=== PATIENT | female | born 1950 | race Caucasian/White ===

== ENCOUNTER 2020-06-15 17:47 | Outpatient (REF) | payer MEDICARE, MEDICAID, SELFPAY | END 2020-06-15 17:48 | disposition home or self-care (01) | LOC: HO.LNP 17:47 | PROVIDERS: Visit Provider Surgery | DX: L72.0 Epidermal cyst (principal) | CPT/HCPCS: 11401; 88304 ==

== ENCOUNTER → 2020-06-25 11:23 | Outpatient (BNVA) | payer MEDICARE, MEDICAID, SELFPAY | PROVIDERS: PCP Internal Medicine Geriatric Medicine; Visit Provider Surgery | DX: Z09 Encounter for follow-up examination after completed treatment for conditions other than malignant neoplasm (principal); Z87.2 Personal history of diseases of the skin and subcutaneous tissue | CPT/HCPCS: 99212 ==

== ENCOUNTER 2020-08-19 12:58 | Inpatient (IN) | payer MEDICARE, MEDICAID, SELFPAY ==
[2020-08-19] VITALS (10 sets, daily range): BP systolic 101–156; BP diastolic 52–78; PULSE 101–133; RESP 17–24; TEMP 36.6–37.1; O2SAT 96–99; BMI 32.9
--- NOTE | 2020-08-19 13:20 | ECG_ITS ---
Test Reason : AFIB Blood Pressure : / mmHG Vent. Rate : 111 BPM Atrial Rate : 394 BPM P-R Int : 000 ms QRS Dur : 106 ms QT Int : 390 ms P-R-T Axes : 000 016 122 degrees QTc Int : 530 ms Atrial fibrillation with rapid ventricular response with premature ventricular or aberrantly conducted complexes Nonspecific ST and T wave abnormality Prolonged QT Abnormal ECG When compared with ECG of 15-NOV-2006 13:50, Atrial fibrillation has replaced Sinus rhythm Vent. rate has increased BY [address] now depressed in Anterolateral leads T wave inversion now evident in Lateral leads Referred By: Pardeep Francois Electronically Signed By:Vishnu Mtz
--- NOTE | 2020-08-19 13:25 | XR_ITS ---
EXAMINATION: XR CHEST CLINICAL INFORMATION: Chest pain COMPARISON: Previous chest x-ray most recent June [address] April 2020 TECHNIQUE: Frontal view of the chest was obtained. FINDINGS: The cardiac and mediastinal contours are normal. There is bilateral airspace disease suggestive of pneumonia. There is no pleural effusion or pneumothorax. There are degenerative changes of the spine. XR/XR chest 1V IMPRESSION: Bilateral airspace disease probably representing pneumonia.
[2020-08-19] MEDS: 0.9 % Sodium Chloride 1,000 ML 999 ML IV ×2 (13:47→14:54)
[2020-08-19] MEDS: Metoclopramide HCl 10 MG/2 ML VIAL IVPUSH (13:47)
[2020-08-19 13:55] LABS: Basophils Percent Auto 0.2 % (0-2); Eosinophils Absolute Auto 0.1 X10*3/uL (0.0-0.4); Eosinophils Percent Auto 1.4 % (0-4); Hematocrit 31.4 % (37-47); Hemoglobin 10.5 g/dl (12.0-16.0); Imm Gran Abs Auto 0.03 X10*3/uL (0.00-0.03); Imm Gran Pct Auto 0.3 % (0.0-0.4); Lymphocytes Absolute Auto 1.6 X10*3/uL (1.2-4.9); Lymphocytes Percent Auto 18.7 % (20-40); MANUAL DIFF FLAG NO; Mean Corpuscular HGB Conc 33.4 g/dl (31.0-35.0); Mean Corpuscular Hemoglobin 30.3 pg (27.0-33.0); Mean Corpuscular Volume 90.8 fL (80-98); Mean Platelet Volume 9.9 fL (9.4-12.3); Monocytes Absolute Auto 0.7 X10*3/uL (0.1-1.2); Monocytes Percent Auto 7.5 % (2-11); Neutrophils Absolute Auto 6.2 X10*3/uL (2.0-8.3); Neutrophils Percent Auto 71.9 % (45-73); Platelet Count 518 X10*3/uL (160-400); Red Blood Count 3.46 X10*6/uL (4.20-5.50); Red Cell Distribution Width 13.2 % (11.0-16.0); White Blood Count 8.7 X10*3/uL (4.8-10.8)
[2020-08-19 14:01] LABS: INTERNATIONAL NORM RATIO 1.4 (0.9-1.1); Prothrombin Time 16.6 SEC (10.8-13.0)
[2020-08-19 14:04] LABS: Partial Thromboplastin Time 27.4 SEC (24.1-38.0)
[2020-08-19 14:11] LABS: D Dimer 3792 NG/ML
--- NOTE | 2020-08-19 14:13 | ED.ABDPAIN ---
HPI - Abdominal Pain General Chief Complaint: Abdominal Pain Stated Complaint: afib Time Seen by Provider: 08/19/20 13:24 Source: EMS Mode of arrival: EMS Limitations: no limitations History of Present Illness HPI narrative: This is a 69-year-old female with limited history secondary to her being poor historian and not many visits here as she primarily goes to [facility] she has past medical history that is significant for hypertension, hyperlipidemia, breast CA status post left breast mastectomy and bilateral knee replacement who presents today via EMS from home with complaint of 1 week of ongoing abdominal pain with associated nausea mild vomiting and profuse diarrhea per patient. States she has been contact her primary care over the past week and has tried several remedies without improving including nausea medicine fluid hydration which she vomits almost every time she has intake and additionally she did take Imodium for her diarrhea which did not seem to help her at all. She denies any chest pain or shortness of breath or headache. Did feel overall weak gradually over the past several days due to decreased p.o. intake. She denies any URI symptoms no cough or runny nose or fever. The diarrhea is described as watery/brown with very foul smell. Related Data Home Medications Medication Instructions Recorded Confirmed amlodipine 10 mg tablet 10 mg PO BEDTIME 06/15/20 08/19/20 anastrozole 1 mg tablet 1 mg PO DAILY 06/15/20 08/19/20 atorvastatin 80 mg tablet 80 mg PO BEDTIME 06/15/20 08/19/20 chlorthalidone 50 mg tablet 50 mg PO DAILY 06/15/20 08/19/20 clonazepam 1 mg tablet 1 mg PO DAILY 06/15/20 08/19/20 clopidogrel 75 mg tablet 75 mg PO DAILY 06/15/20 08/19/20 hydralazine 50 mg tablet 50 mg PO BID 06/15/20 08/19/20 lisinopril 40 mg tablet 40 mg PO DAILY 06/15/20 08/19/20 loratadine 10 mg tablet 10 mg PO DAILY 06/15/20 08/19/20 metoprolol succinate 100 mg 100 mg PO DAILY 06/15/20 08/19/20 tablet,extended release 24 hr oxycodone-acetaminophen 5 mg-325 1 tab PO Q8H PRN 06/15/20 08/19/20 mg tablet pantoprazole 20 mg tablet,delayed 20 mg PO DAILY 06/15/20 08/19/20 release sertraline 50 mg tablet 50 mg PO DAILY 06/15/20 08/19/20 primidone 50 mg PO BID 08/19/20 08/19/20 Allergies Allergy/AdvReac Type Severity Reaction Status Date / Time aspirin [ASA] Allergy Severe DIFFICULTY Verified 08/19/20 19:23 BREATHING Review of Systems Review of Systems Constitutional: No Weight loss, No Fever, No Chills, No Night Sweats, No Fatigue, No Malaise ENT/Mouth: No Hearing loss, No Ear Pain, No Nasal Congestion, No Sinus Pain, No Hoarseness, No sore throat, No Rhinorrhea, No Swallowing Difficulty Eyes: No Eye Pain, No Swelling, No Redness, No Foreign Body, No Discharge, No Vision Changes Cardiovascular: No Chest Pain, No SOB, No Dyspnea on Exertion, No Orthopnea, No Edema, No Palpitations Respiratory: No Cough, No Sputum, No Wheezing, No Smoke Exposure, No Dyspnea Gastrointestinal: As noted in HPI, No Hematochezia, No Melena Genitourinary: no irregular bleeding, No Dysuria, No Urinary Frequency, No Hematuria, No Urinary Incontinence, No Urgency, No Flank Pain, No Urinary Flow Changes Musculoskeletal: No joint pain, No Myalgias, No Joint Swelling Skin: No Skin Lesions, No rash Neuro: No Weakness, No Numbness, No Paresthesias, No Loss of Consciousness, No Dizziness, No Headache Psych: No Social Issues Heme/Lymph: No Bruising, No Bleeding,No Lymphadenopathy Endocrine: No Polyuria, No Polydipsia, No Temperature Intolerance Yes all other systems are reviewed and are negative Physical Exam Vital Signs: Vital Signs: Last Vital Signs Temp 98.8 F 08/19/20 20:00 Pulse 106 H 08/19/20 20:00 Resp 20 08/19/20 20:00 BP 105/56 L 08/19/20 20:00 Pulse Ox 99 08/19/20 20:00 Body Mass Index 32.9 Reviewed Const: General: cooperative and tired appearing; No acute distress Orientation/consciousness: patient oriented x3 HENMT: Head: Yes normal to inspection Ears: hearing grossly normal bilaterally Eyes: General: appearance normal, both eyes and all related structures Visual Silva: normal visual silva by confrontation Neck: Neck: Yes normal visual inspection and No tender Thyroid: Thyroid normal Chest: Chest palpation & inspection: normal inspection of the chest Resp: Effort & Inspection: normal respiratory effort Cardio: Jugular venous distension: no JVD Rate: Other (Irregular/AFib 95-120) GI: Inspection: Yes normal to inspection Palpation (GI): Soft to palpation Percussion: Yes normal to percussion Auscultation: normal bowel sounds : General: Yes no CVA tenderness Back/Spine/Pelvis: Back: no CVA tenderness Skin: General skin exam: no rashes or lesions noted Neuro: General: patient oriented x3 Extrem: General: Yes normal to inspection Course Course Course Narrative: In review 69-year-old female with history of hypertension, hyperlipidemia, CKD, breast CA status post mastectomy who presents with GI symptoms for the past 1 week upon arrival seems to be in AFib with RVR with no documented history. Will need labs, EKG and treat with gradual fluids. Clinically appears to be very dry. Previous labs reviewed has history of CKD with GFR in the 30s would prefer abdominal CT with IV contrast given the new onset AFib make sure there is no ischemic cause of the belly pain. Reevaluation(s) Reevaluation #1: 1413 Chest x-ray at this time shows ?bilateral airspace disease probably represent pneumonia? Lactic acid/blood cultures ordered Ceftriaxone ordered for presumed Hcap, suspicion for COVID-19 given her exposure to her daughter Labs show no leukocytosis, afebrile heart rate ranging from 110 to 115 AFib on bedside monitor CHADS2 Score for Atrial Fibrillation Stroke Risk: 1 I did speak to her daughter who also has the same name phone number [phone] She tells me that her mom has not been feeling well for past 1 week she herself has not been able to check on her as she had COVID-19 and quarantine for 14 days she was trying to reach her by phone was unable to and was finally will check on her over the past several days and appearing weak/dehydrated to her and not taking her medications as prescribed. No recent hospitalization or antibiotics. Reevaluation #2: COVID positive, D-dimer elevated though clinically does not appear to have pulmonary embolism as her pulse ox is 98-99% on room air. Given poor renal function in the setting of CKD V/Q scan was done showing low probability. CT of the abdomen also done dry did not show any acute findings. Abdominal exam has been benign. Stool specks ordered however has not had any bowel movement here in the ED. bedside occult negative. Initially she was in rapid AFib with RVR in the low 100s to 110's which somewhat progressed to 130s requiring Cardizem drip. BP maintained. Renal function significantly elevated from the previous after 2 L of fluid renal function improved though metabolic acidosis, hypokalemia which was repleted case discussed with nephrology Dr. Medrano covering for Dr. Clark who is familiar with the patient recommends LR at 75 cc an hour x1 L and repeat labs in the morning no need for bicarb drip at this time. Will follow in the morning. Additional Reevaluation(s): I spoke to the daughter as well as the son several times on the phone to give up days periodically about mother's care with her consent. Consultations Consultation #1: Nephrology Dr. Medrano Consultation #2: Hospitalist MDM - Abdominal Pain Lab Data Result diagrams: 08/19/20 19:45 08/19/20 17:01 Labs: Lab Results 08/19/20 08/19/20 08/19/20 Range/Units 13:39 13:39 13:39 WBC 8.7 (4.8-10.8) X10*3/uL RBC 3.46 L (4.20-5.50) X10*6/uL Hgb 10.5 L (12.0-16.0) g/dl Hct 31.4 L (37-47) % MCV 90.8 (80-98) fL MCH 30.3 (27.0-33.0) pg MCHC 33.4 (31.0-35.0) g/dl RDW 13.2 (11.0-16.0) % Plt Count 518 H (160-400) X10*3/uL MPV 9.9 (9.4-12.3) fL Immature Gran % (Auto) 0.3 (0.0-0.4) % Neut % (Auto) 71.9 (45-73) % Lymph % (Auto) 18.7 L (20-40) % [place] % (Auto) 7.5 (2-11) % Eos % (Auto) 1.4 (0-4) % Baso % (Auto) 0.2 (0-2) % Lymph # (Auto) 1.6 (1.2-4.9) X10*3/uL [place] # (Auto) 0.7 (0.1-1.2) X10*3/uL Eos # (Auto) 0.1 (0.0-0.4) X10*3/uL Baso # (Auto) 0.0 (0.0-0.2) X10*3/uL Abs Immat Gran (auto) 0.03 (0.00-0.03) X10*3/uL Absolute Neuts (auto) 6.2 (2.0-8.3) X10*3/uL Absolute Nucleated RBC 0.000 (0.0-0.012) X10*3/uL Nucleated RBC % (auto) 0.0 (0.0-0.2) /100WBC PT (10.8-13.0) SEC INR (0.9-1.1) APTT (24.1-38.0) SEC PTT (Heparin Protocol) (53-77.9) SEC D-Dimer NG/ML Sodium 139 (135-145) mmol/L Potassium 3.8 (3.3-5.1) mmol/l Chloride 104 (96-108) mmol/L Carbon Dioxide 17 L (22-29) mmol/L Anion Gap 22 H (12-20) BUN 170 H* (9-16) mg/dL Creatinine 3.83 H (0.5-1.4) mg/dL Estim Creat Clear Calc 13.5 Estimated GFR 12 Random Glucose 124 H (60-115) mg/dL Lactic Acid (0.5-2.0) mmol/L Calcium 8.8 (8.4-10.2) mg/dL Magnesium (1.6-2.6) mg/dL Ferritin 850 H (10-250) ng/mL Total Bilirubin 0.5 (0.0-1.0) mg/dL AST 40 H (5-31) U/L ALT 75 H (0-31) U/L Alkaline Phosphatase 104 (39-117) U/L Lactate Dehydrogenase 247 H (122-220) U/L Troponin I High Sens 24.2 H (<3.5-17.0) ng/L C-Reactive Protein 5.10 H (< or = 0.50) mg/dL Total Protein 7.8 (6.5-8.0) g/dL Albumin 4.2 (3.5-5.0) g/dL Procalcitonin ng/mL TSH 1.06 (0.32-4.0) uIU/mL Urine Color Urine Appearance Urine pH (5.0-8.0) Ur Specific [place] (1.005-1.025) Urine Protein (NEG-TRACE) MG/DL Urine Glucose (UA) (NEG) MG/DL Urine Ketones (NEG) MG/DL Urine Blood (NEG) Urine Nitrite (NEG) Ur Leukocyte Esterase (NEG) Urine RBC (0) /HPF Urine WBC (0-4) /HPF Ur Squamous Epith Cells /LPF Amorphous Sediment /LPF Urine Bacteria /LPF Stool Occult Blood (NEG) C. difficile Toxin A&B (Negative) C. difficile Antigen (Negative) C. difficile Interpret Coronavirus (PCR) (Negative) Influenza Type A (PCR) (Negative) Influenza Type B (PCR) (Negative) RSV RNA Qual (PCR) (Negative) 08/19/20 08/19/20 08/19/20 Range/Units 13:39 13:39 13:39 WBC (4.8-10.8) X10*3/uL RBC (4.20-5.50) X10*6/uL Hgb (12.0-16.0) g/dl Hct (37-47) % MCV (80-98) fL MCH (27.0-33.0) pg MCHC (31.0-35.0) g/dl RDW (11.0-16.0) % Plt Count (160-400) X10*3/uL MPV (9.4-12.3) fL Immature Gran % (Auto) (0.0-0.4) % Neut % (Auto) (45-73) % Lymph % (Auto) (20-40) % [place] % (Auto) (2-11) % Eos % (Auto) (0-4) % Baso % (Auto) (0-2) % Lymph # (Auto) (1.2-4.9) X10*3/uL [place] # (Auto) (0.1-1.2) X10*3/uL Eos # (Auto) (0.0-0.4) X10*3/uL Baso # (Auto) (0.0-0.2) X10*3/uL Abs Immat Gran (auto) (0.00-0.03) X10*3/uL Absolute Neuts (auto) (2.0-8.3) X10*3/uL Absolute Nucleated RBC (0.0-0.012) X10*3/uL Nucleated RBC % (auto) (0.0-0.2) /100WBC PT 16.6 H (10.8-13.0) SEC INR 1.4 H (0.9-1.1) APTT 27.4 (24.1-38.0) SEC PTT (Heparin Protocol) (53-77.9) SEC D-Dimer 3792 NG/ML Sodium (135-145) mmol/L Potassium (3.3-5.1) mmol/l Chloride (96-108) mmol/L Carbon Dioxide (22-29) mmol/L Anion Gap (12-20) BUN (9-16) mg/dL Creatinine (0.5-1.4) mg/dL Estim Creat Clear Calc Estimated GFR Random Glucose (60-115) mg/dL Lactic Acid (0.5-2.0) mmol/L Calcium (8.4-10.2) mg/dL Magnesium 3.1 H (1.6-2.6) mg/dL Ferritin (10-250) ng/mL Total Bilirubin (0.0-1.0) mg/dL AST (5-31) U/L ALT (0-31) U/L Alkaline Phosphatase (39-117) U/L Lactate Dehydrogenase (122-220) U/L Troponin I High Sens (<3.5-17.0) ng/L C-Reactive Protein (< or = 0.50) mg/dL Total Protein (6.5-8.0) g/dL Albumin (3.5-5.0) g/dL Procalcitonin 0.28 ng/mL TSH (0.32-4.0) uIU/mL Urine Color Urine Appearance Urine pH (5.0-8.0) Ur Specific [place] (1.005-1.025) Urine Protein (NEG-TRACE) MG/DL Urine Glucose (UA) (NEG) MG/DL Urine Ketones (NEG) MG/DL Urine Blood (NEG) Urine Nitrite (NEG) Ur Leukocyte Esterase (NEG) Urine RBC (0) /HPF Urine WBC (0-4) /HPF Ur Squamous Epith Cells /LPF Amorphous Sediment /LPF Urine Bacteria /LPF Stool Occult Blood (NEG) C. difficile Toxin A&B (Negative) C. difficile Antigen (Negative) C. difficile Interpret Coronavirus (PCR) (Negative) Influenza Type A (PCR) (Negative) Influenza Type B (PCR) (Negative) RSV RNA Qual (PCR) (Negative) 08/19/20 08/19/20 08/19/20 Range/Units 15:10 15:29 16:07 WBC (4.8-10.8) X10*3/uL RBC (4.20-5.50) X10*6/uL Hgb (12.0-16.0) g/dl Hct (37-47) % MCV (80-98) fL MCH (27.0-33.0) pg MCHC (31.0-35.0) g/dl RDW (11.0-16.0) % Plt Count (160-400) X10*3/uL MPV (9.4-12.3) fL Immature Gran % (Auto) (0.0-0.4) % Neut % (Auto) (45-73) % Lymph % (Auto) (20-40) % [place] % (Auto) (2-11) % Eos % (Auto) (0-4) % Baso % (Auto) (0-2) % Lymph # (Auto) (1.2-4.9) X10*3/uL [place] # (Auto) (0.1-1.2) X10*3/uL Eos # (Auto) (0.0-0.4) X10*3/uL Baso # (Auto) (0.0-0.2) X10*3/uL Abs Immat Gran (auto) (0.00-0.03) X10*3/uL Absolute Neuts (auto) (2.0-8.3) X10*3/uL Absolute Nucleated RBC (0.0-0.012) X10*3/uL Nucleated RBC % (auto) (0.0-0.2) /100WBC PT (10.8-13.0) SEC INR (0.9-1.1) APTT (24.1-38.0) SEC PTT (Heparin Protocol) (53-77.9) SEC D-Dimer NG/ML Sodium (135-145) mmol/L Potassium (3.3-5.1) mmol/l Chloride (96-108) mmol/L Carbon Dioxide (22-29) mmol/L Anion Gap (12-20) BUN (9-16) mg/dL Creatinine (0.5-1.4) mg/dL Estim Creat Clear Calc Estimated GFR Random Glucose (60-115) mg/dL Lactic Acid 1.1 (0.5-2.0) mmol/L Calcium (8.4-10.2) mg/dL Magnesium (1.6-2.6) mg/dL Ferritin (10-250) ng/mL Total Bilirubin (0.0-1.0) mg/dL AST (5-31) U/L ALT (0-31) U/L Alkaline Phosphatase (39-117) U/L Lactate Dehydrogenase (122-220) U/L Troponin I High Sens (<3.5-17.0) ng/L C-Reactive Protein (< or = 0.50) mg/dL Total Protein (6.5-8.0) g/dL Albumin (3.5-5.0) g/dL Procalcitonin ng/mL TSH (0.32-4.0) uIU/mL Urine Color YELLOW Urine Appearance CLEAR Urine pH 5.0 (5.0-8.0) Ur Specific [place] 1.015 (1.005-1.025) Urine Protein NEG (NEG-TRACE) MG/DL Urine Glucose (UA) NEG (NEG) MG/DL Urine Ketones NEG (NEG) MG/DL Urine Blood NEG (NEG) Urine Nitrite NEG (NEG) Ur Leukocyte Esterase NEG (NEG) Urine RBC 0-2 (0) /HPF Urine WBC 0 (0-4) /HPF Ur Squamous Epith Cells TRACE /LPF Amorphous Sediment 1+ /LPF Urine Bacteria NONE /LPF Stool Occult Blood (NEG) C. difficile Toxin A&B (Negative) C. difficile Antigen (Negative) C. difficile Interpret Coronavirus (PCR) POSITIVE A (Negative) Influenza Type A (PCR) NEGATIVE (Negative) Influenza Type B (PCR) NEGATIVE (Negative) RSV RNA Qual (PCR) NEGATIVE (Negative) 08/19/20 08/19/20 08/19/20 Range/Units 17:01 17:01 19:41 WBC (4.8-10.8) X10*3/uL RBC (4.20-5.50) X10*6/uL Hgb (12.0-16.0) g/dl Hct (37-47) % MCV (80-98) fL MCH (27.0-33.0) pg MCHC (31.0-35.0) g/dl RDW (11.0-16.0) % Plt Count (160-400) X10*3/uL MPV (9.4-12.3) fL Immature Gran % (Auto) (0.0-0.4) % Neut % (Auto) (45-73) % Lymph % (Auto) (20-40) % [place] % (Auto) (2-11) % Eos % (Auto) (0-4) % Baso % (Auto) (0-2) % Lymph # (Auto) (1.2-4.9) X10*3/uL [place] # (Auto) (0.1-1.2) X10*3/uL Eos # (Auto) (0.0-0.4) X10*3/uL Baso # (Auto) (0.0-0.2) X10*3/uL Abs Immat Gran (auto) (0.00-0.03) X10*3/uL Absolute Neuts (auto) (2.0-8.3) X10*3/uL Absolute Nucleated RBC (0.0-0.012) X10*3/uL Nucleated RBC % (auto) (0.0-0.2) /100WBC PT (10.8-13.0) SEC INR (0.9-1.1) APTT (24.1-38.0) SEC PTT (Heparin Protocol) (53-77.9) SEC D-Dimer NG/ML Sodium 142 (135-145) mmol/L Potassium 2.9 L D (3.3-5.1) mmol/l Chloride 117 H (96-108) mmol/L Carbon Dioxide 12 L (22-29) mmol/L Anion Gap 16 (12-20) BUN 126 H* D (9-16) mg/dL Creatinine 2.50 H (0.5-1.4) mg/dL Estim Creat Clear Calc 20.7 Estimated GFR 19 Random Glucose 95 (60-115) mg/dL Lactic Acid (0.5-2.0) mmol/L Calcium 6.3 L D (8.4-10.2) mg/dL Magnesium (1.6-2.6) mg/dL Ferritin (10-250) ng/mL Total Bilirubin (0.0-1.0) mg/dL AST (5-31) U/L ALT (0-31) U/L Alkaline Phosphatase (39-117) U/L Lactate Dehydrogenase (122-220) U/L Troponin I High Sens 25.0 H (<3.5-17.0) ng/L C-Reactive Protein (< or = 0.50) mg/dL Total Protein (6.5-8.0) g/dL Albumin (3.5-5.0) g/dL Procalcitonin ng/mL TSH (0.32-4.0) uIU/mL Urine Color Urine Appearance Urine pH (5.0-8.0) Ur Specific [place] (1.005-1.025) Urine Protein (NEG-TRACE) MG/DL Urine Glucose (UA) (NEG) MG/DL Urine Ketones (NEG) MG/DL Urine Blood (NEG) Urine Nitrite (NEG) Ur Leukocyte Esterase (NEG) Urine RBC (0) /HPF Urine WBC (0-4) /HPF Ur Squamous Epith Cells /LPF Amorphous Sediment /LPF Urine Bacteria /LPF Stool Occult Blood NEG (NEG) C. difficile Toxin A&B (Negative) C. difficile Antigen (Negative) C. difficile Interpret Coronavirus (PCR) (Negative) Influenza Type A (PCR) (Negative) Influenza Type B (PCR) (Negative) RSV RNA Qual (PCR) (Negative) 08/19/20 08/19/20 08/19/20 Range/Units 19:41 19:45 19:45 WBC 8.4 (4.8-10.8) X10*3/uL RBC 3.19 L (4.20-5.50) X10*6/uL Hgb 9.6 L (12.0-16.0) g/dl Hct 29.2 L (37-47) % MCV 91.5 (80-98) fL MCH 30.1 (27.0-33.0) pg MCHC 32.9 (31.0-35.0) g/dl RDW 13.1 (11.0-16.0) % Plt Count 526 H (160-400) X10*3/uL MPV 9.7 (9.4-12.3) fL Immature Gran % (Auto) (0.0-0.4) % Neut % (Auto) (45-73) % Lymph % (Auto) (20-40) % [place] % (Auto) (2-11) % Eos % (Auto) (0-4) % Baso % (Auto) (0-2) % Lymph # (Auto) (1.2-4.9) X10*3/uL [place] # (Auto) (0.1-1.2) X10*3/uL Eos # (Auto) (0.0-0.4) X10*3/uL Baso # (Auto) (0.0-0.2) X10*3/uL Abs Immat Gran (auto) (0.00-0.03) X10*3/uL Absolute Neuts (auto) (2.0-8.3) X10*3/uL Absolute Nucleated RBC 0.000 (0.0-0.012) X10*3/uL Nucleated RBC % (auto) 0.0 (0.0-0.2) /100WBC PT 18.5 H (10.8-13.0) SEC INR 1.6 H (0.9-1.1) APTT (24.1-38.0) SEC PTT (Heparin Protocol) 74.2 (53-77.9) SEC D-Dimer NG/ML Sodium (135-145) mmol/L Potassium (3.3-5.1) mmol/l Chloride (96-108) mmol/L Carbon Dioxide (22-29) mmol/L Anion Gap (12-20) BUN (9-16) mg/dL Creatinine (0.5-1.4) mg/dL Estim Creat Clear Calc Estimated GFR Random Glucose (60-115) mg/dL Lactic Acid (0.5-2.0) mmol/L Calcium (8.4-10.2) mg/dL Magnesium (1.6-2.6) mg/dL Ferritin (10-250) ng/mL Total Bilirubin (0.0-1.0) mg/dL AST (5-31) U/L ALT (0-31) U/L Alkaline Phosphatase (39-117) U/L Lactate Dehydrogenase (122-220) U/L Troponin I High Sens (<3.5-17.0) ng/L C-Reactive Protein (< or = 0.50) mg/dL Total Protein (6.5-8.0) g/dL Albumin (3.5-5.0) g/dL Procalcitonin ng/mL TSH (0.32-4.0) uIU/mL Urine Color Urine Appearance Urine pH (5.0-8.0) Ur Specific [place] (1.005-1.025) Urine Protein (NEG-TRACE) MG/DL Urine Glucose (UA) (NEG) MG/DL Urine Ketones (NEG) MG/DL Urine Blood (NEG) Urine Nitrite (NEG) Ur Leukocyte Esterase (NEG) Urine RBC (0) /HPF Urine WBC (0-4) /HPF Ur Squamous Epith Cells /LPF Amorphous Sediment /LPF Urine Bacteria /LPF Stool Occult Blood (NEG) C. difficile Toxin A&B Negative (Negative) C. difficile Antigen Negative (Negative) C. difficile Interpret SEE NOTE Coronavirus (PCR) (Negative) Influenza Type A (PCR) (Negative) Influenza Type B (PCR) (Negative) RSV RNA Qual (PCR) (Negative) Imaging Data CT scan - abdomen: Radiologist's impression: [place] [id number] CT Scan Report Signed Patient: Soren Caicedo#: [id number] : 1950Acct:[id number] Age/Sex: 69 / FADM Date: 08/19/20 Loc: HO.ED Attending Dr: Ordering Physician: Pardeep Francois [employer] DEL[employer]HICLE TEAM TECHNICIAN Date of Service: 08/19/20 Procedure(s): CT abdomen pelvis wo con Accession Number(s): [id number] cc: Pardeep Francois [employer] DELIV[employer]HICLE TEAM TECHNICIAN~ EXAMINATION: CT ABDOMEN AND PELVIS WITHOUT CONTRAST CLINICAL INFORMATION: Abdominal pain. COMPARISON: Chest CT 04/18/2020. Chest radiograph earlier today. TECHNIQUE: Multidetector volumetric imaging was performed from the superior aspect of the liver through the pubic symphysis. Sagittal and coronal reformatted images were obtained on the technologist's workstation. This CT examination was performed using dose optimization techniques as appropriate, variously including the following: *Automated exposure control *Adjustment of mA and/or kV according to patient size (this includes techniques or standardized protocols for targeted exams where dose is matched to indication/reason for exam; i.e. extremities or head) *Use of iterative reconstruction technique DLP: 597 mGy-cm FINDINGS: LUNG BASES: Scattered ground-glass infiltrates are present suggestive of COVID pneumonia. Inferior aspect of a right breast prosthesis is present. A small hiatal hernia is present. LIVER, GALLBLADDER, AND BILIARY TREE: The liver is normal in size, shape, and attenuation. A tiny punctate granuloma is noted near the risa hepatis. No focal hepatic lesion or biliary ductal dilatation is present. The gallbladder contains layering small gallstones but is otherwise unremarkable with no evidence of wall thickening, or obvious pericholecystic inflammatory changes. PANCREAS: Unremarkable. SPLEEN: Unremarkable. ADRENAL GLANDS: Unremarkable. KIDNEYS AND URETERS: The kidneys are normal in size, shape, and attenuation. No hydronephrosis, hydroureter, or calculi seen. No perinephric stranding. BLADDER: Unremarkable. GASTROINTESTINAL TRACT: The small and large bowel are unremarkable. The appendix is not seen. ABDOMINAL WALL: No significant hernia is appreciated. LYMPH NODES: No retroperitoneal lymphadenopathy is present. VASCULAR: Calcific atherosclerotic change is present in the aorta without aneurysm. PELVIC VISCERA: An anteverted uterus is present. An abnormal adnexal mass or free intraperitoneal fluid is not seen. OSSEOUS STRUCTURES: Degenerative change is present in the spine with pedicular screws and fixation at L4-L5. No bony destructive lesions seen. CT/CT abdomen pelvis wo con IMPRESSION: Findings the lung bases suggestive of COVID pneumonia. Cholelithiasis without cholecystitis. Tiny hepatic granuloma. Degenerative and postoperative changes in the spine. Dictated By:BRITTANY MCKEON MD Signed By:<Electronically signed by BRITTANY MCKEON MD in [facility]>08/19/20 1712 DD/ 1441 TD/TT: Rock Crushing Machine Operator: JOSEFINA Pulmonary perfusion imaging: Radiologist's impression: [place] [id number] [place] [address] Nuclear Medicine Report Signed Patient: Soren Caicedo#: [id number] : 1950Acct:[id number] Age/Sex: 69 / FADM Date: 08/19/20 Loc: HO.ED Attending Dr: Ordering Physician: Pardeep Francois NP Date of Service: 08/19/20 Procedure(s): NM pul perfusion Accession Number(s): [id number] cc: Pardeep Francois [employer] DELIV[employer]HICLE TEAM TECHNICIAN~ EXAMINATION: PULMONARY PERFUSION STUDY CLINICAL INFORMATION: Elevated d-dimer. COMPARISON: Chest x-ray earlier 08/19/2020. TECHNIQUE: The patient received 3.5 mCi Tc-99m MAA intravenously and an 8 view perfusion study was performed. FINDINGS: No segmental perfusion defects are present. There is homogeneous distribution of activity bilaterally. There are no focal anatomic appearing perfusion defects present. NM/NM pul perfusion IMPRESSION: 1. Very low probability radionuclide lung perfusion scan. 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 Multiple consultations with Nephrology, hospitalist. Discharge Plan Discharge Clinical Impression: Acute kidney injury superimposed on CKD, Pneumonia due to COVID-19 virus, Atrial fibrillation with RVR, Hypokalemia, Metabolic acidosis, Diarrhea Patient Disposition: Admitted As Inpatient [facility] Past Medical History Medical History (Updated 08/19/20 @ 20:54 by Pardeep Francois NP) Anemia Breast cancer CKD (chronic kidney disease) Hyperlipidemia Hypertension Stroke Tremor Surgical History History of appendectomy History of right mastectomy (~2015) History of spinal fusion Family History Family History Mother History of pancreatic cancer Brother History of pancreatic cancer Social History Social History Alcohol intake: never Smoking Status: Never smoker Use of substances other than those prescribed or required for medical reasons: No Advance Directives: No Advance Directives Information Provided: Yes
[2020-08-19 14:32] LABS: Magnesium 3.1 mg/dL (1.6-2.6)
[2020-08-19 14:39] LABS: Alanine Aminotransferase 75 U/L (0-31); Albumin Level 4.2 g/dL (3.5-5.0); Alkaline Phosphatase 104 U/L (39-117); Anion Gap 22 (12-20); Aspartate Amino Transferase 40 U/L (5-31); Bilirubin Total 0.5 mg/dL (0.0-1.0); Calcium 8.8 mg/dL (8.4-10.2); Carbon Dioxide 17 mmol/L (22-29); Chloride 104 mmol/L (96-108); Creatinine Clr Calc Pharmacy 13.5; Estimated Glomerular Filt Rate 12; Glucose Random 124 mg/dL (60-115); Potassium 3.8 mmol/l (3.3-5.1); Sodium 139 mmol/L (135-145); Total Protein 7.8 g/dL (6.5-8.0)
--- NOTE | 2020-08-19 14:41 | CT_ITS ---
EXAMINATION: CT ABDOMEN AND PELVIS WITHOUT CONTRAST CLINICAL INFORMATION: Abdominal pain. COMPARISON: Chest CT 04/18/2020. Chest radiograph earlier today. TECHNIQUE: Multidetector volumetric imaging was performed from the superior aspect of the liver through the pubic symphysis. Sagittal and coronal reformatted images were obtained on the technologist's workstation. This CT examination was performed using dose optimization techniques as appropriate, variously including the following: *Automated exposure control *Adjustment of mA and/or kV according to patient size (this includes techniques or standardized protocols for targeted exams where dose is matched to indication/reason for exam; i.e. extremities or head) *Use of iterative reconstruction technique DLP: 597 mGy-cm FINDINGS: LUNG BASES: Scattered ground-glass infiltrates are present suggestive of COVID pneumonia. Inferior aspect of a right breast prosthesis is present. A small hiatal hernia is present. LIVER, GALLBLADDER, AND BILIARY TREE: The liver is normal in size, shape, and attenuation. A tiny punctate granuloma is noted near the risa hepatis. No focal hepatic lesion or biliary ductal dilatation is present. The gallbladder contains layering small gallstones but is otherwise unremarkable with no evidence of wall thickening, or obvious pericholecystic inflammatory changes. PANCREAS: Unremarkable. SPLEEN: Unremarkable. ADRENAL GLANDS: Unremarkable. KIDNEYS AND URETERS: The kidneys are normal in size, shape, and attenuation. No hydronephrosis, hydroureter, or calculi seen. No perinephric stranding. BLADDER: Unremarkable. GASTROINTESTINAL TRACT: The small and large bowel are unremarkable. The appendix is not seen. ABDOMINAL WALL: No significant hernia is appreciated. LYMPH NODES: No retroperitoneal lymphadenopathy is present. VASCULAR: Calcific atherosclerotic change is present in the aorta without aneurysm. PELVIC VISCERA: An anteverted uterus is present. An abnormal adnexal mass or free intraperitoneal fluid is not seen. OSSEOUS STRUCTURES: Degenerative change is present in the spine with pedicular screws and fixation at L4-L5. No bony destructive lesions seen. CT/CT abdomen pelvis wo con IMPRESSION: Findings the lung bases suggestive of COVID pneumonia. Cholelithiasis without cholecystitis. Tiny hepatic granuloma. Degenerative and postoperative changes in the spine.
--- NOTE | 2020-08-19 14:41 | NM_ITS ---
EXAMINATION: PULMONARY PERFUSION STUDY CLINICAL INFORMATION: Elevated d-dimer. COMPARISON: Chest x-ray earlier 08/19/2020. TECHNIQUE: The patient received 3.5 mCi Tc-99m MAA intravenously and an 8 view perfusion study was performed. FINDINGS: No segmental perfusion defects are present. There is homogeneous distribution of activity bilaterally. There are no focal anatomic appearing perfusion defects present. NM/NM pul perfusion IMPRESSION: 1. Very low probability radionuclide lung perfusion scan.
[2020-08-19 14:52] LABS: Blood Urea Nitrogen 170 mg/dL (9-16)
[2020-08-19 14:53] LABS: Thyroid Stimulating Hormone 1.06 uIU/mL (0.32-4.0)
[2020-08-19 14:54] LABS: Troponin-I High Sensitivity 24.2 ng/L (<3.5-17.0)
[2020-08-19] MEDS: cefTRIAXone sodium 1 GM in 0.9 % Sodium Chloride 50 ML IV (15:30)
[2020-08-19] MEDS: dilTIAZem HCL 50 MG/10 ML VIAL 10 MG IVPUSH (15:41)
[2020-08-19 15:59] LABS: Lactic Acid 1.1 mmol/L (0.5-2.0)
[2020-08-19 16:17] LABS: Influenza A PCR NEGATIVE (Negative); Influenza B PCR NEGATIVE (Negative); Resp Syncy Virus RNA Qual PCR NEGATIVE (Negative); SARS COV2 PCR INHOUSE POSITIVE (Negative)
[2020-08-19 16:51] LABS: Glucose Urine UA NEG (NEG); Leukocyte Esterase Urine NEG (NEG); Nitrite Urine NEG (NEG); Specific Gravity - Urine 1.015 (1.005-1.025); Urine Blood NEG (NEG); Urine Ketones NEG (NEG); Urine Protein NEG (NEG-TRACE)
[2020-08-19 16:54] LABS: Appearance Urine CLEAR; Color Urine YELLOW
[2020-08-19 17:07] LABS: Amorphous Sediment Urine 1+ /LPF; RBC Urine 0-2 /HPF (0); Squamous Epithelial Cell Urine TRACE /LPF; WBC Urine 0 /HPF (0-4)
[2020-08-19] MEDS: dilTIAZem HCL 125 MG in 0.9 % Sodium Chloride 100 ML 10 MG IVCONT (17:07)
[2020-08-19 17:33] LABS: Glucose Random 95 mg/dL (60-115)
--- NOTE | 2020-08-19 17:35 | PC.NURSE ---
pt returned from nuc med scan, placed in iso d/t +covid. pt appears comfortable, no questions or concerns at this time. pt understanding of this rn speaking in latvian, pt educated if she needs interpretter to ask. medicated per emar. vss. awaiting lab results and add on lab work results.
[2020-08-19 17:42] LABS: Anion Gap 16 (12-20); Blood Urea Nitrogen 126 mg/dL (9-16); Calcium 6.3 mg/dL (8.4-10.2); Carbon Dioxide 12 mmol/L (22-29); Chloride 117 mmol/L (96-108); Creatinine Clr Calc Pharmacy 20.7; Estimated Glomerular Filt Rate 19; Potassium 2.9 mmol/l (3.3-5.1); Sodium 142 mmol/L (135-145)
[2020-08-19 17:47] LABS: Lactate Dehydrogenase 247 U/L (122-220)
[2020-08-19 18:09] LABS: Ferritin 850 ng/mL (10-250)
[2020-08-19 18:14] LABS: Procalcitonin 0.28 ng/mL
[2020-08-19] MEDS: Heparin Sodium,Porcine 5,000 UNIT/ML VIAL 5000 UNIT IVPUSH (18:21)
--- NOTE | 2020-08-19 18:26 | PC.NURSE ---
THIS RN IN TO MEDICATE PT, PT ASKING TO LEAVE AMA. PROVIDER AND INTERPRETTER AT BEDSIDE. PT IS ASKING TO BE DISCHARGED HOME BUT WHEN PRESSED WHY SHE NO LONGER WANTS TO STAY, PT DOES NOT GIVE REASON OTHER THAN I HAVE RESPONSIBILITIES AND I DONT WANT TO BE HOSPITALS RESPONSIBILIY . PROVIDER AND PT CONVERSING W FAMILY VIA TELEPHONE REGARDING PT STATUS AND CONSEQUENCES OF LEAVING AMA. WCTM.
[2020-08-19] MEDS: LORazepam 2 MG/ML VIAL 1 MG IVPUSH (18:42)
[2020-08-19 19:52] LABS: Hematocrit 29.2 % (37-47); Hemoglobin 9.6 g/dl (12.0-16.0); Mean Corpuscular HGB Conc 32.9 g/dl (31.0-35.0); Mean Corpuscular Hemoglobin 30.1 pg (27.0-33.0); Mean Corpuscular Volume 91.5 fL (80-98); Mean Platelet Volume 9.7 fL (9.4-12.3); Platelet Count 526 X10*3/uL (160-400); Red Blood Count 3.19 X10*6/uL (4.20-5.50); Red Cell Distribution Width 13.1 % (11.0-16.0); White Blood Count 8.4 X10*3/uL (4.8-10.8)
--- NOTE | 2020-08-19 19:54 | P.HPHOSP_ITS ---
History of Present Illness Date of Service: 08/19/20 <WANDA Ramos Last Filed: 08/19/20 20:09> Chief Complaint: Abdominal pain, nausea, vomiting, diarrhea <WANDA Ramos Last Filed: 08/19/20 20:09> This is a 69-year-old female who originally presented to the emergency department with abdominal complaints. She reported abdominal pain as well as the vomiting and diarrhea. She underwent a CT scan of her abdomen which showed no abdominal pathology. It did however show findings in the lung bases suggestive of COVID pneumonia. She did in fact test positive for coronavirus. Her inflammatory markers including CRP, LDH and ferritin were elevated. However she was not noted to be hypoxic. She denies any shortness of breath or cough. She denies any significant fever. She was noted to be in new onset atrial fibrillation with rapid ventricular response and was started on Cardizem drip as well as heparin for anticoagulation given a chads Vasc score of 3. Lab work was significant for acute on chronic kidney injury and she was treated with normal saline. Repeat chemistry showed no improvement in her renal function however her bicarb dropped to 12 and potassium dropped to 2.9. Nephrology was consulted and recommended giving 75 cc of LR x1 L and repeating chemistries. Did not feel that bicarb was warranted at this time. Her D-dimer was elevated however V/Q scan showed low probability of PE. <WANDA Ramos - Last Filed: 08/19/20 20:09> Review of Systems Review of Systems: Yes all other systems are reviewed and are negative <WANDA Ramos Last Filed: 08/19/20 20:09> Constitutional: Constitutional: Denies chills and Denies fever(s) <WANDA Ramos Last Filed: 08/19/20 20:09> Cardiovascular: Cardiovascular: Denies chest pain <WANDA Ramos Last Filed: 08/19/20 20:09> Respiratory: Respiratory: Denies cough <WANDA Ramos Last Filed: 08/19/20 20:09> Neurologic: Reports confusion <WANDA Ramos Last Filed: 08/19/20 20:09> Psychiatric: Psychiatric: Reports confusion <WANDA Ramos - Last Filed: 08/19/20 20:09> [facility], [facility] Medical History: Medical History Anemia Breast cancer CKD (chronic kidney disease) Hyperlipidemia Hypertension Stroke Tremor <WANDA Ramos - Last Filed: 08/19/20 20:09> Functional capacity: independent ambulation <WANDA Ramos - Last Filed: 08/19/20 20:09> Family History: Family History Mother History of pancreatic cancer Brother History of pancreatic cancer <WANDA Ramos - Last Filed: 08/19/20 20:09> Family history: reviewed and not pertinent <WANDA Ramos - Last Filed: 08/19/20 20:09> Surgical History: Surgical History History of appendectomy History of right mastectomy (~2015) History of spinal fusion <WANDA Ramos - Last Filed: 08/19/20 20:09> Social History: Social History Alcohol intake: never Smoking Status: Never smoker Use of substances other than those prescribed or required for medical reasons: No Advance Directives: No Advance Directives Information Provided: Yes <WANDA Ramos - Last Filed: 08/19/20 20:09> Meds Allergies/Adverse reactions: Allergies Allergy/AdvReac Type Severity Reaction Status Date / Time aspirin [ASA] Allergy Severe DIFFICULTY Verified 08/19/20 19:23 BREATHING <WANDA Ramos - Last Filed: 08/19/20 20:09> Home medications: Home Medications Medication Instructions Recorded Confirmed Type amlodipine 10 mg tablet 10 mg PO BEDTIME 06/15/20 08/19/20 History anastrozole 1 mg tablet 1 mg PO DAILY 06/15/20 08/19/20 History atorvastatin 80 mg tablet 80 mg PO BEDTIME 06/15/20 08/19/20 History chlorthalidone 50 mg tablet 50 mg PO DAILY 06/15/20 08/19/20 History clonazepam 1 mg tablet 1 mg PO DAILY 06/15/20 08/19/20 History clopidogrel 75 mg tablet 75 mg PO DAILY 06/15/20 08/19/20 History hydralazine 50 mg tablet 50 mg PO BID 06/15/20 08/19/20 History lisinopril 40 mg tablet 40 mg PO DAILY 06/15/20 08/19/20 History loratadine 10 mg tablet 10 mg PO DAILY 06/15/20 08/19/20 History metoprolol succinate 100 mg 100 mg PO DAILY 06/15/20 08/19/20 History tablet,extended release 24 hr oxycodone-acetaminophen 5 mg-325 1 tab PO Q8H PRN 06/15/20 08/19/20 History mg tablet pantoprazole 20 mg tablet,delayed 20 mg PO DAILY 06/15/20 08/19/20 History release sertraline 50 mg tablet 50 mg PO DAILY 06/15/20 08/19/20 History primidone 50 mg PO BID 08/19/20 08/19/20 History <WANDA Ramos - Last Filed: 08/19/20 20:09> Physical Exam Vital Signs and Narrative: Vital Signs: Last Vital Signs Temp 98.6 F 08/19/20 18:00 Pulse 102 H 08/19/20 18:00 Resp 17 08/19/20 18:00 BP 127/52 L 08/19/20 18:00 Pulse Ox 98 08/19/20 18:00 Body Mass Index 32.9 <WANDA Ramos Last Filed: 08/19/20 20:09> Const: Other: This is a 69-year-old female appears in no acute distress. She is well developed and well nourished. She is alert and oriented to person place and time however does seem somewhat confused <WANDA Ramos Last Filed: 08/19/20 20:09> General: alert, awake and confusion <WANDA Ramos Last Filed: 08/19/20 20:09> Nutritional Appearance: well nourished <WANDA Ramos Last Filed: 08/19/20 20:09> Orientation/consciousness: patient oriented x3 and confusion <WANDA Ramos Last Filed: 08/19/20 20:09> HENMT: Head: Yes normocephalic and Yes atraumatic <WANDA Ramos - Last Filed: 08/19/20 20:09> Eyes: Sclerae: sclerae normal <WANDA Ramos - Last Filed: 08/19/20 20:09> Chest: Chest palpation & inspection: normal inspection of the chest <WANDA Ramos - Last Filed: 08/19/20 20:09> Resp: Effort & Inspection: normal respiratory effort and no respiratory distress <WANDA Ramos - Last Filed: 08/19/20 20:09> Auscultation: clear to auscultation bilaterally <WANDA Ramos - Last Filed: 08/19/20 20:09> Cardio: Rate: tachycardic <WANDA Ramos - Last Filed: 08/19/20 20:09> Rhythm: abnormal rhythm irregularly irregular <WANDA Ramos - Last Filed: 08/19/20 20:09> GI: Palpation (GI): Soft to palpation and nontender <WANDA Ramos - Last Filed: 08/19/20 20:09> Skin: General skin exam: no rashes or lesions noted <WANDA Ramos - Last Filed: 08/19/20 20:09> Neuro: General: patient oriented x3 and confusion <WANDA Ramos - Last Filed: 08/19/20 20:09> Cranial nerves: Yes CN's II-XII intact bilaterally and Yes Bilaterally intact EOM present <WANDA Ramos - Last Filed: 08/19/20 20:09> Extrem: General: Yes normal to inspection <WANDA Ramos - Last Filed: 08/19/20 20:09> Results Labs CBC and Chem 7: : 08/19/20 19:45 08/19/20 23:30 <WANDA Ramos - Last Filed: 08/19/20 20:09> Labs: Laboratory Results - last 24 hr 08/19/20 08/19/20 08/19/20 13:39 13:39 13:39 MCV 90.8 MCH 30.3 MCHC 33.4 RDW 13.2 Plt Count 518 H MPV 9.9 Immature Gran % (Auto) 0.3 Neut % (Auto) 71.9 Lymph % (Auto) 18.7 L [place] % (Auto) 7.5 Eos % (Auto) 1.4 Baso % (Auto) 0.2 Lymph # (Auto) 1.6 [place] # (Auto) 0.7 Eos # (Auto) 0.1 Baso # (Auto) 0.0 Abs Immat Gran (auto) 0.03 Absolute Neuts (auto) 6.2 Absolute Nucleated RBC 0.000 Nucleated RBC % (auto) 0.0 PT INR APTT D-Dimer Anion Gap 22 H Estim Creat Clear Calc 13.5 Estimated GFR 12 Random Glucose 124 H Lactic Acid Calcium 8.8 Magnesium Ferritin 850 H Total Bilirubin 0.5 AST 40 H ALT 75 H Alkaline Phosphatase 104 Lactate Dehydrogenase 247 H Troponin I High Sens 24.2 H C-Reactive Protein 5.10 H Total Protein 7.8 Albumin 4.2 Procalcitonin TSH 1.06 Urine Color Urine Appearance Urine pH Ur Specific Lewis Urine Protein Urine Glucose (UA) Urine Ketones Urine Blood Urine Nitrite Ur Leukocyte Esterase Urine RBC Urine WBC Ur Squamous Epith Cells Amorphous Sediment Urine Bacteria Coronavirus (PCR) Influenza Type A (PCR) Influenza Type B (PCR) RSV RNA Qual (PCR) 08/19/20 08/19/20 08/19/20 13:39 13:39 13:39 MCV MCH MCHC RDW Plt Count MPV Immature Gran % (Auto) Neut % (Auto) Lymph % (Auto) [place] % (Auto) Eos % (Auto) Baso % (Auto) Lymph # (Auto) [place] # (Auto) Eos # (Auto) Baso # (Auto) Abs Immat Gran (auto) Absolute Neuts (auto) Absolute Nucleated RBC Nucleated RBC % (auto) PT 16.6 H INR 1.4 H APTT 27.4 D-Dimer 3792 Anion Gap Estim Creat Clear Calc Estimated GFR Random Glucose Lactic Acid Calcium Magnesium 3.1 H Ferritin Total Bilirubin AST ALT Alkaline Phosphatase Lactate Dehydrogenase Troponin I High Sens C-Reactive Protein Total Protein Albumin Procalcitonin 0.28 TSH Urine Color Urine Appearance Urine pH Ur Specific Lewis Urine Protein Urine Glucose (UA) Urine Ketones Urine Blood Urine Nitrite Ur Leukocyte Esterase Urine RBC Urine WBC Ur Squamous Epith Cells Amorphous Sediment Urine Bacteria Coronavirus (PCR) Influenza Type A (PCR) Influenza Type B (PCR) RSV RNA Qual (PCR) 08/19/20 08/19/20 08/19/20 15:10 15:29 16:07 MCV MCH MCHC RDW Plt Count MPV Immature Gran % (Auto) Neut % (Auto) Lymph % (Auto) [place] % (Auto) Eos % (Auto) Baso % (Auto) Lymph # (Auto) [place] # (Auto) Eos # (Auto) Baso # (Auto) Abs Immat Gran (auto) Absolute Neuts (auto) Absolute Nucleated RBC Nucleated RBC % (auto) PT INR APTT D-Dimer Anion Gap Estim Creat Clear Calc Estimated GFR Random Glucose Lactic Acid 1.1 Calcium Magnesium Ferritin Total Bilirubin AST ALT Alkaline Phosphatase Lactate Dehydrogenase Troponin I High Sens C-Reactive Protein Total Protein Albumin Procalcitonin TSH Urine Color YELLOW Urine Appearance CLEAR Urine pH 5.0 Ur Specific Lewis 1.015 Urine Protein NEG Urine Glucose (UA) NEG Urine Ketones NEG Urine Blood NEG Urine Nitrite NEG Ur Leukocyte Esterase NEG Urine RBC 0-2 Urine WBC 0 Ur Squamous Epith Cells TRACE Amorphous Sediment 1+ Urine Bacteria NONE Coronavirus (PCR) POSITIVE A Influenza Type A (PCR) NEGATIVE Influenza Type B (PCR) NEGATIVE RSV RNA Qual (PCR) NEGATIVE 08/19/20 08/19/20 17:01 17:01 MCV MCH MCHC RDW Plt Count MPV Immature Gran % (Auto) Neut % (Auto) Lymph % (Auto) [place] % (Auto) Eos % (Auto) Baso % (Auto) Lymph # (Auto) [place] # (Auto) Eos # (Auto) Baso # (Auto) Abs Immat Gran (auto) Absolute Neuts (auto) Absolute Nucleated RBC Nucleated RBC % (auto) PT INR APTT D-Dimer Anion Gap 16 Estim Creat Clear Calc 20.7 Estimated GFR 19 Random Glucose 95 Lactic Acid Calcium 6.3 L D Magnesium Ferritin Total Bilirubin AST ALT Alkaline Phosphatase Lactate Dehydrogenase Troponin I High Sens 25.0 H C-Reactive Protein Total Protein Albumin Procalcitonin TSH Urine Color Urine Appearance Urine pH Ur Specific Lewis Urine Protein Urine Glucose (UA) Urine Ketones Urine Blood Urine Nitrite Ur Leukocyte Esterase Urine RBC Urine WBC Ur Squamous Epith Cells Amorphous Sediment Urine Bacteria Coronavirus (PCR) Influenza Type A (PCR) Influenza Type B (PCR) RSV RNA Qual (PCR) <WANDA Ramos - Last Filed: 08/19/20 20:09> Imaging Radiologist's Impressions: Impressions Chest X-Ray 08/19/20 13:25 IMPRESSION: Bilateral airspace disease probably representing pneumonia. Abdomen/Pelvis CT 08/19/20 14:41 IMPRESSION: Findings the lung bases suggestive of COVID pneumonia. Cholelithiasis without cholecystitis. Tiny hepatic granuloma. Degenerative and postoperative changes in the spine. Pulmonary Perfusion Imaging 08/19/20 14:41 IMPRESSION: 1. Very low probability radionuclide lung perfusion scan. <WANDA Ramos - Last Filed: 08/19/20 20:09> Assessment and Plan (1) Acute kidney injury superimposed on CKD: Status: Acute <WANDA Ramos - Last Filed: 08/19/20 20:09> (2) Pneumonia due to COVID-19 virus: Status: Acute <WANDA Ramos - Last Filed: 08/19/20 20:09> (3) Atrial fibrillation with RVR: Status: Acute <WANDA Ramos - Last Filed: 08/19/20 20:09> (4) Hypokalemia: Status: Acute <WANDA Ramos - Last Filed: 08/19/20 20:09> (5) Metabolic acidosis: Status: Acute <WANDA Ramos - Last Filed: 08/19/20 20:09> (6) Prolonged QT interval: Status: Acute <WANDA Ramos - Last Filed: 08/19/20 20:09> This is a 69-year-old female with a history of CKD, hypertension, dyslipidemia, stroke, trauma, breast cancer who presents to the emergency department with GI symptoms found to have multiple abnormalities including CHEO, COVID pneumonia, atrial fibrillation with rapid ventricular response COVID-19 pneumonia CRP, LDH, ferritin elevated Chest x-ray with bilateral airspace disease Not currently requiring supplemental oxygen CHEO and CKD 3.83, improved to 2.5 after IV fluid. Baseline 1.5-1.8 -IV fluid -avoid nephrotoxic medication (chlorthalidone, lisinopril on hold) -nephrology consult Metabolic acidosis Received normal saline in the ED. Bicarb dropped from 17 to 12 Nephrology has recommended 75 cc of LR x1 L -nephrology consult -follow bmp Atrial fibrillation with rapid ventricular response TSH within normal limits. Chads Vasc score 3 trops flat - likely r/t demand -continue Cardizem drip -continue heparin drip for anticoagulation -echocardiogram -cardiology consult -continue home metoprolol Hypokalemia -replace and follow repeat BMP overnight Prolonged QT -hold SSRI Replace potassium Magnesium within normal limits Repeat EKG in a.m. Cardiology consult Hypertension Blood pressure controlled Continue hydralazine metoprolol -hold Norvasc while on Cardizem drip -hold chlorthalidone, lisinopril in setting of CHEO Diarrhea Stool studies ordered No pathology on abdominal CT Mood Hold sertraline for prolonged QT Continue Ativan Breast cancer Continue anastrozole Tremor Continue primidone DVT prophylaxis-heparin This case was discussed with Dr. Lantigua <WANDA Ramos - Last Filed: 08/19/20 20:09>
[2020-08-19 20:00] LABS: OBS Int Ctl Valid YES; OBS1 NEG (NEG)
[2020-08-19 20:00] LABS: INTERNATIONAL NORM RATIO 1.6 (0.9-1.1); Prothrombin Time 18.5 SEC (10.8-13.0)
[2020-08-19 20:02] LABS: PTT Heparin Drip 74.2 SEC (53-77.9)
[2020-08-19] MEDS: Lactated Ringers 1,000 ML 75 ML IVCONT (20:09)
[2020-08-19] MEDS: Potassium Chloride/H20 10 MEQ/100 ML PIGGYBACK 100 MEQ IV ×2 (20:09→21:36)
[2020-08-19 20:29] LABS: CDIFF Ag Negative (Negative); CDIFF Internal ctrl Dots and bkg OK (V); CDiff Toxin Negative (Negative)
[2020-08-19 20:36] LABS: Leukocytes Stool Qualitative NEGATIVE (NEGATIVE)
[2020-08-19] MEDS: Heparin Sodium,Porcine/1/2NS 25,000 UNIT/250 ML IV.SOLN 9.8 UNIT IVCONT (21:33)
[2020-08-19] MEDS: hydrALAZINE HCl 50 MG TABLET PO (22:53)
[2020-08-19] MEDS: Atorvastatin Calcium 80 MG TABLET PO (22:53)
[2020-08-19] MEDS: Potassium Chloride ER 20 MEQ TAB.ER.PRT PO (22:53)
[2020-08-19] MEDS: Primidone 50 MG TABLET PO (22:53)
--- NOTE | 2020-08-19 23:43 | PM.EVENT ---
Event Note Date of Service: 08/20/20 Event Note: Admission note: 69 y/o female with an extended PMHx who presented from home due to abdominal pain associated with nausea, vomiting and diarrhea. To be admitted due to New onset afib with rvr requiring IV cardizem drip and full dose Anticoagulation, Covid 19+, CHEO and electrolyte abnormalities. ROS and PE as H and P otherwise unremarkable. PMHX: Anemia Breast cancer CKD (chronic kidney disease) Hyperlipidemia Hypertension Stroke Tremor underlying psychiatric disorder PSx: History of appendectomy History of right mastectomy (~2015) History of spinal fusion Toxic habits: unknown Assessment/Plan: 1- New onset afib Tele monitor Cardizem drip Continue with full dose anticoagulation follow up 2D echo in the am Cardiology consult in the am 2- Prolonged QT likely due to electrolyte abnormalities Hypokalemia corrected. Mag WNL. Calcium levels corrected Repeat EKG in the am 3- CHEO likely secondary to dehydration Monitor renal function closely Per nephrology patient is to be on LR at a low rate Follow up BMP in the am and monitor renal function closely Nephrology consult in the am Rest of the assessment and Plan as discussed with WANDA Lawrence per H and P
[2020-08-20] VITALS (7 sets, daily range): BP systolic 121–167; BP diastolic 74–91; PULSE 79–122; RESP 18–20; TEMP 36.2–37; O2SAT 98–100; BMI 32.9
[2020-08-20] MEDS: Potassium Chloride/H20 10 MEQ/100 ML PIGGYBACK 100 MEQ IV (00:14)
[2020-08-20 00:15] LABS: Anion Gap 18 (12-20); Calcium 8.6 mg/dL (8.4-10.2); Carbon Dioxide 17 mmol/L (22-29); Chloride 112 mmol/L (96-108); Creatinine Clr Calc Pharmacy 18.6; Estimated Glomerular Filt Rate 17; Glucose Random 128 mg/dL (60-115); Potassium 4.4 mmol/l (3.3-5.1); Sodium 143 mmol/L (135-145)
[2020-08-20 00:29] LABS: Blood Urea Nitrogen 139 mg/dL (9-16)
[2020-08-20] MEDS: dilTIAZem HCL 125 MG in 0.9 % Sodium Chloride 100 ML IVCONT (02:31)
[2020-08-20 03:55] LABS: PTT Heparin Drip 64.3 SEC (53-77.9)
--- NOTE | 2020-08-20 05:00 | ECG_ITS ---
Test Reason : prolonged qt Blood Pressure : / mmHG Vent. Rate : 109 BPM Atrial Rate : 357 BPM P-R Int : 000 ms QRS Dur : 082 ms QT Int : 352 ms P-R-T Axes : 000 021 125 degrees QTc Int : 474 ms Atrial fibrillation with RVR Nonspecific ST and T wave abnormality Abnormal ECG When compared with ECG of 19-AUG-2020 13:29, No significant changes seen Referred By: Iwona Boswell Electronically Signed By:Vishnu Mtz
[2020-08-20 06:55] LABS: MANUAL DIFF FLAG NO
[2020-08-20 06:59] LABS: Basophils Percent Auto 0.4 % (0-2); Eosinophils Absolute Auto 0.1 X10*3/uL (0.0-0.4); Eosinophils Percent Auto 1.3 % (0-4); Hematocrit 27.8 % (37-47); Hemoglobin 9.2 g/dl (12.0-16.0); Imm Gran Abs Auto 0.04 X10*3/uL (0.00-0.03); Imm Gran Pct Auto 0.5 % (0.0-0.4); Lymphocytes Absolute Auto 1.5 X10*3/uL (1.2-4.9); Lymphocytes Percent Auto 17.3 % (20-40); Mean Corpuscular HGB Conc 33.1 g/dl (31.0-35.0); Mean Corpuscular Hemoglobin 30.2 pg (27.0-33.0); Mean Corpuscular Volume 91.1 fL (80-98); Mean Platelet Volume 9.7 fL (9.4-12.3); Monocytes Absolute Auto 0.7 X10*3/uL (0.1-1.2); Monocytes Percent Auto 8.3 % (2-11); Neutrophils Absolute Auto 6.2 X10*3/uL (2.0-8.3); Neutrophils Percent Auto 72.2 % (45-73); Platelet Count 514 X10*3/uL (160-400); Red Blood Count 3.05 X10*6/uL (4.20-5.50); Red Cell Distribution Width 13.2 % (11.0-16.0); White Blood Count 8.6 X10*3/uL (4.8-10.8)
[2020-08-20 07:05] LABS: INTERNATIONAL NORM RATIO 1.5 (0.9-1.1); Prothrombin Time 17.6 SEC (10.8-13.0)
--- NOTE | 2020-08-20 07:35 | PC.NURSE ---
Patient had two, 3 beats of vtach. Pt assessed, asymptomatic. Dr Grzegorz Mac notified via [employer]. No new orders at this time. Will continue to monitor.
[2020-08-20 07:37] LABS: Anion Gap 21 (12-20); Calcium 8.7 mg/dL (8.4-10.2); Carbon Dioxide 14 mmol/L (22-29); Chloride 114 mmol/L (96-108); Creatinine Clr Calc Pharmacy 22.5; Estimated Glomerular Filt Rate 21; Glucose Random 109 mg/dL (60-115); Potassium 4.3 mmol/l (3.3-5.1); Sodium 145 mmol/L (135-145)
[2020-08-20 07:48] LABS: Blood Urea Nitrogen 125 mg/dL (9-16)
--- NOTE | 2020-08-20 09:18 | MHC.CM.PN ---
IMM 08/20/2020 FEMALE 69 LIVES ALONE. A new HCP document created, and placed on chart.She has a [employer]ACH[employer] TENDER thru [facility]. [facility] is in place. A referral was sent requesting services resume at [place]. DP is to resume existing services [facility] and [facility]. Family will provide transportation.
[2020-08-20] MEDS: clonazePAM 1 MG TABLET PO (09:46)
[2020-08-20] MEDS: Metoprolol Succinate ER 100 MG TAB.ER.24H PO (09:47)
[2020-08-20] MEDS: Primidone 50 MG TABLET PO ×2 (09:48→21:35)
[2020-08-20] MEDS: hydrALAZINE HCl 50 MG TABLET PO ×2 (09:48→21:27)
[2020-08-20] MEDS: Clopidogrel Bisulfate 75 MG TABLET PO (09:48)
[2020-08-20] MEDS: Omeprazole 20 MG CAPSULE.DR PO (09:48)
[2020-08-20] MEDS: Anastrozole 1 MG TABLET PO (09:48)
[2020-08-20] MEDS: 0.9 % Sodium Chloride Flush 3 ML SYRINGE IVFLUSH ×2 (09:49→18:06)
--- NOTE | 2020-08-20 10:00 | CA_ITS ---
Transthoracic Echocardiogram Patient (Last, First, Middle): Debora Caicedo, Gender: Female Date of : 1950 Age: 69 Procedure Date: 08/20/2020 Procedure Type: Transthoracic Echocardiogram [place] [facility] [place]: 157.48 cm Weight: 81.65 kg BSA: 1.83 m2 Heart Rate: bpm BP: 121 / 77 mmHg Paint Tinter: Referring MD: Iwona MUÑOZ Symptoms: new afib Study Quality: Fair ECG Rhythm: Atrial Fibrillation Conclusions: - Normal left ventricular size and systolic function. - Diastolic function is indeterminate on the basis of available data. - Normal right ventricular cavity size and systolic function. - The left atrium is severely dilated. - There is mild aortic valve stenosis. - There is no evidence of pulmonary hypertension. - The inferior vena cava is normal in size and collapses greater than 50% with inspiration. Findings Left Ventricle Normal left ventricular size and systolic function. There is mildly increased left ventricular wall thickness. The visually estimated ejection fraction is between 55-60%. There is no evidence of regional wall motion abnormalities. Diastolic function is indeterminate on the basis of available data. Right Ventricle Normal right ventricular cavity size and systolic function. Atria The left atrium is severely dilated. Interatrial shunt cannot be excluded by color Doppler. Aortic Valve There is a normal trileaflet aortic valve. There is mild calcification of the aortic valve. There is mild aortic valve stenosis. There is no aortic valve regurgitation. Mitral Valve The mitral valve appears normal. There is trace mitral valve regurgitation. There is no mitral valve stenosis. Pulmonic Valve The pulmonic valve is likely normal. Tricuspid Valve Normal tricuspid valve structure. There is trace tricuspid valve regurgitation. Normal right atrial pressure. There is no evidence of pulmonary hypertension. Great Vessels The pulmonary artery was not well visualized. Venous The inferior vena cava is normal in size and collapses greater than 50% with inspiration. Pericardium/Pleural There is no evidence of pericardial effusion. Prior Study Comparison No significant change compared to prior study dated: 08/07/2001. Measurements 2D Linear Measurements IVSd: 1.11 0.6-0.9/0.6-1.0 cm LVIDd: 3.74 3.9-5.3/4.2-5.9 cm LVIDd Index: 2.04 2.4-3.2/2.2-3.1 cm/m2 LVIDs: 2.43 2.0-3.6 cm LVPWd: 0.97 0.7-1.1 cm LA Diam: 3.80 2.7-3.8/3.0-4.0 cm LAIDs Index: 2.08 1.5-2.3 cm/m2 LV Mass: 150.93 67-162/88-224 g LV Mass Index: 82.48 43-95/49-115 g/m2 LVOT Diam: 2.00 3.0+(-)1.3 cm Mitral Valve MV Pk E: 0.97 MV Decel Time: 190.00 E'Lateral: 15.80 E'Medial: 11.90 E/E' Med: 8.10 E/E' Lat: 6.10 PHT: 56.00 MVA PHT: 3.93 Decel [place]: 5.08 Aortic Valve AoV Pk Damian: 2.38 AoV Mn Damian: 1.51 AoV VTI: 0.41 AoV Pk Grad: 23.00 Aov Mn Grad: 11.00 PETROS Cont.VTI: 1.66 LVOT LVOT Pk Damian: 1.12 LVOT Mn Damian: 0.70 LVOT VTI: 0.22 LVOT Pk Grad: 5.00 LVOT Mn Grad: 2.00 LVOT Diam: 2.00 LVOT Area: 3.14 Diastolic Function MV Pk E: 0.97 E'Medial: 11.90 E/E' Med: 8.10 E' Laterial: 15.80 E/E' Lat: 6.10 Tricuspid Valve TR Pk Damian: 2.36 TR Pk Grad: 22.00 RA Press: 3.00 RVSP: 25.00 Pulmonary Valve PV Pk Damian: 1.22 Peak PV Grad: 6.00 Updated in Other Vendor System with Status of Final Vishnu Mtz MD electronically signed on 08/20/2020 12:07:45 PM with status of Final
[2020-08-20 10:11] LABS: PTT Heparin Drip 74.9 SEC (53-77.9)
--- NOTE | 2020-08-20 10:30 | PM.PNNEP ---
Subjective Subjective Date of Service: 09/03/20 Physical Exam Vital Signs: Vital Signs: Last Vital Signs Temp 98.3 F 08/20/20 02:50 Pulse 122 H 08/20/20 09:47 Resp 18 08/20/20 02:50 BP 121/77 08/20/20 09:48 Pulse Ox 99 08/20/20 02:50 Body Mass Index 32.9 Objective Data Labs CBC & Chem 7: 08/23/20 12:20 08/23/20 05:11 Labs: Laboratory Results - last 24 hr 08/19/20 08/19/20 08/19/20 13:39 13:39 13:39 WBC 8.7 RBC 3.46 L Hgb 10.5 L Hct 31.4 L MCV 90.8 MCH 30.3 MCHC 33.4 RDW 13.2 Plt Count 518 H MPV 9.9 Immature Gran % (Auto) 0.3 Neut % (Auto) 71.9 Lymph % (Auto) 18.7 L [place] % (Auto) 7.5 Eos % (Auto) 1.4 Baso % (Auto) 0.2 Lymph # (Auto) 1.6 [place] # (Auto) 0.7 Eos # (Auto) 0.1 Baso # (Auto) 0.0 Abs Immat Gran (auto) 0.03 Absolute Neuts (auto) 6.2 Absolute Nucleated RBC 0.000 Nucleated RBC % (auto) 0.0 PT INR APTT PTT (Heparin Protocol) D-Dimer Sodium 139 Potassium 3.8 Chloride 104 Carbon Dioxide 17 L Anion Gap 22 H BUN 170 H* Creatinine 3.83 H Estim Creat Clear Calc 13.5 Estimated GFR 12 Random Glucose 124 H Lactic Acid Calcium 8.8 Magnesium Ferritin 850 H Total Bilirubin 0.5 AST 40 H ALT 75 H Alkaline Phosphatase 104 Lactate Dehydrogenase 247 H Troponin I High Sens 24.2 H C-Reactive Protein 5.10 H Total Protein 7.8 Albumin 4.2 Procalcitonin TSH 1.06 Urine Color Urine Appearance Urine pH Ur Specific [place] Urine Protein Urine Glucose (UA) Urine Ketones Urine Blood Urine Nitrite Ur Leukocyte Esterase Urine RBC Urine WBC Ur Squamous Epith Cells Amorphous Sediment Urine Bacteria Stool Occult Blood Stool Leukocytes, Qual C. difficile Toxin A&B C. difficile Antigen C. difficile Interpret Coronavirus (PCR) Influenza Type A (PCR) Influenza Type B (PCR) RSV RNA Qual (PCR) 08/19/20 08/19/20 08/19/20 13:39 13:39 13:39 WBC RBC Hgb Hct MCV MCH MCHC RDW Plt Count MPV Immature Gran % (Auto) Neut % (Auto) Lymph % (Auto) [place] % (Auto) Eos % (Auto) Baso % (Auto) Lymph # (Auto) [place] # (Auto) Eos # (Auto) Baso # (Auto) Abs Immat Gran (auto) Absolute Neuts (auto) Absolute Nucleated RBC Nucleated RBC % (auto) PT 16.6 H INR 1.4 H APTT 27.4 PTT (Heparin Protocol) D-Dimer 3792 Sodium Potassium Chloride Carbon Dioxide Anion Gap BUN Creatinine Estim Creat Clear Calc Estimated GFR Random Glucose Lactic Acid Calcium Magnesium 3.1 H Ferritin Total Bilirubin AST ALT Alkaline Phosphatase Lactate Dehydrogenase Troponin I High Sens C-Reactive Protein Total Protein Albumin Procalcitonin 0.28 TSH Urine Color Urine Appearance Urine pH Ur Specific [place] Urine Protein Urine Glucose (UA) Urine Ketones Urine Blood Urine Nitrite Ur Leukocyte Esterase Urine RBC Urine WBC Ur Squamous Epith Cells Amorphous Sediment Urine Bacteria Stool Occult Blood Stool Leukocytes, Qual C. difficile Toxin A&B C. difficile Antigen C. difficile Interpret Coronavirus (PCR) Influenza Type A (PCR) Influenza Type B (PCR) RSV RNA Qual (PCR) 08/19/20 08/19/20 08/19/20 15:10 15:29 16:07 WBC RBC Hgb Hct MCV MCH MCHC RDW Plt Count MPV Immature Gran % (Auto) Neut % (Auto) Lymph % (Auto) [place] % (Auto) Eos % (Auto) Baso % (Auto) Lymph # (Auto) [place] # (Auto) Eos # (Auto) Baso # (Auto) Abs Immat Gran (auto) Absolute Neuts (auto) Absolute Nucleated RBC Nucleated RBC % (auto) PT INR APTT PTT (Heparin Protocol) D-Dimer Sodium Potassium Chloride Carbon Dioxide Anion Gap BUN Creatinine Estim Creat Clear Calc Estimated GFR Random Glucose Lactic Acid 1.1 Calcium Magnesium Ferritin Total Bilirubin AST ALT Alkaline Phosphatase Lactate Dehydrogenase Troponin I High Sens C-Reactive Protein Total Protein Albumin Procalcitonin TSH Urine Color YELLOW Urine Appearance CLEAR Urine pH 5.0 Ur Specific [place] 1.015 Urine Protein NEG Urine Glucose (UA) NEG Urine Ketones NEG Urine Blood NEG Urine Nitrite NEG Ur Leukocyte Esterase NEG Urine RBC 0-2 Urine WBC 0 Ur Squamous Epith Cells TRACE Amorphous Sediment 1+ Urine Bacteria NONE Stool Occult Blood Stool Leukocytes, Qual C. difficile Toxin A&B C. difficile Antigen C. difficile Interpret Coronavirus (PCR) POSITIVE A Influenza Type A (PCR) NEGATIVE Influenza Type B (PCR) NEGATIVE RSV RNA Qual (PCR) NEGATIVE 08/19/20 08/19/20 08/19/20 17:01 17:01 19:41 WBC RBC Hgb Hct MCV MCH MCHC RDW Plt Count MPV Immature Gran % (Auto) Neut % (Auto) Lymph % (Auto) [place] % (Auto) Eos % (Auto) Baso % (Auto) Lymph # (Auto) [place] # (Auto) Eos # (Auto) Baso # (Auto) Abs Immat Gran (auto) Absolute Neuts (auto) Absolute Nucleated RBC Nucleated RBC % (auto) PT INR APTT PTT (Heparin Protocol) D-Dimer Sodium 142 Potassium 2.9 L D Chloride 117 H Carbon Dioxide 12 L Anion Gap 16 BUN 126 H* D Creatinine 2.50 H Estim Creat Clear Calc 20.7 Estimated GFR 19 Random Glucose 95 Lactic Acid Calcium 6.3 L D Magnesium Ferritin Total Bilirubin AST ALT Alkaline Phosphatase Lactate Dehydrogenase Troponin I High Sens 25.0 H C-Reactive Protein Total Protein Albumin Procalcitonin TSH Urine Color Urine Appearance Urine pH Ur Specific [place] Urine Protein Urine Glucose (UA) Urine Ketones Urine Blood Urine Nitrite Ur Leukocyte Esterase Urine RBC Urine WBC Ur Squamous Epith Cells Amorphous Sediment Urine Bacteria Stool Occult Blood NEG Stool Leukocytes, Qual C. difficile Toxin A&B C. difficile Antigen C. difficile Interpret Coronavirus (PCR) Influenza Type A (PCR) Influenza Type B (PCR) RSV RNA Qual (PCR) 08/19/20 08/19/20 08/19/20 19:41 19:41 19:45 WBC 8.4 RBC 3.19 L Hgb 9.6 L Hct 29.2 L MCV 91.5 MCH 30.1 MCHC 32.9 RDW 13.1 Plt Count 526 H MPV 9.7 Immature Gran % (Auto) Neut % (Auto) Lymph % (Auto) [place] % (Auto) Eos % (Auto) Baso % (Auto) Lymph # (Auto) [place] # (Auto) Eos # (Auto) Baso # (Auto) Abs Immat Gran (auto) Absolute Neuts (auto) Absolute Nucleated RBC 0.000 Nucleated RBC % (auto) 0.0 PT INR APTT PTT (Heparin Protocol) D-Dimer Sodium Potassium Chloride Carbon Dioxide Anion Gap BUN Creatinine Estim Creat Clear Calc Estimated GFR Random Glucose Lactic Acid Calcium Magnesium Ferritin Total Bilirubin AST ALT Alkaline Phosphatase Lactate Dehydrogenase Troponin I High Sens C-Reactive Protein Total Protein Albumin Procalcitonin TSH Urine Color Urine Appearance Urine pH Ur Specific [place] Urine Protein Urine Glucose (UA) Urine Ketones Urine Blood Urine Nitrite Ur Leukocyte Esterase Urine RBC Urine WBC Ur Squamous Epith Cells Amorphous Sediment Urine Bacteria Stool Occult Blood Stool Leukocytes, Qual NEGATIVE C. difficile Toxin A&B Negative C. difficile Antigen Negative C. difficile Interpret SEE NOTE Coronavirus (PCR) Influenza Type A (PCR) Influenza Type B (PCR) RSV RNA Qual (PCR) 08/19/20 08/19/20 08/20/20 19:45 23:30 03:29 WBC RBC Hgb Hct MCV MCH MCHC RDW Plt Count MPV Immature Gran % (Auto) Neut % (Auto) Lymph % (Auto) [place] % (Auto) Eos % (Auto) Baso % (Auto) Lymph # (Auto) [place] # (Auto) Eos # (Auto) Baso # (Auto) Abs Immat Gran (auto) Absolute Neuts (auto) Absolute Nucleated RBC Nucleated RBC % (auto) PT 18.5 H INR 1.6 H APTT PTT (Heparin Protocol) 74.2 64.3 D-Dimer Sodium 143 Potassium 4.4 D Chloride 112 H Carbon Dioxide 17 L Anion Gap 18 BUN 139 H* Creatinine 2.78 H Estim Creat Clear Calc 18.6 Estimated GFR 17 Random Glucose 128 H Lactic Acid Calcium 8.6 D Magnesium Ferritin Total Bilirubin AST ALT Alkaline Phosphatase Lactate Dehydrogenase Troponin I High Sens C-Reactive Protein Total Protein Albumin Procalcitonin TSH Urine Color Urine Appearance Urine pH Ur Specific [place] Urine Protein Urine Glucose (UA) Urine Ketones Urine Blood Urine Nitrite Ur Leukocyte Esterase Urine RBC Urine WBC Ur Squamous Epith Cells Amorphous Sediment Urine Bacteria Stool Occult Blood Stool Leukocytes, Qual C. difficile Toxin A&B C. difficile Antigen C. difficile Interpret Coronavirus (PCR) Influenza Type A (PCR) Influenza Type B (PCR) RSV RNA Qual (PCR) 08/20/20 08/20/20 08/20/20 06:34 06:34 06:34 WBC 8.6 RBC 3.05 L Hgb 9.2 L Hct 27.8 L MCV 91.1 MCH 30.2 MCHC 33.1 RDW 13.2 Plt Count 514 H MPV 9.7 Immature Gran % (Auto) 0.5 H Neut % (Auto) 72.2 Lymph % (Auto) 17.3 L [place] % (Auto) 8.3 Eos % (Auto) 1.3 Baso % (Auto) 0.4 Lymph # (Auto) 1.5 [place] # (Auto) 0.7 Eos # (Auto) 0.1 Baso # (Auto) 0.0 Abs Immat Gran (auto) 0.04 H Absolute Neuts (auto) 6.2 Absolute Nucleated RBC 0.000 Nucleated RBC % (auto) 0.0 PT 17.6 H INR 1.5 H APTT PTT (Heparin Protocol) D-Dimer Sodium 145 Potassium 4.3 Chloride 114 H Carbon Dioxide 14 L Anion Gap 21 H BUN 125 H* Creatinine 2.30 H Estim Creat Clear Calc 22.5 Estimated GFR 21 Random Glucose 109 Lactic Acid Calcium 8.7 Magnesium Ferritin Total Bilirubin AST ALT Alkaline Phosphatase Lactate Dehydrogenase Troponin I High Sens C-Reactive Protein Total Protein Albumin Procalcitonin TSH Urine Color Urine Appearance Urine pH Ur Specific [place] Urine Protein Urine Glucose (UA) Urine Ketones Urine Blood Urine Nitrite Ur Leukocyte Esterase Urine RBC Urine WBC Ur Squamous Epith Cells Amorphous Sediment Urine Bacteria Stool Occult Blood Stool Leukocytes, Qual C. difficile Toxin A&B C. difficile Antigen C. difficile Interpret Coronavirus (PCR) Influenza Type A (PCR) Influenza Type B (PCR) RSV RNA Qual (PCR) 08/20/20 09:41 WBC RBC Hgb Hct MCV MCH MCHC RDW Plt Count MPV Immature Gran % (Auto) Neut % (Auto) Lymph % (Auto) [place] % (Auto) Eos % (Auto) Baso % (Auto) Lymph # (Auto) [place] # (Auto) Eos # (Auto) Baso # (Auto) Abs Immat Gran (auto) Absolute Neuts (auto) Absolute Nucleated RBC Nucleated RBC % (auto) PT INR APTT PTT (Heparin Protocol) 74.9 D-Dimer Sodium Potassium Chloride Carbon Dioxide Anion Gap BUN Creatinine Estim Creat Clear Calc Estimated GFR Random Glucose Lactic Acid Calcium Magnesium Ferritin Total Bilirubin AST ALT Alkaline Phosphatase Lactate Dehydrogenase Troponin I High Sens C-Reactive Protein Total Protein Albumin Procalcitonin TSH Urine Color Urine Appearance Urine pH Ur Specific [place] Urine Protein Urine Glucose (UA) Urine Ketones Urine Blood Urine Nitrite Ur Leukocyte Esterase Urine RBC Urine WBC Ur Squamous Epith Cells Amorphous Sediment Urine Bacteria Stool Occult Blood Stool Leukocytes, Qual C. difficile Toxin A&B C. difficile Antigen C. difficile Interpret Coronavirus (PCR) Influenza Type A (PCR) Influenza Type B (PCR) RSV RNA Qual (PCR) Microbiology Microbiology Results: Microbiology 08/19/20 19:41 Stool Stool Culture - Preliminary Culture in progress. Assessment & Plan Assessment and plan (1) Acute kidney injury superimposed on CKD: Status: Acute (2) CKD (chronic kidney disease) stage 3, GFR 30-59 ml/min: Status: Acute Time Spent With Patient Time: Total time spent is greater than 50% in coordination of care (as documented) at patient's floor/unit and/or counseling patient:
--- NOTE | 2020-08-20 13:52 | CONS_ITS ---
DATE OF SERVICE: 08/20/2020 REASON FOR CONSULTATION: I was called to see this patient to assist in the management of acute kidney injury. HISTORY OF PRESENT ILLNESS: To summarize, Debora is known to us. She sees my associate, Dr. Clark in the outpatient setting. She has longstanding hypertension and NSAID use with chronic kidney disease and baseline creatinine around 1.8 mg/dL. She was admitted to [facility] on the with abdominal pain, nausea, vomiting, and diarrhea. She ruled in for COVID-19 infection. She has superimposed acute kidney injury with a BUN and creatinine of 170 and 3.83 on admission. With hydration, the BUN is trending down to 125 and the creatinine has dropped down to 2.3. She continues to have hyperchloremic metabolic acidosis, hence this consultation. PAST MEDICAL HISTORY: Ongoing medical problems include history of stage 3 chronic kidney disease, anemia, hypertension, history of breast cancer, stroke and tremor. FAMILY HISTORY: Mother had pancreatic cancer. PAST SURGICAL HISTORY: Includes appendicectomy, right mastectomy, and spinal fusion. SOCIAL HISTORY: No history of smoking, alcohol abuse, or any drug abuse. ALLERGIES: SHE IS ALLERGIC TO ASPIRIN. MEDICATIONS: At the time of admission included amlodipine 10 mg, anastrozole, atorvastatin, chlorthalidone 50 mg, clonazepam, Plavix, hydralazine, lisinopril 40 mg, loratadine, pantoprazole, sertraline, primidone. REVIEW OF SYSTEMS: Positive for shortness of breath. She had nausea, vomiting, and diarrhea with abdominal pain. She did have some fever. All other systems were reviewed as per history and physical. PHYSICAL EXAMINATION: GENERAL: Debora is an elderly woman. She appears ill, not in any distress. NECK: Supple. No JVD. EXTREMITIES: With trace edema. LUNGS: Bilateral scattered rhonchi. HEART: S1, S2 heard without gallop. VITAL SIGNS: Blood pressure was 121/77. LABORATORY DATA: Sodium 142, potassium 4.3, BUN 125, creatinine 2.3. Serum potassium was 2.9 yesterday. IMPRESSION: A 69-year-old woman with acute kidney injury, superimposed on chronic kidney disease. Acute kidney injury is most likely due to hypoperfusion from the combination of volume depletion due to the use of chlorthalidone and she also has severe hypokalemia due to potassium losses due to chlorthalidone. RECOMMENDATIONS: My recommendation will be to hold the diuretics, hold JOHN inhibitor. I agree with cautious hydration. Keep intake more than the output and avoid hypotension. She has mild acidosis. We will add oral sodium bicarbonate. There is no obstructive indication for dialysis at this time. We will follow her closely with the team. Kash Boggs MD BPA/MODL / [id number]
--- NOTE | 2020-08-20 17:10 | HO.PM.IMPN ---
Subjective Subjective Date of Service: 08/20/20 Interval History: seen and examined no complaints want to go home reportedly having hallucinations ROS unreliable Physical Exam Vital Signs: Vital Signs: Last Vital Signs Temp 97.3 F 08/20/20 12:00 Pulse 79 08/20/20 12:00 Resp 18 08/20/20 12:00 BP 167/77 H 08/20/20 12:00 Pulse Ox 99 08/20/20 12:00 Body Mass Index 32.9 General - no acute distress, appears comfortable Cardiovascular - IRR Lungs - normal respiratory effort, clear to auscultation bilaterally, no wheezingdim Abd - soft, nontender, no rebound or guarding Extremities - no edema bilaterally Neuro - awake and alert, no focal deficits Objective Data Current Medications Generic Name Dose Route Start Last Admin Trade Name Freq PRN Reason Stop Dose Admin Acetaminophen 650 mg 08/19/20 21:40 Acetaminophen 325 Mg Tablet PO Q6H PRN Pain, Mild (Pain Scale 1-3) Anastrozole 1 mg 08/20/20 09:00 08/20/20 09:48 Anastrozole 1 Mg Tablet PO 1 mg DAILY [place] Administration Atorvastatin Calcium 80 mg 08/19/20 21:40 08/19/20 22:53 Atorvastatin Calcium 80 Mg Tablet PO 80 mg BEDTIME [place] Administration Clonazepam 1 mg 08/20/20 09:00 08/20/20 09:46 Clonazepam 1 Mg Tablet PO 1 mg DAILY [place] Administration Clopidogrel Bisulfate 75 mg 08/20/20 09:00 08/20/20 09:48 Clopidogrel Bisulfate 75 Mg Tablet PO 75 mg DAILY [place] Administration Docusate Sodium 100 mg 08/19/20 21:40 Docusate Sodium 100 Mg Capsule PO DAILY PRN Constipation Heparin Sodium (Porcine) 5,000 unit 08/19/20 17:37 Heparin Sodium,Porcine 5,000 Unit/Ml Vial IVPUSH BOLUS PRN 80 unit/kg - Heparin Protocol Heparin Sodium (Porcine) 3,265.88 unit 08/19/20 17:54 Heparin Sodium,Porcine 5,000 Unit/Ml Vial 40 unit/kg (3265.88 unit) IVPUSH BOLUS PRN 40 unit/kg - Heparin Protocol Hydralazine HCl 50 mg 08/19/20 21:40 08/20/20 09:48 Hydralazine Hcl 50 Mg Tablet PO 50 mg BID [place] Administration Protocol Heparin Sodium/Sodium Chloride 25,000 unit in 250 mls @ 0 mls/hr 08/19/20 17:45 08/20/20 04:09 IVCONT 12 units/kg/hr .Q0M [place] 9.8 mls/hr Titration Protocol Per Protocol Diltiazem HCl 125 mg/ Sodium 125 mls @ 0 mls/hr 08/20/20 02:15 08/20/20 02:31 Chloride IVCONT 5 mg/hr .Q0M [place] 5 mls/hr Administration Protocol Per Protocol Metoprolol Succinate 100 mg 08/20/20 09:00 08/20/20 09:47 Metoprolol Succinate Er 100 Mg Tab.Er.24h PO 100 mg DAILY [place] Administration Protocol Omeprazole 20 mg 08/20/20 09:00 08/20/20 09:48 Omeprazole 20 Mg Capsule.Dr PO 20 mg DAILY [facility] Administration Pharmacy Consult 1 each 08/19/20 14:42 Consult Rx Perform Med Rec MISCELLANE ONCE PRN Consult order Primidone 50 mg 08/19/20 21:40 08/20/20 09:48 Primidone 50 Mg Tablet PO 50 mg BID [place] Administration Sodium Chloride 3 ml 08/20/20 00:00 08/20/20 09:49 0.9 % Sodium Chloride Flush 3 Ml Syringe IVFLUSH 3 ml QSHIFT [place] Administration Labs CBC & Chem 7: 08/20/20 06:34 08/20/20 06:34 Microbiology Microbiology Results: Microbiology 08/19/20 19:41 Stool Stool Culture - Preliminary Culture in progress. Assessment and Plan (1) Acute kidney injury superimposed on CKD: Status: Acute (2) Pneumonia due to COVID-19 virus: Status: Acute (3) Atrial fibrillation with RVR: Status: Acute (4) Hypokalemia: Status: Acute (5) Metabolic acidosis: Status: Acute (6) Prolonged QT interval: Status: Acute Assessment and Plan: This is a 69-year-old female with a history of CKD, hypertension, dyslipidemia, stroke, trauma, breast cancer who presents to the emergency department with GI symptoms found to have multiple abnormalities including CHEO, COVID pneumonia, atrial fibrillation with rapid ventricular response 1. COVID-19 pneumonia no hypoxia monitor 2. CHEO and CKD, metabolic acidosis improving start po bicarb 3. Atrial fibrillation with rapid ventricular response cardizem gtt, try to transition to PO once HR controlled Metoprolol heparin gtt 4. Hypokalemia improved 5. Prolonged QT due to lytes, improved 6. Hypertension metoprolol, hydralazine 7. Diarrhea Stool studies ordered No pathology on abdominal CT 8. Mood restart sertraline Continue Ativan 9. Breast cancer Continue anastrozole 10. Tremor Continue primidone DVT prophylaxis-heparin
[2020-08-20] MEDS: Heparin Sodium,Porcine/1/2NS 25,000 UNIT/250 ML IV.SOLN 9.8 UNIT IVCONT (21:24)
[2020-08-20] MEDS: Atorvastatin Calcium 80 MG TABLET PO (21:27)
[2020-08-20] MEDS: Sodium Bicarbonate 650 MG TABLET PO (21:35)
[2020-08-21] VITALS (9 sets, daily range): BP systolic 118–158; BP diastolic 54–96; PULSE 73–113; RESP 16–20; TEMP 36–37.1; O2SAT 97–100
--- NOTE | 2020-08-21 | ECG_ITS ---
Test Reason : converted to sinus Blood Pressure : / mmHG Vent. Rate : 066 BPM Atrial Rate : 066 BPM P-R Int : 144 ms QRS Dur : 078 ms QT Int : 468 ms P-R-T Axes : 045 012 064 degrees QTc Int : 490 ms Normal sinus rhythm Nonspecific T wave abnormality Prolonged QT Abnormal ECG When compared with ECG of 20-AUG-2020 09:15, Afib not present anymore Referred By: Chintan Stiles Electronically Signed By:Vishnu Mtz
[2020-08-21] MEDS: 0.9 % Sodium Chloride Flush 3 ML SYRINGE IVFLUSH ×2 (00:13→08:12)
[2020-08-21] MEDS: dilTIAZem HCL 125 MG in 0.9 % Sodium Chloride 100 ML IVCONT (03:45)
[2020-08-21 07:14] LABS: Hematocrit 33.6 % (37-47); Hemoglobin 10.7 g/dl (12.0-16.0); Mean Corpuscular HGB Conc 31.8 g/dl (31.0-35.0); Mean Corpuscular Volume 94.1 fL (80-98); Mean Platelet Volume 9.8 fL (9.4-12.3); Platelet Count 537 X10*3/uL (160-400); Red Blood Count 3.57 X10*6/uL (4.20-5.50); Red Cell Distribution Width 13.3 % (11.0-16.0); White Blood Count 8.1 X10*3/uL (4.8-10.8)
[2020-08-21 07:32] LABS: PTT Heparin Drip 46.9 SEC (53-77.9)
[2020-08-21 07:49] LABS: Anion Gap 19 (12-20); Blood Urea Nitrogen 89 mg/dL (9-16); Calcium 9.7 mg/dL (8.4-10.2); Carbon Dioxide 16 mmol/L (22-29); Chloride 117 mmol/L (96-108); Creatinine Clr Calc Pharmacy 29.8; Estimated Glomerular Filt Rate 29; Glucose Random 94 mg/dL (60-115); Potassium 5.4 mmol/l (3.3-5.1); Sodium 147 mmol/L (135-145)
[2020-08-21] MEDS: Heparin Sodium,Porcine 5,000 UNIT/ML VIAL 5000 UNIT IVPUSH (08:10)
[2020-08-21] MEDS: Omeprazole 20 MG CAPSULE.DR PO (08:12)
[2020-08-21] MEDS: Sodium Bicarbonate 650 MG TABLET PO ×2 (08:12→20:23)
[2020-08-21] MEDS: Clopidogrel Bisulfate 75 MG TABLET PO (08:12)
[2020-08-21] MEDS: clonazePAM 1 MG TABLET PO (08:12)
[2020-08-21] MEDS: Primidone 50 MG TABLET PO ×2 (08:12→20:23)
[2020-08-21] MEDS: Anastrozole 1 MG TABLET PO (08:13)
[2020-08-21] MEDS: hydrALAZINE HCl 50 MG TABLET PO (08:14)
[2020-08-21] MEDS: Metoprolol Succinate ER 100 MG TAB.ER.24H PO (08:17)
[2020-08-21] MEDS: Dextrose 5 % 1,000 ML 42 ML IVCONT (10:56)
--- NOTE | 2020-08-21 14:36 | P.PNIM_ITS ---
Subjective Subjective Date of Service: 08/21/20 Interval History: seen and examined no complaints converted to NSR ROS unreliable Physical Exam Vital Signs: Vital Signs: Last Vital Signs Temp 97.7 F 08/21/20 11:23 Pulse 74 08/21/20 11:23 Resp 18 08/21/20 11:23 BP 121/66 08/21/20 11:23 Pulse Ox 99 08/21/20 11:23 Body Mass Index 32.9 Const: Other: General - no acute distress, appears comfortable Cardiovascular - IRR Lungs - normal respiratory effort, clear to auscultation bilaterally, no wheezingdim Abd - soft, nontender, no rebound or guarding Extremities - no edema bilaterally Neuro - awake and alert, no focal deficits Objective Data Current Medications Generic Name Dose Route Start Last Admin Trade Name Freq PRN Reason Stop Dose Admin Acetaminophen 650 mg 08/19/20 21:40 Acetaminophen 325 Mg Tablet PO Q6H PRN Pain, Mild (Pain Scale 1-3) Anastrozole 1 mg 08/20/20 09:00 08/21/20 08:13 Anastrozole 1 Mg Tablet PO 1 mg DAILY [place] Administration Atorvastatin Calcium 80 mg 08/19/20 21:40 08/20/20 21:27 Atorvastatin Calcium 80 Mg Tablet PO 80 mg BEDTIME [place] Administration Clonazepam 1 mg 08/20/20 09:00 08/21/20 08:12 Clonazepam 1 Mg Tablet PO 1 mg DAILY [place] Administration Clopidogrel Bisulfate 75 mg 08/20/20 09:00 08/21/20 08:12 Clopidogrel Bisulfate 75 Mg Tablet PO 75 mg DAILY [place] Administration Docusate Sodium 100 mg 08/19/20 21:40 Docusate Sodium 100 Mg Capsule PO DAILY PRN Constipation Heparin Sodium (Porcine) 5,000 unit 08/19/20 17:37 08/21/20 08:10 Heparin Sodium,Porcine 5,000 Unit/Ml Vial IVPUSH 3,266 unit BOLUS PRN Administration 80 unit/kg - Heparin Protocol Heparin Sodium (Porcine) 3,265.88 unit 08/19/20 17:54 Heparin Sodium,Porcine 5,000 Unit/Ml Vial 40 unit/kg (3265.88 unit) IVPUSH BOLUS PRN 40 unit/kg - Heparin Protocol Heparin Sodium/Sodium Chloride 25,000 unit in 250 mls @ 0 mls/hr 08/19/20 17: 45 08/21/20 08:18 IVCONT 14 units/kg/hr .Q0M [place] 11.43 mls/hr Titration Protocol Per Protocol Diltiazem HCl 125 mg/ Sodium 125 mls @ 0 mls/hr 08/20/20 02:15 08/21/20 09:26 Chloride IVCONT 5 mg/hr .Q0M [place] 5 mls/hr Titration Protocol Per Protocol Dextrose 1,000 mls @ 42 mls/hr 08/21/20 08:45 08/21/20 10:56 D5w IVCONT 08/22/20 08:33 42 mls/hr .[id number] [place] Administration Metoprolol Succinate 100 mg 08/20/20 09:00 08/21/20 08:17 Metoprolol Succinate Er 100 Mg Tab.Er.24h PO 100 mg DAILY [place] Administration Protocol Omeprazole 20 mg 08/20/20 09:00 08/21/20 08:12 Omeprazole 20 Mg Capsule.Dr PO 20 mg DAILY [facility] Administration Pharmacy Consult 1 each 08/19/20 14:42 Consult Rx Perform Med Rec MISCELLANE ONCE PRN Consult order Primidone 50 mg 08/19/20 21:40 08/21/20 08:12 Primidone 50 Mg Tablet PO 50 mg BID [place] Administration Sodium Bicarbonate 650 mg 08/20/20 21:00 08/21/20 08:12 Sodium Bicarbonate 650 Mg Tablet PO 650 mg BID [place] Administration Sodium Chloride 3 ml 08/20/20 00:00 08/21/20 08:12 0.9 % Sodium Chloride Flush 3 Ml Syringe IVFLUSH 3 ml QSHIFT [place] Administration Labs CBC & Chem 7: 08/21/20 06:40 08/21/20 06:40 Microbiology Microbiology Results: Microbiology 08/19/20 19:41 Stool Stool Culture - Preliminary Culture in progress. 08/19/20 15:29 Blood - Venous Blood Culture - Preliminary No growth after 24 hours. 08/19/20 15:29 Blood - Venous Blood Culture - Preliminary No growth after 24 hours. Assessment and Plan (1) Acute kidney injury superimposed on CKD: Status: Acute (2) Pneumonia due to COVID-19 virus: Status: Acute (3) Atrial fibrillation with RVR: Status: Acute (4) Hypokalemia: Status: Acute (5) Metabolic acidosis: Status: Acute (6) Prolonged QT interval: Status: Acute Assessment and Plan: This is a 69-year-old female with a history of CKD, hypertension, dyslipidemia, stroke, trauma, breast cancer who presents to the emergency department with GI symptoms found to have multiple abnormalities including CHEO, COVID pneumonia, atrial fibrillation with rapid ventricular response 1. COVID-19 pneumonia no hypoxia monitor 2. CHEO and CKD, metabolic acidosis improving po bicarb 3. Atrial fibrillation with rapid ventricular response converted to NSR stop caridzem gtt heparin today, if renal function continues to improve -- change to eliquis tomorrow 4. Hypokalemia now elevated repeat now 5. Prolonged QT due to lytes, improved 6. Hypertension metoprolol, hydralazine 7. Diarrhea Stool studies ordered No pathology on abdominal CT 8. Mood restart sertraline Continue Ativan 9. Breast cancer Continue anastrozole 10. Tremor Continue primidone DVT prophylaxis-heparin
[2020-08-21 14:55] LABS: PTT Heparin Drip 164.3 SEC (53-77.9)
[2020-08-21 15:49] LABS: Anion Gap 16 (12-20); Blood Urea Nitrogen 87 mg/dL (9-16); Calcium 9.3 mg/dL (8.4-10.2); Carbon Dioxide 20 mmol/L (22-29); Chloride 115 mmol/L (96-108); Creatinine Clr Calc Pharmacy 28.1; Estimated Glomerular Filt Rate 27; Glucose Random 101 mg/dL (60-115); Potassium 4.8 mmol/l (3.3-5.1); Sodium 146 mmol/L (135-145)
[2020-08-21 16:32] LABS: PTT Heparin Drip 94.5 SEC (53-77.9)
[2020-08-21 18:26] LABS: PTT Heparin Drip 60.2 SEC (53-77.9)
[2020-08-21] MEDS: Atorvastatin Calcium 80 MG TABLET PO (20:23)
[2020-08-21] MEDS: ondansetron HCL 4 MG/2 ML VIAL IVPUSH (21:13)
--- NOTE | 2020-08-21 22:14 | PM.PNNEP ---
Subjective Subjective Date of Service: 08/21/20 Interval history: seen and examined no complaints converted to NSR ROS unreliable Physical Exam Vital Signs: Vital Signs: Last Vital Signs Temp 97.3 F 08/21/20 20:00 Pulse 73 08/21/20 20:00 Resp 16 08/21/20 20:00 BP 150/74 H 08/21/20 20:00 Pulse Ox 97 08/21/20 20:00 Body Mass Index 32.9 Const: Other: General - no acute distress, appears comfortable Cardiovascular - IRR Lungs - normal respiratory effort, clear to auscultation bilaterally, no wheezingdim Abd - soft, nontender, no rebound or guarding Extremities - no edema bilaterally Neuro - awake and alert, no focal deficits General: cooperative, alert, awake, confusion and tired appearing; No acute distress Nutritional Appearance: well nourished Orientation/consciousness: patient oriented x3 and confusion HENMT: Head: Yes normal to inspection, Yes normocephalic and Yes atraumatic Ears: hearing grossly normal bilaterally Eyes: General: appearance normal, both eyes and all related structures Visual White: normal visual white by confrontation Sclerae: sclerae normal Neck: Neck: Yes normal visual inspection and No tender Thyroid: Thyroid normal Chest: Chest palpation & inspection: normal inspection of the chest Resp: Effort & Inspection: normal respiratory effort and no respiratory distress Auscultation: clear to auscultation bilaterally Cardio: Other: General - no acute distress, appears comfortable Cardiovascular - IRR Lungs - normal respiratory effort, clear to auscultation bilaterally, no wheezingdim Abd - soft, nontender, no rebound or guarding Extremities - no edema bilaterally Neuro - awake and alert, no focal deficits Jugular venous distension: no JVD Rate: tachycardic and Other (Irregular/AFib 95-120) Rhythm: abnormal rhythm irregularly irregular GI: Inspection: Yes normal to inspection Palpation (GI): Soft to palpation and nontender Percussion: Yes normal to percussion Auscultation: normal bowel sounds : General: Yes no CVA tenderness Back/Spine/Pelvis: Back: no CVA tenderness Skin: General skin exam: no rashes or lesions noted Neuro: General: patient oriented x3 and confusion Cranial nerves: Yes CN's II-XII intact bilaterally and Yes Bilaterally intact EOM present Extrem: General: Yes normal to inspection Objective Data Labs CBC & Chem 7: 08/21/20 06:40 08/21/20 15:06 Labs: Laboratory Results - last 24 hr 08/21/20 08/21/20 08/21/20 06:40 06:40 06:40 WBC 8.1 RBC 3.57 L Hgb 10.7 L Hct 33.6 L D MCV 94.1 MCH 30.0 MCHC 31.8 RDW 13.3 Plt Count 537 H MPV 9.8 Absolute Nucleated RBC 0.000 Nucleated RBC % (auto) 0.0 PTT (Heparin Protocol) 46.9 L D Sodium 147 H Potassium 5.4 H D Chloride 117 H Carbon Dioxide 16 L Anion Gap 19 BUN 89 H* D Creatinine 1.74 H Estim Creat Clear Calc 29.8 Estimated GFR 29 Random Glucose 94 Calcium 9.7 D 08/21/20 08/21/20 08/21/20 14:12 15:06 16:07 WBC RBC Hgb Hct MCV MCH MCHC RDW Plt Count MPV Absolute Nucleated RBC Nucleated RBC % (auto) PTT (Heparin Protocol) 164.3 H* D 94.5 H D Sodium 146 H Potassium 4.8 Chloride 115 H Carbon Dioxide 20 L Anion Gap 16 BUN 87 H* Creatinine 1.84 H Estim Creat Clear Calc 28.1 Estimated GFR 27 Random Glucose 101 Calcium 9.3 08/21/20 17:38 WBC RBC Hgb Hct MCV MCH MCHC RDW Plt Count MPV Absolute Nucleated RBC Nucleated RBC % (auto) PTT (Heparin Protocol) 60.2 D Sodium Potassium Chloride Carbon Dioxide Anion Gap BUN Creatinine Estim Creat Clear Calc Estimated GFR Random Glucose Calcium Microbiology Microbiology Results: Microbiology 08/19/20 15:29 Blood - Venous Blood Culture - Preliminary No growth after 48 hours. 08/19/20 15:29 Blood - Venous Blood Culture - Preliminary No growth after 48 hours. 08/19/20 19:41 Stool Stool Culture - Preliminary Culture in progress. Assessment & Plan Assessment and plan (1) Acute kidney injury superimposed on CKD: Status: Acute (2) Pneumonia due to COVID-19 virus: Status: Acute (3) Atrial fibrillation with RVR: Status: Acute (4) Hypokalemia: Status: Acute (5) Metabolic acidosis: Status: Acute (6) Prolonged QT interval: Status: Acute Assessment and Plan: This is a 69-year-old female with a history of CKD, hypertension, dyslipidemia, stroke, trauma, breast cancer who presents to the emergency department with GI symptoms found to have multiple abnormalities including CHEO, COVID pneumonia, atrial fibrillation with rapid ventricular response 1. COVID-19 pneumonia no hypoxia monitor 2. CHEO and CKD, metabolic acidosis improving po bicarb 3. Atrial fibrillation with rapid ventricular response converted to NSR stop caridzem gtt heparin today, if renal function continues to improve -- change to eliquis tomorrow 4. Hyperkalemia treat with kayexalate 15 G daily 5. Prolonged QT due to lytes, improved 6. Hypertension metoprolol, hydralazine 7.hypernatremia if can not take adequate free h2O should replace with d5w with 30 meq hco3 DVT prophylaxis-heparin Time Spent With Patient Time: Total time spent is greater than 50% in coordination of care (as documented) at patient's floor/unit and/or counseling patient:
[2020-08-22] VITALS (8 sets, daily range): BP systolic 120–160; BP diastolic 59–77; PULSE 57–83; RESP 18–20; TEMP 35.9–37.7; O2SAT 96–99; BMI 32.5
[2020-08-22 01:58] LABS: PTT Heparin Drip 67.2 SEC (53-77.9)
[2020-08-22] MEDS: Heparin Sodium,Porcine/1/2NS 25,000 UNIT/250 ML IV.SOLN 8.17 UNIT IVCONT (03:16)
[2020-08-22 07:07] LABS: PTT Heparin Drip 58.1 SEC (53-77.9)
[2020-08-22] MEDS: 0.9 % Sodium Chloride Flush 3 ML SYRINGE IVFLUSH ×2 (08:25→16:26)
[2020-08-22] MEDS: Clopidogrel Bisulfate 75 MG TABLET PO (08:25)
[2020-08-22] MEDS: Omeprazole 20 MG CAPSULE.DR PO (08:25)
[2020-08-22] MEDS: Primidone 50 MG TABLET PO ×2 (08:25→23:06)
[2020-08-22] MEDS: Anastrozole 1 MG TABLET PO (08:25)
[2020-08-22] MEDS: clonazePAM 1 MG TABLET PO (08:25)
[2020-08-22] MEDS: Metoprolol Succinate ER 100 MG TAB.ER.24H PO (08:26)
--- NOTE | 2020-08-22 08:38 | PC.NURSE ---
PT VOMITTED UP WATER IMMEDIATELY AFTER SWALLOWING SODIUM BICARB 650 MG TAB. ONLY PILL NOTED. AM DOSE NOT RECEIVED.
[2020-08-22 08:41] LABS: Hematocrit 29.8 % (37-47); Hemoglobin 9.2 g/dl (12.0-16.0); Mean Corpuscular HGB Conc 30.9 g/dl (31.0-35.0); Mean Corpuscular Hemoglobin 29.7 pg (27.0-33.0); Mean Corpuscular Volume 96.1 fL (80-98); Mean Platelet Volume 9.6 fL (9.4-12.3); Platelet Count 480 X10*3/uL (160-400); Red Cell Distribution Width 13.6 % (11.0-16.0); White Blood Count 9.4 X10*3/uL (4.8-10.8)
[2020-08-22 09:19] LABS: Anion Gap 17 (12-20); Blood Urea Nitrogen 78 mg/dL (9-16); Calcium 9.5 mg/dL (8.4-10.2); Carbon Dioxide 23 mmol/L (22-29); Chloride 113 mmol/L (96-108); Creatinine Clr Calc Pharmacy 26.8; Estimated Glomerular Filt Rate 26; Glucose Random 110 mg/dL (60-115); Potassium 4.8 mmol/l (3.3-5.1); Sodium 148 mmol/L (135-145)
--- NOTE | 2020-08-22 09:38 | P.PNIM_ITS ---
Subjective Subjective Date of Service: 08/22/20 Interval History: seen and examined denies hallucinations wants to go home ROS General - no fevers or chills Cardiovascular - no chest pain Respiratory - no shortness of breath or cough Abdominal- no abdominal pain, nausea, vomiting, diarrhea Physical Exam Vital Signs: Vital Signs: Last Vital Signs Temp 97.5 F 08/22/20 07:47 Pulse 75 08/22/20 08:26 Resp 18 08/22/20 07:47 BP 129/59 L 08/22/20 08:26 Pulse Ox 97 08/22/20 07:47 Body Mass Index 32.9 Const: Other: General - no acute distress, appears comfortable Cardiovascular - RRR Lungs - normal respiratory effort, clear to auscultation bilaterally, no wheezin g dim sounds Abd - soft, nontender, no rebound or guarding Extremities - no edema bilaterally Neuro - awake and alert, no focal deficits; oriented to place, time, situation Objective Data Current Medications Generic Name Dose Route Start Last Admin Trade Name Freq PRN Reason Stop Dose Admin Acetaminophen 650 mg 08/19/20 21:40 Acetaminophen 325 Mg Tablet PO Q6H PRN Pain, Mild (Pain Scale 1-3) Anastrozole 1 mg 08/20/20 09:00 08/22/20 08:25 Anastrozole 1 Mg Tablet PO 1 mg DAILY DENTON Administration Apixaban 2.5 mg 08/22/20 11:00 Apixaban 2.5 Mg Tablet PO BID DENTON Atorvastatin Calcium 80 mg 08/19/20 21:40 08/21/20 20:23 Atorvastatin Calcium 80 Mg Tablet PO 80 mg BEDTIME DENTON Administration Clonazepam 1 mg 08/20/20 09:00 08/22/20 08:25 Clonazepam 1 Mg Tablet PO 1 mg DAILY DENTON Administration Clopidogrel Bisulfate 75 mg 08/20/20 09:00 08/22/20 08:25 Clopidogrel Bisulfate 75 Mg Tablet PO 75 mg DAILY DENTON Administration Docusate Sodium 100 mg 08/19/20 21:40 Docusate Sodium 100 Mg Capsule PO DAILY PRN Constipation Metoprolol Succinate 100 mg 08/20/20 09:00 08/22/20 08:26 Metoprolol Succinate Er 100 Mg Tab.Er.24h PO 100 mg DAILY DENTON Administration Protocol Omeprazole 20 mg 08/20/20 09:00 08/22/20 08:25 Omeprazole 20 Mg Capsule.Dr PO 20 mg DAILY DENTON Administration Ondansetron HCl 4 mg 08/21/20 20:58 08/21/20 21:13 Ondansetron Hcl 4 Mg/2 Ml Vial IVPUSH 4 mg Q8H PRN Administration Nausea and Vomiting Pharmacy Consult 1 each 08/19/20 14:42 Consult Rx Perform Med Rec MISCELLANE ONCE PRN Consult order Primidone 50 mg 08/19/20 21:40 08/22/20 08:25 Primidone 50 Mg Tablet PO 50 mg BID DENTON Administration Sodium Bicarbonate 650 mg 08/20/20 21:00 08/22/20 08:36 Sodium Bicarbonate 650 Mg Tablet PO Not Given BID DENTON Sodium Chloride 3 ml 08/20/20 00:00 08/22/20 08:25 0.9 % Sodium Chloride Flush 3 Ml Syringe IVFLUSH 3 ml QSHIFT DENTON Administration Labs CBC & Chem 7: 08/22/20 08:18 08/22/20 08:18 Microbiology Microbiology Results: Microbiology 08/19/20 15:29 Blood - Venous Blood Culture - Preliminary No growth after 48 hours. 08/19/20 15:29 Blood - Venous Blood Culture - Preliminary No growth after 48 hours. 08/19/20 19:41 Stool Stool Culture - Preliminary Culture in progress. Assessment and Plan (1) Acute kidney injury superimposed on CKD: Status: Acute (2) Pneumonia due to COVID-19 virus: Status: Acute (3) Atrial fibrillation with RVR: Status: Acute (4) Hypokalemia: Status: Acute (5) Metabolic acidosis: Status: Acute (6) Prolonged QT interval: Status: Acute Assessment and Plan: This is a 69-year-old female with a history of CKD, hypertension, dyslipidemia, stroke, trauma, breast cancer who presents to the emergency department with GI symptoms found to have multiple abnormalities including CHEO, COVID pneumonia, atrial fibrillation with rapid ventricular response 1. COVID-19 pneumonia no hypoxia monitor 2. CHEO and CKD stage 3, metabolic acidosis, hyperNa, hypoK SCr at about baseline continue d5w an additional 24 hours K normalized now 3. A Fib with RVR converted to sinus continue to toprol change heparin gtt to eliquis 2.5mg bid 4. Prolonged QT due to lytes, improved 5. Hypertension metoprolol hold hydralazine 6. Diarrhea resolved c. diff neg 7. Mood Ativan sertraline on hold due to qt 8. Breast cancer Continue anastrozole 9. Tremor Continue primidone DVT prophylaxis-heparin
--- NOTE | 2020-08-22 09:55 | PC.NURSE ---
HEPARIN GTT TURNED OFF AT 0953 PER MD. CHANGED TO PO ELIQUIS 2.5 MG TO BE GIVEN AT 1100 PER MD ORDER.
[2020-08-22] MEDS: Apixaban 2.5 MG TABLET PO ×2 (11:19→23:06)
[2020-08-22] MEDS: Dextrose 5 % 1,000 ML 50 ML IVCONT (11:19)
--- NOTE | 2020-08-22 18:53 | PC.NURSE ---
pt out of bed with 1 assist, pt tolerated 25% of her dinner ,no n/v/d. Crowe cath removed at 18:00 ,due to void at 00:00.
[2020-08-22] MEDS: Sodium Bicarbonate 650 MG TABLET PO (23:06)
--- NOTE | 2020-08-23 | ECG_ITS ---
Test Reason : CP Blood Pressure : / mmHG Vent. Rate : 064 BPM Atrial Rate : 064 BPM P-R Int : 150 ms QRS Dur : 084 ms QT Int : 460 ms P-R-T Axes : 061 021 046 degrees QTc Int : 474 ms Normal sinus rhythm with sinus arrhythmia Nonspecific T wave abnormality Prolonged QT Abnormal ECG When compared with ECG of 21-AUG-2020 09:38, No significant change was found Referred By: Chintan Stiles Electronically Signed By:GEOFF LEOS MD
[2020-08-23] MEDS: 0.9 % Sodium Chloride Flush 3 ML SYRINGE IVFLUSH (00:20)
[2020-08-23] MEDS: Acetaminophen 325 MG TABLET 650 MG PO (01:09)
[2020-08-23 03:00] VITALS: TEMP 36.8
[2020-08-23 04:00] VITALS: BP 138/85; PULSE 91; RESP 18; TEMP 36.8; O2SAT 98
[2020-08-23 05:44] LABS: Hematocrit 27.3 % (37-47); Hemoglobin 8.5 g/dl (12.0-16.0); Mean Corpuscular HGB Conc 31.1 g/dl (31.0-35.0); Mean Corpuscular Hemoglobin 29.6 pg (27.0-33.0); Mean Corpuscular Volume 95.1 fL (80-98); Mean Platelet Volume 9.5 fL (9.4-12.3); Platelet Count 400 X10*3/uL (160-400); Red Blood Count 2.87 X10*6/uL (4.20-5.50); Red Cell Distribution Width 13.2 % (11.0-16.0); White Blood Count 8.1 X10*3/uL (4.8-10.8)
[2020-08-23 06:06] LABS: Anion Gap 14 (12-20); Blood Urea Nitrogen 67 mg/dL (9-16); Calcium 9.2 mg/dL (8.4-10.2); Carbon Dioxide 22 mmol/L (22-29); Chloride 110 mmol/L (96-108); Creatinine Clr Calc Pharmacy 29.8; Estimated Glomerular Filt Rate 29; Glucose Random 115 mg/dL (60-115); Potassium 4.4 mmol/l (3.3-5.1); Sodium 142 mmol/L (135-145)
[2020-08-23 08:00] VITALS: BP 137/78; PULSE 68; RESP 18; TEMP 36.8; O2SAT 98
[2020-08-23] MEDS: clonazePAM 1 MG TABLET PO (09:43)
[2020-08-23] MEDS: Sodium Bicarbonate 650 MG TABLET PO (09:43)
[2020-08-23] MEDS: Clopidogrel Bisulfate 75 MG TABLET PO (09:43)
[2020-08-23] MEDS: Primidone 50 MG TABLET PO (09:43)
[2020-08-23] MEDS: Apixaban 2.5 MG TABLET PO (09:43)
[2020-08-23] MEDS: Omeprazole 20 MG CAPSULE.DR PO (09:43)
[2020-08-23 09:44] VITALS: BP 137/78; PULSE 68
[2020-08-23] MEDS: Metoprolol Succinate ER 100 MG TAB.ER.24H PO (09:44)
[2020-08-23] MEDS: Dextrose 5 % 1,000 ML 50 ML IVCONT (09:45)
[2020-08-23] MEDS: Anastrozole 1 MG TABLET PO (09:47)
[2020-08-23 12:00] VITALS: BP 136/68; PULSE 84; RESP 18; TEMP 36.3; O2SAT 97
--- NOTE | 2020-08-23 12:06 | P.PNNP_ITS ---
Subjective Subjective Date of Service: 08/23/20 Interval history: seen and examined no complaints Physical Exam Vital Signs: Vital Signs: Last Vital Signs Temp 98.3 F 08/23/20 08:00 Pulse 68 08/23/20 09:44 Resp 18 08/23/20 08:00 BP 137/78 08/23/20 09:44 Pulse Ox 98 08/23/20 08:00 Body Mass Index 32.5 Const: General: comfortable Orientation/consciousness: patient oriented x3 HENMT: Head: Yes normocephalic and Yes atraumatic Neck: Neck: Yes supple Resp: Auscultation: diminished lung sounds Cardio: Heart sounds: S1 normal heart sound present and S2 normal heart sound present GI: Palpation (GI): Soft to palpation and nontender Neuro: General: patient oriented x3 Extrem: General: No pedal edema Objective Data Labs CBC & Chem 7: 08/23/20 05:11 08/23/20 05:11 Labs: Laboratory Results - last 24 hr 08/23/20 08/23/20 05:11 05:11 WBC 8.1 RBC 2.87 L Hgb 8.5 L Hct 27.3 L MCV 95.1 MCH 29.6 MCHC 31.1 RDW 13.2 Plt Count 400 MPV 9.5 Absolute Nucleated RBC 0.000 Nucleated RBC % (auto) 0.0 Sodium 142 Potassium 4.4 Chloride 110 H Carbon Dioxide 22 Anion Gap 14 BUN 67 H Creatinine 1.73 H Estim Creat Clear Calc 29.8 Estimated GFR 29 Random Glucose 115 Calcium 9.2 Microbiology Microbiology Results: Microbiology 08/19/20 19:41 Stool Stool Culture - Final No growth after 3 days. 08/19/20 15:29 Blood - Venous Blood Culture - Preliminary No growth after 48 hours. 08/19/20 15:29 Blood - Venous Blood Culture - Preliminary No growth after 48 hours. 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
[2020-08-23 12:30] LABS: Hematocrit 31.1 % (37-47); Hemoglobin 9.7 g/dl (12.0-16.0)
--- NOTE | 2020-08-23 12:56 | PM.DS ---
DS: Providers Provider Date of admission: 08/19/20 19:47 Primary care physician: Unknown Physician Consults: 08/19/20 19:47 Consult to Nephrology Routine Consulting Provider: Tom Garcia Reason for consultation: cheo on ckd, metabolic acidosis Has provider been notified: No DS: Diagnosis Discharge Diagnosis (1) CHEO (acute kidney injury): Status: Acute (2) Atrial fibrillation with RVR: Status: Acute (3) COVID-19: Status: Acute (4) Anemia: Status: Acute (5) CKD (chronic kidney disease) stage 3, GFR 30-59 ml/min: Status: Acute (6) Hypokalemia: Status: Acute (7) Metabolic acidosis: Status: Acute (8) Prolonged QT interval: Status: Acute DS: Medications Discharge Medications Home Medications: Home Medications Medication Instructions Recorded Confirmed amlodipine 10 mg tablet 10 mg PO BEDTIME 06/15/20 08/19/20 anastrozole 1 mg tablet 1 mg PO DAILY 06/15/20 08/19/20 atorvastatin 80 mg tablet 80 mg PO BEDTIME 06/15/20 08/19/20 chlorthalidone 50 mg tablet 50 mg PO DAILY 06/15/20 08/19/20 clonazepam 1 mg tablet 1 mg PO DAILY 06/15/20 08/19/20 clopidogrel 75 mg tablet 75 mg PO DAILY 06/15/20 08/19/20 hydralazine 50 mg tablet 50 mg PO BID 06/15/20 08/19/20 lisinopril 40 mg tablet 40 mg PO DAILY 06/15/20 08/19/20 loratadine 10 mg tablet 10 mg PO DAILY 06/15/20 08/19/20 metoprolol succinate 100 mg 100 mg PO DAILY 06/15/20 08/19/20 tablet,extended release 24 hr oxycodone-acetaminophen 5 mg-325 1 tab PO Q8H PRN 06/15/20 08/19/20 mg tablet pantoprazole 20 mg tablet,delayed 20 mg PO DAILY 06/15/20 08/19/20 release sertraline 50 mg tablet 50 mg PO DAILY 06/15/20 08/19/20 primidone 50 mg PO BID 08/19/20 08/19/20 Previous Rx's Medication Instructions Recorded apixaban [Eliquis] 2.5 mg PO BID #60 tab 08/23/20 DS: Summary Hospital Course Hospital Course: From the admission H&P: This is a 69-year-old female who originally presented to the emergency department with abdominal complaints. She reported abdominal pain as well as the vomiting and diarrhea. She underwent a CT scan of her abdomen which showed no abdominal pathology. It did however show findings in the lung bases suggestive of COVID pneumonia. She did in fact test positive for coronavirus. Her inflammatory markers including CRP, LDH and ferritin were elevated. However she was not noted to be hypoxic. She denies any shortness of breath or cough. She denies any significant fever. She was noted to be in new onset atrial fibrillation with rapid ventricular response and was started on Cardizem drip as well as heparin for anticoagulation given a chads Vasc score of 3. Lab work was significant for acute on chronic kidney injury and she was treated with normal saline. Repeat chemistry showed no improvement in her renal function however her bicarb dropped to 12 and potassium dropped to 2.9. Nephrology was consulted and recommended giving 75 cc of LR x1 L and repeating chemistries. Did not feel that bicarb was warranted at this time. Her D-dimer was elevated however V/Q scan showed low probability of PE. Hospital Course: Patient was started on IV Cardizem drip and IV heparin for her atrial fibrillation with rapid ventricular. Fortunately with IV Cardizem drip she was able to convert into normal sinus rhythm. She was transitioned to her oral metoprolol 100 mg daily. Likely cause of her AFib with RVR was deemed secondary to her COVID as well as acute kidney injury. She will be transitioned from IV heparin to oral Eliquis 2.5 mg (renal dosing) twice daily as her Vel Vasc score is greater than 4. She will be referred to Cardiology (Dr. Mtz) and is to completed 2D echo as an outpatient. In regards to her acute kidney injury she was treated with IV hydration with improvement in her kidney function to her baseline. Lastly, in regards to the patient's antihypertensives, she was treated only with IV Cardizem drip and subsequently with metoprolol with normotensive readings. She will be discharged home with hydralazine, chlorthalidone, lisinopril on hold for at least 1 week with close follow-up with PCP and/or Nephrology for resumption. Patients sertraline was held due to prolonged qt but will be restarted upon d/c has qt has improved. Patients daughter was informed of the above and in agreement with d/c plan. She will have repeat BMP ordered for 1 week and send to pcp + Dr. Clark from nephrology. Time Spent with Patient Time attestation: Total time spent providing and/or coordinating discharge services: Physical Exam Vital Signs: Vital Signs: Last Vital Signs Temp 97.3 F 08/23/20 12:00 Pulse 84 08/23/20 12:00 Resp 18 08/23/20 12:00 BP 136/68 08/23/20 12:00 Pulse Ox 97 08/23/20 12:00 Body Mass Index 32.5 Const: Other: General - no acute distress, appears comfortable Cardiovascular - regular rate and rhythm, S1-S2 Lungs - normal respiratory effort, clear to auscultation bilaterally, no wheezing Abdomen - soft, nontender, no rebound or guarding Extremities - no edema bilaterally Neuro - awake and alert, no focal deficits DS: Data Data Completed and Pending Labs on day of discharge: Laboratory Last Values WBC 8.1 X10*3/uL (4.8-10.8) 08/23/20 05:11 RBC 2.87 X10*6/uL (4.20-5.50) L 08/23/20 05:11 Hgb 9.7 g/dl (12.0-16.0) L 08/23/20 12:20 Hct 31.1 % (37-47) L 08/23/20 12:20 MCV 95.1 fL (80-98) 08/23/20 05:11 MCH 29.6 pg (27.0-33.0) 08/23/20 05:11 MCHC 31.1 g/dl (31.0-35.0) 08/23/20 05:11 RDW 13.2 % (11.0-16.0) 08/23/20 05:11 Plt Count 400 X10*3/uL (160-400) 08/23/20 05:11 MPV 9.5 fL (9.4-12.3) 08/23/20 05:11 Immature Gran % (Auto) 0.5 % (0.0-0.4) H 08/20/20 06:34 Neut % (Auto) 72.2 % (45-73) 08/20/20 06:34 Lymph % (Auto) 17.3 % (20-40) L 08/20/20 06:34 [place] % (Auto) 8.3 % (2-11) 08/20/20 06:34 Eos % (Auto) 1.3 % (0-4) 08/20/20 06:34 Baso % (Auto) 0.4 % (0-2) 08/20/20 06:34 Lymph # (Auto) 1.5 X10*3/uL (1.2-4.9) 08/20/20 06:34 [place] # (Auto) 0.7 X10*3/uL (0.1-1.2) 08/20/20 06:34 Eos # (Auto) 0.1 X10*3/uL (0.0-0.4) 08/20/20 06:34 Baso # (Auto) 0.0 X10*3/uL (0.0-0.2) 08/20/20 06:34 Abs Immat Gran (auto) 0.04 X10*3/uL (0.00-0.03) H 08/20/20 06:34 Absolute Neuts (auto) 6.2 X10*3/uL (2.0-8.3) 08/20/20 06:34 Absolute Nucleated RBC 0.000 X10*3/uL (0.0-0.012) 08/23/20 05:11 Nucleated RBC % (auto) 0.0 /100WBC (0.0-0.2) 08/23/20 05:11 PT 17.6 SEC (10.8-13.0) H 08/20/20 06:34 INR 1.5 (0.9-1.1) H 08/20/20 06:34 APTT 27.4 SEC (24.1-38.0) 08/19/20 13:39 PTT (Heparin Protocol) 58.1 SEC (53-77.9) 08/22/20 06:02 D-Dimer 3792 NG/ML 08/19/20 13:39 Sodium 142 mmol/L (135-145) 08/23/20 05:11 Potassium 4.4 mmol/l (3.3-5.1) 08/23/20 05:11 Chloride 110 mmol/L (96-108) H 08/23/20 05:11 Carbon Dioxide 22 mmol/L (22-29) 08/23/20 05:11 Anion Gap 14 (12-20) 08/23/20 05:11 BUN 67 mg/dL (9-16) H 08/23/20 05:11 Creatinine 1.73 mg/dL (0.5-1.4) H 08/23/20 05:11 Estim Creat Clear Calc 29.8 08/23/20 05:11 Estimated GFR 29 08/23/20 05:11 Random Glucose 115 mg/dL (60-115) 08/23/20 05:11 Lactic Acid 1.1 mmol/L (0.5-2.0) 08/19/20 15:29 Calcium 9.2 mg/dL (8.4-10.2) 08/23/20 05:11 Magnesium 3.1 mg/dL (1.6-2.6) H 08/19/20 13:39 Ferritin 850 ng/mL (10-250) H 08/19/20 13:39 Total Bilirubin 0.5 mg/dL (0.0-1.0) 08/19/20 13:39 AST 40 U/L (5-31) H 08/19/20 13:39 ALT 75 U/L (0-31) H 08/19/20 13:39 Alkaline Phosphatase 104 U/L (39-117) 08/19/20 13:39 Lactate Dehydrogenase 247 U/L (122-220) H 08/19/20 13:39 Troponin I High Sens 25.0 ng/L (<3.5-17.0) H 08/19/20 17:01 C-Reactive Protein 5.10 mg/dL (< or = 0.50) H 08/19/20 13:39 Total Protein 7.8 g/dL (6.5-8.0) 08/19/20 13:39 Albumin 4.2 g/dL (3.5-5.0) 08/19/20 13:39 Procalcitonin 0.28 ng/mL 08/19/20 13:39 TSH 1.06 uIU/mL (0.32-4.0) 08/19/20 13:39 Urine Color YELLOW 08/19/20 16:07 Urine Appearance CLEAR 08/19/20 16:07 Urine pH 5.0 (5.0-8.0) 08/19/20 16:07 Ur Specific [place] 1.015 (1.005-1.025) 08/19/20 16:07 Urine Protein NEG MG/DL (NEG-TRACE) 08/19/20 16:07 Urine Glucose (UA) NEG MG/DL (NEG) 08/19/20 16:07 Urine Ketones NEG MG/DL (NEG) 08/19/20 16:07 Urine Blood NEG (NEG) 08/19/20 16:07 Urine Nitrite NEG (NEG) 08/19/20 16:07 Ur Leukocyte Esterase NEG (NEG) 08/19/20 16:07 Urine RBC 0-2 /HPF (0) 08/19/20 16:07 Urine WBC 0 /HPF (0-4) 08/19/20 16:07 Ur Squamous Epith Cells TRACE /LPF 08/19/20 16:07 Amorphous Sediment 1+ /LPF 08/19/20 16:07 Urine Bacteria NONE /LPF 08/19/20 16:07 Stool Occult Blood NEG (NEG) 08/19/20 19:41 Stool Leukocytes, Qual NEGATIVE (NEGATIVE) 08/19/20 19:41 C. difficile Toxin A&B Negative (Negative) 08/19/20 19:41 C. difficile Antigen Negative (Negative) 08/19/20 19:41 C. difficile Interpret SEE NOTE 08/19/20 19:41 Coronavirus (PCR) POSITIVE (Negative) A 08/19/20 15:10 Influenza Type A (PCR) NEGATIVE (Negative) 08/19/20 15:10 Influenza Type B (PCR) NEGATIVE (Negative) 08/19/20 15:10 RSV RNA Qual (PCR) NEGATIVE (Negative) 08/19/20 15:10 Preliminary micro results at discharge 08/19/20 15:29 Blood Culture - Preliminary Blood - Venous No growth after 48 hours. 08/19/20 15:29 Blood Culture - Preliminary Blood - Venous No growth after 48 hours. Discharge Plan Discharge Patient Disposition: Home Health Service Referrals: Vishnu Mtz MD [Physician] - Physician,Unknown [Primary Care Provider] - Discharge Medications: New Eliquis 2.5 mg Tablet 2.5 mg PO BID Qty: 60 RF: 0 Continued primidone 50 mg tablet 50 mg PO BID RF: 0 oxycodone-acetaminophen 5-325 mg tablet 1 tab PO Q8H PRN (Reason: Pain) RF: 0 sertraline 50 mg tablet 50 mg PO DAILY RF: 0 clonazepam 1 mg tablet 1 mg PO DAILY RF: 0 loratadine 10 mg tablet 10 mg PO DAILY RF: 0 pantoprazole 20 mg tablet,delayed release (DR/EC) 20 mg PO DAILY RF: 0 amlodipine 10 mg tablet 10 mg PO BEDTIME RF: 0 metoprolol succinate 100 mg tablet extended release 24 hr 100 mg PO DAILY RF: 0 atorvastatin 80 mg tablet 80 mg PO BEDTIME RF: 0 clopidogrel 75 mg tablet 75 mg PO DAILY RF: 0 anastrozole 1 mg tablet 1 mg PO DAILY RF: 0 Held hydralazine 50 mg tablet 50 mg PO BID RF: 0 Hold Instructions: Resume on 08/30/20. hold for 1 week or longer, do not start until told by your primary doctor chlorthalidone 50 mg tablet 50 mg PO DAILY RF: 0 Hold Instructions: Resume on 08/30/20. for at least 1 week or until told to do so by your doctors lisinopril 40 mg tablet 40 mg PO DAILY RF: 0 Hold Instructions: Resume on 08/30/20. hold until told to do so by your primary doctor Discharge Orders: Discharge Order (Routine); Ordered 08/23/20 Ordered By: Chintan Stiles Diet: advance to usual diet Activity on Discharge: As tolerated Other Ambulatory Orders: Basic Metabolic Panel (Routine) Timeframe: 1 Week Facility: [facility] - Location: Laboratory Ordered By: Chintan Stiles Visit Report Forms: Patient Portal Discharge page Care Plan Goals: To stay healthy and out of the hospital. Health Concerns: CHEO on CKD COVID 19 A. Fib Plan of Treatment: CHEO on CKD - your kidneys have improved, f/u with your kidney doctors COVID 19 - you did not require treatment for his A. Fib - You have now in a regular rhythm. continue your metoprolol. take eliquis 2.5mg twice daily. f/u with cardiology. Blood Pressure -- Do not take Chlorthalidone, hdyralazine and Lisinopril. Take metoprolol. F/u with kidney doctors in 1 weeek.
--- NOTE | 2020-08-23 13:07 | MHC.CM.PN ---
Patient is being discharged home today with resumption of services from [facility]. Family will provide transport.
== END 2020-08-23 14:20 | disposition home health service (06) | DRG 177 ==
LOC: HO.ED 18:53 → HO.IMC 20:28
PROVIDERS: Internal Medicine; Nurse Practitioner Primary Care; Physician Assistant Medical; Admitting Provider Internal Medicine; Emergency Provider Emergency Medicine; Visit Provider Family Medicine
DX: U07.1 COVID-19 (principal); J12.89 Other viral pneumonia; N17.9 Acute kidney failure, unspecified; E87.0 Hyperosmolality and hypernatremia; E87.2 Acidosis; I48.91 Unspecified atrial fibrillation; E87.6 Hypokalemia; R94.31 Abnormal electrocardiogram [ECG] [EKG]; E78.5 Hyperlipidemia, unspecified; I12.9 Hypertensive chronic kidney disease with stage 1 through stage 4 chronic kidney disease, or unspecified chronic kidney disease; C50.919 Malignant neoplasm of unspecified site of unspecified female breast; R19.7 Diarrhea, unspecified; N18.30 Chronic kidney disease, stage 3 unspecified; D63.1 Anemia in chronic kidney disease; E86.0 Dehydration; Z98.1 Arthrodesis status; Z88.6 Allergy status to analgesic agent; Z79.01 Long term (current) use of anticoagulants; Z79.811 Long term (current) use of aromatase inhibitors; Z79.02 Long term (current) use of antithrombotics/antiplatelets; Z79.891 Long term (current) use of opiate analgesic; Z79.899 Other long term (current) drug therapy
CPT/HCPCS: 0241U; 36415; 71045; 74176; 78580; 80048; 80053; 81001; 82272; 82728; 83605; 83615; 83735; 84145; 84443; 84484; 85014; 85018; 85025; 85027; 85379; 85610; 85730; 86140; 87040; 87045; 87046; 87324; 87449; 89055; 93005; 93306; 96361; 96365; 96366; 96375; 99225; 99232; 99285; 99291; A9540; J0696; J2060; J2405; J2765

== ENCOUNTER 2020-09-03 14:31 | Outpatient (REF) | payer MEDICARE, MEDICAID, SELFPAY ==
[2020-09-03 14:47] LABS: Anion Gap 12 (12-20); Blood Urea Nitrogen 11 mg/dL (9-16); Calcium 8.4 mg/dL (8.4-10.2); Carbon Dioxide 29 mmol/L (22-29); Chloride 105 mmol/L (96-108); Estimated Glomerular Filt Rate 48; Glucose Random 89 mg/dL (60-115); Potassium 4.4 mmol/l (3.3-5.1); Sodium 142 mmol/L (135-145)
== END 2020-09-03 14:32 | disposition home or self-care (01) ==
LOC: HO.LNP 14:31
PROVIDERS: PCP Internal Medicine Geriatric Medicine; Visit Provider Internal Medicine Nephrology
DX: U07.1 COVID-19 (principal)
CPT/HCPCS: 80048

== ENCOUNTER 2021-02-23 13:40 | Outpatient (REF) | payer MEDICARE, MEDICAID, SELFPAY ==
--- NOTE | ~2021-02-23 | MM_ITS ---
EXAMINATION: BONE DENSITOMETRY CLINICAL INDICATION: Long-term use of aromatase inhibitor. Prior fusion L4-L5 COMPARISON: Previous BD dated 06/10/2019 and baseline BD dated 06/07/2017. CT abdomen and pelvis 08/19/2020. TECHNIQUE: Using a [employer] DXA System (software version: 13.1) manufactured by [employer], dual-energy x-ray absorptiometry was performed of the lumbar spine and left hip. The images are of good technical quality. Summary results are attached. FINDINGS: AP SPINE L1-L3 (excluding L4): The data of L1-L4 has been changed to exclude the L4 vertebral body, because fusion hardware at this level may cause overestimation of lumbar spine density. Current: BMD 1.265 g/cm2, Z-score 2.0, T-score 0.8, normal, 2.8% decrease from previous, 2.2% increase from baseline (<5% change is not significant). Prior: BMD 1.301 g/cm2. Baseline: BMD 1.238 g/cm2. LEFT FEMUR, NECK: Current: BMD 0.725 g/cm2, Z-score -0.8, T-score -2.2, osteopenia. Prior: BMD 0.720 g/cm2. Baseline: BMD 0.834 g/cm2. LEFT FEMUR, TOTAL: Current: BMD 0.905 g/cm2, Z-score 0.4, T-score -0.8, normal, 1.0% increase from previous, 5.3% decrease from baseline (<5% change is not significant). Prior: BMD 0.896 g/cm2. Baseline: BMD 0.956 g/cm2. IDENTIFIED RISK FACTORS: Menopause, low calcium intake, history of fracture (adult). HISTORY OF FRACTURE: Spine. MEDICATIONS: Calcium, vitamin D. MM/XR DEXA axial skeleton IMPRESSION: 1. DIAGNOSIS: Osteopenia based on the lowest T-score value of -2.2 in the femoral neck applying World Health Organization criteria. 2. 10-YEAR FRACTURE RISK PREDICTION, FRAX: Major osteoporotic fracture (clinical spine, forearm, hip or shoulder) 11.7%. Hip fracture 2.5%. 3. Treatment Recommendations: NOF guidelines recommend consideration for treatment in postmenopausal women and men age 50 and older presenting with the following: -A hip or vertebral (clinical or morphometric) fracture. -T-score less than or equal to -2.5 at the femoral neck or spine after appropriate evaluation to exclude secondary causes. -Low bone mass at the hip or spine and a 10-year fracture probability by FRAX of greater than or equal to 3% for hip fracture or greater than or equal to 20% for major osteoporotic fracture based on the [place] adapted WHO algorithm. 4. Other Recommendations: All treatment decisions require clinical judgment and consideration of individual patient factors, including patient preferences, comorbidities, previous drug use, risk factors not captured in the FRAX model (e.g. frailty, falls, vitamin D deficiency, increased bone turnover, interval significant decline in bone density) and possible under or overestimation of fracture risk by FRAX. Additional medical evaluation for secondary cause of low bone mineral density may be appropriate. FUTURE SCAN RECOMMENDATION: People with diagnosed cases of osteoporosis or at high risk for fracture should have regular bone mineral density tests. For patients eligible for Medicare, routine testing is allowed once every 2 years. The testing frequency can be increased to one year for patients who have rapidly progressing disease, those who are receiving or discontinuing medical therapy to restore bone mass, or have additional risk factors.
--- NOTE | ~2021-02-23 | MM_ITS ---
EXAMINATION: MM SCREENING DIGITAL BREAST TOMOSYNTHESIS, BILATERAL CLINICAL INFORMATION: Due for yearly. Prior right mastectomy 2014 for breast cancer and left breast reduction mammoplasty 2014. Prior benign left breast biopsy 02/01/2017 (fibrosis, scar, organizing fat necrosis, foreign body type reaction). COMPARISON: Mammography: 06/16/2019, 06/12/2018, 12/06/2017, 11/06/2017, 02/01/2017, 11/13/2016 TECHNIQUE: Digital breast tomosynthesis is performed in both the craniocaudal and mediolateral oblique views along with computer-aided detection (CAD). Synthesized 2D images are generated from the tomosynthesis. FINDINGS: There are scattered areas of fibroglandular density (ACR BI-RADS breast composition Category b). There are postoperative changes again noted in the central 6:00 breast mid depth with fat necrosis, biopsy clip marker, and coarse and peripherally oriented dystrophic calcifications. Calcifications are slowly increased over time and correspond to the scar and periphery of the fat necrosis. There is no interval mass or architectural abnormality. No interval suspicious calcifications. No significant changes. MM/MM tomosynthesis screening LT IMPRESSION: No significant changes from prior studies. ASSESSMENT: BI-RADS 2: Benign RECOMMENDATION: Routine annual mammography screening. This patient's information was entered into a reminder system with a target due date for their next mammogram.
== END 2021-02-23 13:41 | disposition home or self-care (01) ==
LOC: HO.MAMMO 13:40
PROVIDERS: Visit Provider Internal Medicine Geriatric Medicine
DX: Z12.31 Encounter for screening mammogram for malignant neoplasm of breast (principal); Z13.820 Encounter for screening for osteoporosis; M85.80 Other specified disorders of bone density and structure, unspecified site; Z78.0 Asymptomatic menopausal state; Z79.811 Long term (current) use of aromatase inhibitors; Z79.899 Other long term (current) drug therapy; Z85.3 Personal history of malignant neoplasm of breast; Z87.81 Personal history of (healed) traumatic fracture
CPT/HCPCS: 77063; 77067; 77080

== ENCOUNTER 2021-12-01 09:45 | Outpatient (REF) | payer MEDICARE, MEDICAID, SELFPAY ==
--- NOTE | ~2021-12-01 | XR_ITS ---
EXAMINATION: XR HAND, RIGHT CLINICAL INFORMATION: Pain. COMPARISON: None TECHNIQUE: PA, lateral, and oblique views of the right hand. FINDINGS: There is bony demineralization. Bony alignment is normal, with a mild ulnar positive variance. 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 There is mild to moderate osteoarthritic change of the second and third distal interphalangeal joints and of the third proximal interphalangeal joint. There is mild osteoarthritic change of the articulation between the trapezium and navicular. No fracture or dislocation is seen. The proximal and distal carpal rows are intact. No focal bone erosion is noted. There is no soft tissue swelling, gas or foreign body. XR/XR hand LT min 3V IMPRESSION: There are multi-focal degenerative changes of the right hand and wrist. No acute fracture or dislocation is seen. There is no abnormal bony erosive change. EXAMINATION: XR HAND, LEFT CLINICAL INFORMATION: Pain. COMPARISON: None TECHNIQUE: PA, lateral, and oblique views of the left hand. FINDINGS: There is bony demineralization. Bony alignment is normal, with a slight ulnar positive variance. There is mild osteoarthritic change of the interphalangeal joint of the left thumb. There is mild to moderate osteoarthritic change of the third distal interphalangeal joint. There is very mild osteoarthritic change of the first metacarpophalangeal joint. There is moderate osteoarthritic change of the first carpometacarpal joint. No fracture or dislocation is seen. The proximal and distal carpal rows are intact. No focal bone erosion is seen. This no soft tissue swelling, gas or foreign body. IMPRESSION: There are multi-focal degenerative changes of the left hand and wrist, as detailed. No fracture or dislocation is seen. No abnormal bone erosion is seen.
--- NOTE | ~2021-12-01 | XR_ITS ---
EXAMINATION: XR HAND, RIGHT CLINICAL INFORMATION: Pain. COMPARISON: None TECHNIQUE: PA, lateral, and oblique views of the right hand. FINDINGS: There is bony demineralization. Bony alignment is normal, with a mild ulnar positive variance. 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 There is mild to moderate osteoarthritic change of the second and third distal interphalangeal joints and of the third proximal interphalangeal joint. There is mild osteoarthritic change of the articulation between the trapezium and navicular. No fracture or dislocation is seen. The proximal and distal carpal rows are intact. No focal bone erosion is noted. There is no soft tissue swelling, gas or foreign body. XR/XR hand RT min 3V IMPRESSION: There are multi-focal degenerative changes of the right hand and wrist. No acute fracture or dislocation is seen. There is no abnormal bony erosive change. EXAMINATION: XR HAND, LEFT CLINICAL INFORMATION: Pain. COMPARISON: None TECHNIQUE: PA, lateral, and oblique views of the left hand. FINDINGS: There is bony demineralization. Bony alignment is normal, with a slight ulnar positive variance. There is mild osteoarthritic change of the interphalangeal joint of the left thumb. There is mild to moderate osteoarthritic change of the third distal interphalangeal joint. There is very mild osteoarthritic change of the first metacarpophalangeal joint. There is moderate osteoarthritic change of the first carpometacarpal joint. No fracture or dislocation is seen. The proximal and distal carpal rows are intact. No focal bone erosion is seen. This no soft tissue swelling, gas or foreign body. IMPRESSION: There are multi-focal degenerative changes of the left hand and wrist, as detailed. No fracture or dislocation is seen. No abnormal bone erosion is seen.
== END 2021-12-01 09:46 | disposition home or self-care (01) ==
LOC: HO.XRAY 09:45
PROVIDERS: PCP Internal Medicine Geriatric Medicine; Visit Provider Internal Medicine Geriatric Medicine
DX: M79.641 Pain in right hand (principal); M79.642 Pain in left hand
CPT/HCPCS: 73130

== ENCOUNTER 2022-02-09 09:24 | Outpatient (REF) | payer MEDICARE, MEDICAID, SELFPAY ==
--- NOTE | 2022-02-09 09:30 | EMG_ITS ---
Bilateral median and ulnar motor and sensory studies were performed. Bilateral radial sensory studies were performed and paraspinal muscles were tested. IMPRESSION: 1. Moderately severe right median neuropathy across carpal tunnel, left was normal. 2. [id number] bilateral ulnar neuropathy across elbow. MD EDIE Waters/IRINA / [id number]
== END 2022-02-09 09:25 | disposition home or self-care (01) ==
LOC: HO.NEURO 09:24
PROVIDERS: PCP Internal Medicine Geriatric Medicine; Visit Provider Internal Medicine Geriatric Medicine
DX: M79.641 Pain in right hand (principal); M79.642 Pain in left hand; R25.2 Cramp and spasm
CPT/HCPCS: 95886; 95911

== ENCOUNTER 2022-03-09 07:15 | Outpatient (REF) | payer MEDICARE, MEDICAID, SELFPAY ==
--- NOTE | ~2022-03-09 | MM_ITS ---
EXAMINATION: MM SCREENING DIGITAL BREAST TOMOSYNTHESIS, LEFT CLINICAL INFORMATION: Due for yearly. Right mastectomy for breast cancer, 2014. Left reduction mammoplasty 2014. Left breast biopsy 02/01/2017 (fibrosis, scar, organizing fat necrosis, foreign body type reaction). COMPARISON: Mammography: 02/23/2021, 06/16/2019, 06/12/2018 TECHNIQUE: Digital breast tomosynthesis is performed in both the craniocaudal and mediolateral oblique views along with computer-aided detection (CAD). Synthesized 2D images are generated from the tomosynthesis. Additional left MLO view is provided. FINDINGS: There are scattered areas of fibroglandular density (ACR BI-RADS breast composition Category b). No significant changes from prior studies. There is stable scarring and dystrophic calcifications and fat necrosis with central biopsy clip marker again seen posterior central left breast. The axilla and skin contours are unremarkable. No interval mass or architectural abnormality or abnormal calcifications. MM/MM tomosynthesis screening LT IMPRESSION: No mammographic evidence of malignancy. ASSESSMENT: BI-RADS 2: Benign RECOMMENDATION: Routine annual mammography screening. This patient's information was entered into a reminder system with a target due date for their next mammogram.
== END 2022-03-09 07:16 | disposition home or self-care (01) ==
LOC: HO.MAMMO 07:15
PROVIDERS: Visit Provider Internal Medicine Geriatric Medicine
DX: Z12.31 Encounter for screening mammogram for malignant neoplasm of breast (principal)
CPT/HCPCS: 77063; 77067

== ENCOUNTER 2022-03-29 09:09 | Outpatient (REF) | payer MEDICARE, MEDICAID, SELFPAY ==
--- NOTE | ~2022-03-29 | XR_ITS ---
EXAMINATION: XR HAND, RIGHT CLINICAL INFORMATION: Pain in right and COMPARISON: None TECHNIQUE: PA, lateral, and oblique views of the right hand. FINDINGS: There is loss of PIP and DIP joint space. The MCP and intercarpal and carpometacarpal joint space is maintained normal. No periarticular spurring. No visible acute fracture or dislocation seen. XR/XR hand RT min 3V IMPRESSION: Degenerative arthritic changes PIP and DIP joints. No deformity seen. No visible acute fracture or subluxation.
== END 2022-03-29 09:10 | disposition home or self-care (01) ==
LOC: HO.HOSX 09:09
PROVIDERS: Visit Provider Orthopaedic Surgery
DX: M79.641 Pain in right hand (principal); G56.03 Carpal tunnel syndrome, bilateral upper limbs; R20.0 Anesthesia of skin; M25.641 Stiffness of right hand, not elsewhere classified
CPT/HCPCS: 73130; 99202

== ENCOUNTER 2022-04-27 | Outpatient (REF) | payer MEDICARE, MEDICAID, SELFPAY | END 2022-04-27 00:01 | disposition home or self-care (01) | LOC: HO.SSS | PROVIDERS: PCP Internal Medicine Geriatric Medicine; Visit Provider Orthopaedic Surgery | DX: Z13.89 Encounter for screening for other disorder (principal) | CPT/HCPCS: J0171 ==

== ENCOUNTER 2023-08-14 10:20 | Outpatient (REF) | payer MEDICARE, MEDICAID, SELFPAY ==
[2023-08-14 11:23] LABS: MANUAL DIFF FLAG NO
[2023-08-14 11:44] LABS: Basophils Absolute Auto 0.1 X10*3/uL (0.0-0.2); Basophils Percent Auto 0.6 % (0-2); Eosinophils Absolute Auto 0.2 X10*3/uL (0.0-0.4); Eosinophils Percent Auto 2.3 % (0-4); Hematocrit 36.1 % (37.0-47.0); Hemoglobin 11.6 g/dl (12.0-16.0); Imm Gran Abs Auto 0.02 X10*3/uL (0.00-0.03); Imm Gran Pct Auto 0.3 % (0.0-0.4); Lymphocytes Absolute Auto 2.5 X10*3/uL (1.2-4.9); Lymphocytes Percent Auto 31.8 % (20-40); Mean Corpuscular HGB Conc 32.1 g/dl (31.0-35.0); Mean Corpuscular Hemoglobin 30.4 pg (27.0-33.0); Mean Corpuscular Volume 94.8 fL (80.0-98.0); Monocytes Absolute Auto 0.6 X10*3/uL (0.1-1.2); Neutrophils Absolute Auto 4.5 x10*3/uL (2.0-8.3); Platelet Count 297 X10*3/uL (160-400); Red Blood Count 3.81 X10*6/uL (4.20-5.50); Red Cell Distribution Width 12.4 % (11.0-16.0); White Blood Count 7.9 X10*3/uL (4.8-10.8)
[2023-08-14 12:07] LABS: Anion Gap 13 (12-20); Blood Urea Nitrogen 18 mg/dL (9-16); Calcium 9.5 mg/dL (8.4-10.2); Carbon Dioxide 28 mmol/L (22-29); Chloride 106 mmol/L (96-108); Estimated Glomerular Filt Rate 34; Glucose Random 118 mg/dL (60-115); Potassium 4.1 mmol/L (3.3-5.1); Sodium 143 mmol/L (135-145)
== END 2023-08-14 10:21 | disposition home or self-care (01) ==
LOC: HO.HHCL 10:20
PROVIDERS: Visit Provider Internal Medicine Geriatric Medicine
DX: I12.9 Hypertensive chronic kidney disease with stage 1 through stage 4 chronic kidney disease, or unspecified chronic kidney disease (principal); I48.0 Paroxysmal atrial fibrillation; N18.30 Chronic kidney disease, stage 3 unspecified
CPT/HCPCS: 36415; 80048; 85025

== ENCOUNTER 2023-09-12 11:41 | Outpatient (REF) | payer MEDICARE, MEDICAID, SELFPAY ==
--- NOTE | ~2023-09-12 | XR_ITS ---
EXAMINATION: XR CHEST CLINICAL INFORMATION: History of one week of cough, wheezing. COMPARISON: 08/19/2020 TECHNIQUE: 2 views of the chest were obtained. FINDINGS: Lungs are well expanded. There appears to be mild hazy, streaky opacity in the lateral perihilar region of the left upper lobe. No pleural effusion. Cardiac silhouette is mildly enlarged. Mild atherosclerotic calcification of the aorta. The hilar contours are normal. No acute findings within the visualized degenerated spine. Prior right mastectomy. XR/XR chest 2V IMPRESSION: * Cardiomegaly without pulmonary edema or pleural effusion. * On the frontal radiograph, there appears to be an area of subtle hazy, streaky opacity in the left upper lobe, nonspecific, could represent atelectasis from airway inflammation (or mild pneumonia depending upon overall clinical context).
== END 2023-09-12 11:42 | disposition home or self-care (01) ==
LOC: HO.HHCX 11:41
PROVIDERS: Visit Provider Emergency Medicine
DX: R05.1 Acute cough (principal)
CPT/HCPCS: 71046

== ENCOUNTER 2023-12-27 08:04 | Outpatient (REF) | payer MEDICARE, MEDICAID, SELFPAY ==
[2023-12-27 11:33] LABS: MANUAL DIFF FLAG NO
[2023-12-27 11:41] LABS: Basophils Absolute Auto 0.1 X10*3/uL (0.0-0.2); Basophils Percent Auto 0.7 % (0-2); Eosinophils Absolute Auto 0.2 X10*3/uL (0.0-0.4); Eosinophils Percent Auto 2.7 % (0-4); Hematocrit 36.5 % (37.0-47.0); Hemoglobin 11.8 g/dl (12.0-16.0); Imm Gran Abs Auto 0.02 X10*3/uL (0.00-0.03); Imm Gran Pct Auto 0.2 % (0.0-0.4); Lymphocytes Percent Auto 37.2 % (20-40); Mean Corpuscular HGB Conc 32.3 g/dl (31.0-35.0); Mean Corpuscular Hemoglobin 30.6 pg (27.0-33.0); Mean Corpuscular Volume 94.8 fL (80.0-98.0); Mean Platelet Volume 10.4 fL (9.4-12.3); Monocytes Absolute Auto 0.6 X10*3/uL (0.1-1.2); Monocytes Percent Auto 6.9 % (2-11); Neutrophils Absolute Auto 4.2 x10*3/uL (2.0-8.3); Neutrophils Percent Auto 52.3 % (45-73); Platelet Count 300 X10*3/uL (160-400); Red Blood Count 3.85 X10*6/uL (4.20-5.50); Red Cell Distribution Width 12.9 % (11.0-16.0)
[2023-12-27 12:02] LABS: Alanine Aminotransferase 19 U/L (0-31); Albumin Level 4.5 g/dL (3.5-5.0); Alkaline Phosphatase 82 U/L (39-117); Anion Gap 14 (12-20); Aspartate Amino Transferase 20 U/L (5-31); Bilirubin Total 0.3 mg/dL (0.0-1.0); Blood Urea Nitrogen 25 mg/dL (9-16); Calcium 9.2 mg/dL (8.4-10.2); Carbon Dioxide 26 mmol/L (22-29); Chloride 108 mmol/L (96-108); Cholesterol 160 mg/dL (<200); Estimated Glomerular Filt Rate 40; Glucose Random 108 mg/dL (60-115); HDL Cholesterol 42 mg/dL (>40); LDL Cholesterol Calculated 75 mg/dL (<100); Potassium 4.1 mmol/L (3.3-5.1); Sodium 144 mmol/L (135-145); Triglycerides 217 mg/dL (<150)
== END 2023-12-27 08:05 | disposition home or self-care (01) ==
LOC: HO.HHCL 08:04
PROVIDERS: Visit Provider Internal Medicine Geriatric Medicine
DX: I12.9 Hypertensive chronic kidney disease with stage 1 through stage 4 chronic kidney disease, or unspecified chronic kidney disease (principal); N18.30 Chronic kidney disease, stage 3 unspecified; I48.0 Paroxysmal atrial fibrillation; E78.00 Pure hypercholesterolemia, unspecified
CPT/HCPCS: 36415; 80053; 80061; 85025

== ENCOUNTER 2024-07-09 09:36 | Outpatient (REF) | payer MEDICAID, SELFPAY ==
[2024-07-09 11:25] LABS: MANUAL DIFF FLAG NO
[2024-07-09 11:30] LABS: Basophils Percent Auto 0.6 % (0-2); Eosinophils Absolute Auto 0.2 X10*3/uL (0.0-0.4); Eosinophils Percent Auto 2.6 % (0-4); Hematocrit 36.8 % (37.0-47.0); Hemoglobin 11.7 g/dl (12.0-16.0); Imm Gran Abs Auto 0.02 X10*3/uL (0.00-0.03); Imm Gran Pct Auto 0.3 % (0.0-0.4); Lymphocytes Absolute Auto 2.4 X10*3/uL (1.2-4.9); Mean Corpuscular HGB Conc 31.8 g/dl (31.0-35.0); Mean Corpuscular Hemoglobin 29.5 pg (27.0-33.0); Mean Corpuscular Volume 92.7 fL (80.0-98.0); Mean Platelet Volume 10.6 fL (9.4-12.3); Monocytes Absolute Auto 0.5 X10*3/uL (0.1-1.2); Monocytes Percent Auto 6.8 % (2-11); Neutrophils Absolute Auto 3.5 x10*3/uL (2.0-8.3); Neutrophils Percent Auto 53.7 % (45-73); Platelet Count 295 X10*3/uL (160-400); Red Blood Count 3.97 X10*6/uL (4.20-5.50); Red Cell Distribution Width 12.8 % (11.0-16.0); White Blood Count 6.6 X10*3/uL (4.8-10.8)
[2024-07-09 12:07] LABS: Alanine Aminotransferase 18 U/L (0-31); Albumin Level 4.2 g/dL (3.5-5.0); Alkaline Phosphatase 81 U/L (39-117); Anion Gap 12 (12-20); Aspartate Amino Transferase 30 U/L (5-31); Bilirubin Total 0.4 mg/dL (0.0-1.0); Blood Urea Nitrogen 14 mg/dL (9-16); Calcium 9.3 mg/dL (8.4-10.2); Carbon Dioxide 26 mmol/L (22-29); Chloride 109 mmol/L (96-108); Estimated Glomerular Filt Rate 43; Glucose Random 130 mg/dL (60-115); Potassium 3.8 mmol/L (3.3-5.1); Sodium 143 mmol/L (135-145); Uric Acid 7.1 mg/dL (2.4-5.7)
== END 2024-07-09 09:37 | disposition home or self-care (01) ==
LOC: HO.HHCL 09:36
PROVIDERS: Visit Provider Internal Medicine Geriatric Medicine
DX: M10.30 Gout due to renal impairment, unspecified site (principal); M10.371 Gout due to renal impairment, right ankle and foot
CPT/HCPCS: 36415; 80053; 84550; 85025

== ENCOUNTER 2024-08-19 10:09 | Outpatient (REF) | payer MEDICAID, SELFPAY ==
[2024-08-19 11:04] LABS: MANUAL DIFF FLAG NO
[2024-08-19 11:14] LABS: Basophils Absolute Auto 0.1 X10*3/uL (0.0-0.2); Basophils Percent Auto 0.8 % (0-2); Eosinophils Absolute Auto 0.2 X10*3/uL (0.0-0.4); Eosinophils Percent Auto 3.2 % (0-4); Hematocrit 38.4 % (37.0-47.0); Hemoglobin 12.5 g/dl (12.0-16.0); Imm Gran Abs Auto 0.01 X10*3/uL (0.00-0.03); Imm Gran Pct Auto 0.2 % (0.0-0.4); Lymphocytes Absolute Auto 2.3 X10*3/uL (1.2-4.9); Lymphocytes Percent Auto 34.9 % (20-40); Mean Corpuscular HGB Conc 32.6 g/dl (31.0-35.0); Mean Corpuscular Volume 92.1 fL (80.0-98.0); Mean Platelet Volume 10.5 fL (9.4-12.3); Monocytes Absolute Auto 0.5 X10*3/uL (0.1-1.2); Monocytes Percent Auto 7.5 % (2-11); Neutrophils Absolute Auto 3.5 x10*3/uL (2.0-8.3); Neutrophils Percent Auto 53.4 % (45-73); Platelet Count 276 X10*3/uL (160-400); Red Blood Count 4.17 X10*6/uL (4.20-5.50); Red Cell Distribution Width 13.4 % (11.0-16.0); White Blood Count 6.5 X10*3/uL (4.8-10.8)
[2024-08-19 11:55] LABS: Anion Gap 11 (12-20); Blood Urea Nitrogen 16 mg/dL (9-16); Calcium 9.1 mg/dL (8.4-10.2); Carbon Dioxide 28 mmol/L (22-29); Chloride 107 mmol/L (96-108); Estimated Glomerular Filt Rate 39; Glucose Random 108 mg/dL (60-115); Potassium 3.8 mmol/L (3.3-5.1); Sodium 142 mmol/L (135-145); Uric Acid 5.7 mg/dL (2.4-5.7)
== END 2024-08-19 10:10 | disposition home or self-care (01) ==
LOC: HO.HHCL 10:09
PROVIDERS: Visit Provider Internal Medicine Geriatric Medicine
DX: I12.9 Hypertensive chronic kidney disease with stage 1 through stage 4 chronic kidney disease, or unspecified chronic kidney disease (principal); N18.30 Chronic kidney disease, stage 3 unspecified; M10.30 Gout due to renal impairment, unspecified site
CPT/HCPCS: 36415; 80048; 84550; 85025

== ENCOUNTER 2025-01-09 08:42 | Outpatient (REF) | payer MEDICAID, SELFPAY ==
--- OUTSIDE RECORDS SUMMARY | 2025-01-09 08:53 | XMS_ITS | Encounter Summary ---
Author Organization [employer] Address [address] [place] [address] [address] [place] [address] Care Team Providers Care Drum Printer Name Role Phone Name, Landry BETANCUR Primary Care Provider [phone] Mabel Gambino PharmD Unavailable [phone] Encounter Details Date Type Department Care Team (Late st Contact Info) Description 08/14/2022 Orders Only [facility] PEDS [address] [place], [place] [phone] No Roberts LPN Social History Tobacco Use Types Packs/Day Years Used Date Smoking Tobacco: Never Assessed Comments Unknown Sex and Gender Information Value Date Recorded Sex Assigned at Female 07/03/2022 10:14 AM EDT Legal Sex Female 10:14 AM EDT Gender Identity Female 07/03/2022 10:14 AM EDT Sexual Orientation Straight 07/03/2022 10 :14 AM EDT documented as of this encounter Plan of Treatment Upcoming Encounters Date Type Department Care Team (Late st Contact Info) Description 02/13/2025 10:00 AM EDT Telemedicine [facility] [address] [place] [phone] Afia Morrison, ISABEL 02/16/2025 9:00 AM EDT Medication Management [facility] [address] [place] [address] [phone] Mabel Gambino, PharmD [address] [place] [address] documented as of this encounter Visit Diagnoses Not on filedocumented in this encounter Care Teams Drum Printer Relationship Specialty Start Date End Date Name, MD Landry [address] [place] [address] PCP - General Family Medicine 09/14/15 Mabel Gambino PharmD [address] [place] [address] Pharmacist Internal Medicine 09/06/21 documented as of this encounter
--- OUTSIDE RECORDS SUMMARY | 2025-01-09 08:53 | XMS_ITS | Encounter Summary ---
Author Organization [facility] Address [address] [facility] [address] [place] [address] Phone Care Team Providers Care Newsstand Vendor Name Role Phone Name, Landry BETANCUR Primary Care Provider [phone] Reason for Visit * Reason Comments Med Refill Encounter Details Date Type Department Care Team (Late Contact Info) Description 09/15/2024 Refill [facility] [address] [facility] [address] [place] [address] Charli Clark MD [address] [phone] Social History Tobacco Use Types Packs/Day Years Used Date Smoking Tobacco: Never Alcohol Use Standard Drinks/Week Comments No 0 (1 standard drink = 0.6 oz pur e alcohol) Comments Unknown Sex and Gender Information Value Date Recorded Sex Assigned at Not on file Legal Sex Female 4:45 PM EST Gender Identity Not on file Sexual Orientation Not on file documented as of this encounter Plan of Treatment Upcoming Encounters Date Type Department Care Team (Late Contact Info) Description 07/13/2025 3:30 PM EST Office Visit [facility] [address] [place] [address] Charli Clark MD [address] [phone] documented as of this encounter Visit Diagnoses Not on filedocumented in this encounter Care Teams Newsstand Vendor Relationship Specialty Start Date End Date Name, MD Landry [address] [place] [address] [phone] PCP - General 09/13/20 documented as of this encounter
--- OUTSIDE RECORDS SUMMARY | 2025-01-09 08:53 | XMS_ITS | Encounter Summary ---
Author Organization [employer] Address [address] [place] [address] 7[address] [place] [address] Care Team Providers Care Sales Operations Manager Name Role Phone Name, Landry BETANCUR Primary Care Provider [phone] Mabel Gambino PharmD Unavailable [phone] Reason for Visit * Reason Comments Med Refill Encounter Details Date Type Department Care Team (Late st Contact Info) Description 05/16/2023 Refill [facility]INE [address] [place] [phone] Name, MD Landry [address] [place] [phone] Social History Tobacco Use Types Packs/Day Years Used Date Smoking Tobacco: Never Smokeless Tobacco: Never Alcohol Use Standard Drinks/Week Comments Never 0 (1 standard drink = 0.6 oz pur e alcohol) Depression Answer Date Recorded Patient Health Questionnaire-9 Score 0 12/13/2022 Depression Answer Date Recorded Patient Health Questionnaire-2 Score 0 12/13/2022 Comments Unknown Sex and Gender Information Value Date Recorded Sex Assigned at Female 07/03/2022 10:14 AM EDT Legal Sex Female 10:14 AM EDT Gender Identity Female 07/03/2022 10:14 AM EDT Sexual Orientation Straight 07/03/2022 10 :14 AM EDT documented as of this encounter Plan of Treatment Upcoming Encounters Date Type Department Care Team (Late st Contact Info) Description 02/13/2025 10:00 AM EDT Telemedicine [facility] [address] [place] [address] [phone] Afia Morrison RN 02/16/2025 9:00 AM EDT Medication Management [facility] [address] [place] [phone] Mabel Gambino PharmD [address] [place] [address] documented as of this encounter Goals Goal Patient Goal Type Associated Problems Recent Progress Patient-Stated? Author Blood Pressure < 140/90 Blood Pressure 130/62( 025 9:12 AM EDT) No Mabel Gambino, PharmD Record your blood pressure once a week Blood Pressure No Mabel Gambino PharmD documented as of this encounter Visit Diagnoses Not on filedocumented in this encounter Additional Health Concerns Assessment Noted Time PHQ-9 Depression Total Score: 0 12/14/19 23 3:13 PM EDT documented as of this encounter Care Teams Sales Operations Manager Relationship Specialty Start Date End Date Name, MD Landry [address] [place] [address] PCP - General Family Medicine 09/14/15 Mabel Gambino, PharmD [address] [place] [address] Pharmacist Internal Medicine 09/06/21 documented as of this encounter
--- OUTSIDE RECORDS SUMMARY | 2025-01-09 08:53 | XMS_ITS | Encounter Summary ---
Author Organization [employer] Address [address] [place] [address] [address] [place] [address] Care Team Providers Care Log Hooker Name Role Phone Name, Landry BETANCUR Primary Care Provider [phone] Mabel Gambino PharmD Unavailable Reason for Visit * Reason Comments Med Refill Encounter Details Date Type Department Care Team ([facility] Contact Info) Description 09/22/2022 Refill [facility] MED & PEDS [address] [place], [place] [phone] Name, MD Landry [address] [place] [phone] Chronic insomnia Social History Tobacco Use Types Packs/Day Years Used Date Smoking Tobacco: Never Assessed Comments Unknown Sex and Gender Information Value Date Recorded Sex Assigned at Female 07/03/2022 10:14 AM EDT Legal Sex Female 10:14 AM EDT Gender Identity Female 07/03/2022 10:14 AM EDT Sexual Orientation Straight 07/03/2022 10 :14 AM EDT COVID-19 Exposure Response Date Recorded In the last 10 days, have yo u been in contact with someone who was confirmed or suspected to have Coronavirus/COVID-19? No / Unsure 08/24/2022 2:00 PM EST documented as of this encounter Plan of Treatment Upcoming Encounters Date Type Department Care Team ([facility] Contact Info) Description 02/13/2025 10:00 AM EDT Telemedicine [facility] MEDICINE [address] [place] [address] [phone] Afia Morrison RN 02/16/2025 9:00 AM EDT Medication Management [address] [address] Mabel Gambino PharmD [address] [place] [address] documented as of this encounter Visit Diagnoses Diagnosis Chronic insomnia Insomnia, unspecified documented in this encounter Care Teams Log Hooker Relationship Specialty Start Date End Date Name, MD Landry [address] [place] [address] PCP - General Family Medicine 09/14/15 Mabel Gambino PharmD [address] [place] [address] Pharmacist Internal Medicine 09/06/21 documented as of this encounter
--- OUTSIDE RECORDS SUMMARY | 2025-01-09 08:53 | XMS_ITS | Encounter Summary ---
Author Organization [facility] Address [address] [place] [phone] Phone Care Team Providers Care Trouble Tracer Name Role Phone Name, Landry BETANCUR Primary Care Provider [phone] Reason for Visit * Reason Comments Stage 3b chronic kidney disease Encounter Details Date Type Department Care Team ([facility] st Contact Info) Description 01/05/2025 2:45 PM EDT Office Visit [facility] [address] [place] [id number] Charli Clark MD [phone] [phone] Stage 3b chronic kidney disease (HCC) (Primary Dx); Renal osteodystrophy; Hypertensive disorder Social History Tobacco Use Types Packs/Day Years [...] on file documented as of this encounter Last Filed Vital Signs Vital Sign Reading Time Taken Comments Blood Pressure 134/90 01/05/2025 2:25 PM EDT Pulse 95 01/05/2025 2:25 PM EDT Temperature - - Respiratory Rate - - Oxygen Saturation 97% 01/05/2025 2:25 PM EDT Inhaled Oxygen Concentration - - Weight 77.5 kg (170 lb 12.8 oz) 01/05/2025 2:25 PM EDT Height - - Body Mass Index 31.24 11/17/2019 12:00 PM EDT documented in this encounter Patient Instructions * Patient Instructions* Charli Clark MD - 01/05/2025 2:45 PM EDT No NSAIDS - Do not take non-steroidal anti-inflammatory medications (NSAIDS) such as Ibuprofen (Advil, Motrin, etc), Naproxen (Aleve, etc), Celecoxib (Celebrex) or Ketoprofen. These common arthritis medications can cause permanent kidney damage or worsen your kidney damage. For mild occasional pain, Acetaminophen (Tylenol, etc) is safe for your kidneys. Sodium and Your CKD Diet: How to Spice Up Your Cooking What is sodium? Sodium is a mineral found naturally in foods and is the major part of table salt. What are the effects of eating too much sodium? When your kidneys are not healthy, extra sodium and fluid build up in your body. This can cause swollen ankles, puffiness, a rise in blood pressure, shortness of breath, and/or fluid around your heart and lungs. See the following table for suggestions on how to reduce sodium in your diet. LIMIT THE [AMOUNT OF... FOOD TO LIMIT BECAUSE OF THEIR HIGH SODIUM CONTENT ACCEPTABLE SUBSTITUTES SALT & SALT SEASONINGS Table salt Seasoning salt Garlic salt Onion salt Celery salt Lemon pepper Lite salt Meat tenderizer Bouillon cubes Flavor enhancers Fresh garlic, fresh onion, garlic powder, onion powder, black [pepper, lemon juice, low-sodium/salt-free seasoning blends, vinegar SALTY FOODS Barbecue sauce Steak sauce Soy sauce Teriaky sauce Oyster sauce Salted Snacks such as Crackers Potato chips [place] chips Pretzels Tortilla chips Nuts Popcorn [place] seeds Homemade or low- sodium sauces and salad dressings; Vinegar, dry mustard, unsalted popcorn, pretzels, tortilla or corn chips Cured Foods Ham Salt pork Pena Sauerkraut Pickles, pickle relish Lox & Chin Olives Fresh beef, veal, pork, poultry, fish, eggs [place] MEATS Hot Dogs Cold cuts, deli meats Pastrami Sausage Corned beef Spam Low-salt deli meats PROCESSED FOODS Buttermilk Cheese Canned: Soups Tomato products Vegetable juices Canned vegetables Convenience Foods such as: TV Dinners Canned raviolis [place] Macaroni & Cheese Spaghetti Frozen prepared foods Fast foods Natural cheese (1-2 oz Per week) Homemade or jairo,1- sodium soups, canned food without added salt Homemade casseroles without added salt, made with fresh or raw vegetables, fresh meat, timur, pasta, or unsalted canned vegetables Some salt or sodium is needed for body water balance. But when your kidneys lose the ability to control sodium and water balance, you may experience the following: thirst fluid gain high blood pressure discomfort during dialysis By using less sodium in your diet, you can control these problems. Hints to keep your sodium intake down Cook with herbs and spices instead of salt. (Refer to Spice Up Your Cooking section for further suggestions.) Read food labels and choose those foods low in sodium. Avoid salt substitutes and specialty low-sodium foods made with salt substitutes because they are high in potassium. When eating out, ask for meat or fish without salt. Ask for gravy or sauce on the side; these may contain large amounts of salt and should be used in small amounts . Limit use of canned, processed and frozen foods. Some information about reading labels Understanding the terms: Sodium Free - Only a trivial amount of sodium per serving. Very Low Sodium - 35 mg or less per serving. Low Sodium - 140 mg or less per serving. Reduced Sodium - Foods in which the level of sodium is reduced by 25%. Light or Lite in Sodium - Foods in which the sodium is reduced by at least 50% . Simple rule of thumb : If salt is listed in the first five ingredients, the item is probably too high in sodium to use. All food labels now have milligrams (mg) of sodium listed. Follow these steps when reading the sodiwn information on the label: 1. Know how much sodium you are allowed each day. Remember that there are 1000 milligrams (mg) in 1gram. For [id number], if your diet prescription is 2 grams of sodium , your limit is 2000 milligrams per day. Consider the sodium value or other food to be eaten during the day. 2. Look at the package label. Check the serving size. Nutrition values are expressed per jaylin g. How does this compare to your total daily allowance? If the sodium level is 500 mg or more per serving, the item is not a good choice. 3. Compare labels of similar products. Select the lowest sodium level for the same serving size. How to Spice Up Your Cooking Giving up salt does not mean giving up flavor. Learn to season your food with herbs and spices. Be creative and experiment for a new and exciting flavor. What kinds of spices and herbs should I use instead of salt to add flavor? Try the following spices with the foods listed. Allspice: Use with beef, fish, beets, cabbage, canots, peas, fruit. Basil: Use with beef, pork, most vegetables. [place]: Use with beef, pork, most vegetables. [place]: Use with beef, pork, green beans, cauliflower, cabbage, beets, asparagus, and in dips and marinades. Cardamom: Use with fruit and in baked goods. [place]on: Use with beef, chicken, pork, fish, green beans, carrots and in marinades. Dill: Use with beef, chicken, green beans, cabbage, carrots, peas and in dips. Jie: Use with beef, chicken, pork, green beans, cauliflower and eggplant. Marjoram: Use with beef, chicken, pork, green beans, cauliflower and eggplant. Viola: Use with chicken, pork, cauliflower, peas and in marinades. Thyme: Use with beef, chicken, pork, fish, green beans, beets and carrots. Chucho: Use with chicken, pork, eggplant and in dressing. [place]arr[place]: Use with fish, chicken, asparagus, beets, cabbage, cauliflower and in marinades. Tips for cooking with herbs and spices Purchase spices and herbs in small amounts . When they sit on the shelf for years they lose their flavor. Use no more than ?? teaspoon of dried spice (?? of fresh) per pound of meat. Add ground spices to food about 15 minutes before the end of the cooking period. Add whole spices to food at least one hour before the end of the cooking period. Combine herbs with oil or butter, set for 30 minutes to bring out their flavor, then brush on foodswhile they cook, or brush meat with oil and sprinkle herbs one hour before coolcing. Crush dried herbs before adding to foods. Can I use salt substitutes? Caution! If you are told to limit potassium in your diet, be very cautious about using salt substitutes because most of them contain some form of potassium. Check with your doctor or dietitian beforeusing and salt substitute. [place] and create your own seasoning containing those spices that you like. If you would like to become a volunteer and find out more about what's happening where you live, contact your local [facility] Affiliate. Blood pressure monitoring education: Monitor home blood pressure values after sitting for 5 minutes with back and arm support. Keep a log. Bring your log and blood pressure cuff to your next visit. documented in this encounter Progress Notes * Charli Clark MD - 01/05/2025 2:45 PM EDT Images from the original note were not included. Patient Name: Debora Caicedo, Female Date of : 1950, 74 y.o. Date: 01/05/25 [] New Patient [x] Established Patient [] New Hospital Follow Up [] Established Hospital Follow Up [] Telemed Visit [] H&P Referring MD: Landry Barrett MD PCP: Landry Barrett MD Reason For Visit: CKD 3, HTN Debora Caicedo is a 74 y.o. female seen today in f/u regarding stage 3 CKD on backdrop of HTN. Since lasrt seen gout attack and responded to medications Leg swelling reslved on decr norvasc Getting HBPs done routinely and 120-130/70s Meds as noted Last Scr 1.33 ( eGFR 39) [id number] Denies chest pain or shortness of breath. No blood in the urine or difficulties urinating. Complains of mild arthritic complaints but avoids use of NSAIDs. The following portions of the patient's chart were reviewed in this encounter and updated as appropriate: Allergies Meds Constitutional: Negative for chills and fever. Respiratory: Negative for cough and shortness of breath. Cardiovascular: Negative for chest pain, palpitations and leg swelling. Gastrointestinal: Negative for abdominal pain, nausea and vomiting. Genitourinary: Negative for dysuria, frequency, hematuria and urgency. Full 13 point review of systems unremarkable except as noted above. Past Medical History: Diagnosis Date Acute injury of kidney (HCC) Anxiety disorder Atrial fibrillation (HCC) Depressive disorder Essential hypertension Gastroesophageal reflux disease Hyperlipidemia Malignant tumor of breast (HCC) Osteoarthritis both knees Stage 3 chronic kidney disease Stroke (HCC) Past Surgical History: Procedure Laterality Date APPENDECTOMY KNEE ARTHROPLASTY Bilateral OTHER SURGICAL HISTORY spinal fusion 3-6 Social History Tobacco Use Smoking status: Never Smokeless tobacco: Not on file Substance Use Topics Alcohol use: No No family history on file. Current Outpatient Medications Medication Sig Dispense Refill amLODIPine (NORVASC) 5 MG tablet TAKE 1 TABLET BY MOUTH AT BEDTIME 90 tablet 0 anastrozole (ARIMIDEX) 1 MG chemo tablet Take 1 tablet by mouth 1 (one) time each day atorvastatin (LIPITOR) 40 MG tablet Take 40 mg by mouth 1 (one) time each day Belsomra 5 MG tablet TAKE 1 TABLET BY MOUTH AT BEDTIME WITHIN 30 MINUTES OF BEDTIME. LAURO KAMARO SI SE VA A GILLIANR EN 7 HORAS O MAS calcium carbonate-vitamin D 600-200 MG-UNIT per tablet Take 1 tablet by mouth carvedilol (COREG) 6.25 MG tablet Take 6.25 mg by mouth in the morning and 6.25 mg in the evening. Take with meals. chlorthalidone 25 MG tablet Take 25 mg by mouth 1 (one) time each day 12.5 mg cholecalciferol (VITAMIN D-3) 1.25 MG (83216 UT) capsule Take 50,000 Units by mouth 1 (one) time per week diphenhydrAMINE (BENADRYL) 25 MG capsule Take 25 mg by mouth every 6 (six) hours if needed for itching Eliquis 2.5 MG tablet Take 2.5 mg by mouth 2 (two) times a day hydrALAZINE 100 MG tablet TAKE 1 TABLET BY MOUTH TWICE DAILY IN THE MORNING AND IN THE EVENING 180 tablet 0 hydrALAZINE 50 MG tablet Take 50 mg by mouth in the morning and 50 mg in the evening and 50 mg before bedtime. lisinopril 40 MG tablet loratadine (CLARITIN) 10 MG tablet Take 10 mg by mouth 1 (one) time each day pantoprazole (PROTONIX) 20 MG EC tablet Take 1 tablet by mouth 1 (one) time each day primidone (MYSOLINE) 50 MG tablet Take 50 mg by mouth 2 (two) times a day sertraline (ZOLOFT) 50 MG tablet Take 1 tablet by mouth 1 (one) time each day allopurinol (ZYLOPRIM) 100 MG tablet Take 50 mg by mouth every morning colchicine 0.6 MG tablet Take 0.6 mg by mouth fluticasone (FLONASE) 50 MCG/ACT nasal spray INSTILL 2 SPRAYS IN EACH NOSTRIL ONCE DAILY IN THE MORNING No current facility-administered medications for this visit. Allergies Allergen Reactions Trazodone Aspirin Rash Rash and SOB Mirtazapine Rash Spironolactone Hives and Rash Objective: Vitals: 01/05/25 1425 BP: 134/90 BP Location: Left upper arm Patient Position: Sitting BP Cuff Size: Adult Pulse: 95 SpO2: 97% Weight: 170 lb 12.8 oz (77.5 kg) 134/78 Vitals reviewed. Constitutional: She appears well-developed. No distress. Cardiovascular: Normal rate, regular rhythm and normal heart sounds. She exhibits no edema. Pulmonary/Chest: Effort normal and breath sounds normal. No respiratory distress. Abdominal: Soft. There is no abdominal tenderness. No hernia. Skin: Skin is warm and dry. Psychiatric: She has a normal mood and affect. Her behavior is normal. eGFR Date Value Ref Range Status 11/30/2021 50 Final eGFR Non- Date Value Ref Range Status 01/11/2022 42 (L) > OR = 60 mL/min/1.73m2 Final Chemistry Lab Units 08/19/24 1015 07/09/24 0940 12/27/23 0806 08/14/23 1025 CREATININE mg/dL 1.33 1.23 1.31 1.51* BUN mg/dL 16 14 25* 18* GLUCOSE mg/dL 108 130* 108 118* POTASSIUM mmol/L 3.8 3.8 4.1 4.1 SODIUM mmol/L 142 143 144 143 CO2 mmol/L 28 26 26 28 CHLORIDE mmol/L 107 109* 108 106 ALBUMIN g/dL -- 4.2 4.5 -- BILIRUBIN TOTAL mg/dL -- 0.4 0.3 -- AST U/L -- 30 20 -- ALT U/L -- 18 19 -- Bone Mineral Lab Units 08/19/24 1015 07/09/24 0940 12/27/23 0806 08/14/23 1025 CALCIUM mg/dL 9.1 9.3 9.2 9.5 ALK PHOS U/L -- 81 82 -- No lab exists for component: SPECGRAV , GLUCOSEUR , BILIRUBINUR , RBCUR , UPROTEIN , LEUKOCYTESUR , NITRITE PLAN: Assessment & Plan 74 Y/O hF STAGE 3 CKD HYPERTENSIVE PATIENT WITH DJD AND H/O NSAID USE AND H/O COVID INFECTION 1. CKD 3: most c/w combination of HTN, age and NSAID 2. HTN: boderline controlled; goal 120/80 3. DJD: need to avoid NSAID 4. Labile renal func: Scr 1.1 to 1.75 range 5. Metabolic Bone Disease of CKD: cont to track CA, Phos, HCO3, PTH and vit D levels and treat accordingly 6. Ankle edema: resolved 7. Gout attack: reoslved w med PLAN: no med changes; check PTH/vit D; avoid NSAIDs; hold off adding SGLT2i d/t absence of signif Uprot but will recehck Uprot and if incr then start 1. Stage 3b chronic kidney disease (HCC) 2. Renal osteodystrophy 3. Hypertensive disorder Orders Placed This Encounter PTH, Intact Renal Function Panel Urinalysis with microscopic Urine Albumin / Creatinine Ratio Protein, Total, Random Urine w/Creatinine (Protein/Creat Ratio) Vitamin D 25 Hydroxy CBC Phosphorus Magnesium Albumin Calcium Return in about 6 months (around 07/08/2025). Charli Clark MD documented in this encounter Plan of Treatment Upcoming Encounters Date Type Department Care Team (Late st Contact Info) Description 07/13/2025 3:30 PM EST Office Visit [facility] [address] [place] [phone] Charli Clark MD [address] [facility] [address] [place] [address] Scheduled Orders Name Type Priority Associated Diagnoses Orde r Schedule PTH, Intact Lab Routine Stage 3b chronic kidney disease (HCC) Renal osteodystrophy Hypertensive disorder Expected: 01/05/2025, Expires: 02/05/2026 Renal Function Panel Lab Routine Stage 3b chronic kidney disease (HCC) Renal osteodystrophy Hypertensive disorder Expected: 01/05/2025, Expires: 02/05/2026 Urinalysis with microscopic Lab Routine Stage 3b chronic kidney disease (HCC) Renal osteodystrophy Hypertensive disorder Expected: 01/05/2025, Expires: 02/05/2026 Urine Albumin / Creatinine Ratio Lab Routine Stage 3b chronic kidney disease (HCC) Renal osteodystrophy Hypertensive disorder Expected: 01/05/2025, Expires: 02/05/2026 Protein, Total, Random Urine w/Creatinine (Protein/Creat Ratio) Lab Routine Stage 3b chronic kidney disease (HCC) Renal osteodystrophy Hypertensive disorder Expected: 01/05/2025, Expires: 02/05/2026 Vitamin D 25 Hydroxy Lab Routine Stage 3b chronic kidney disease (HCC) Renal osteodystrophy Hypertensive disorder Expected: 01/05/2025, Expires: 02/05/2026 CBC Lab Routine Stage 3b chronic kidney disease (HCC) Renal osteodystrophy Hypertensive disorder Expected: 01/05/2025, Expires: 02/05/2026 Phosphorus Lab Routine Stage 3b chronic kidney disease (HCC) Renal osteodystrophy Hypertensive disorder Expected: 01/05/2025, Expires: 02/05/2026 Magnesium Lab Routine Stage 3b chronic kidney disease (HCC) Renal osteodystrophy Hypertensive disorder Expected: 01/05/2025, Expires: 02/05/2026 Albumin Lab Routine Stage 3b chronic kidney disease (HCC) Renal osteodystrophy Hypertensive disorder Expected: 01/05/2025, Expires: 02/05/2026 Calcium Lab Routine Stage 3b chronic kidney disease (HCC) Renal osteodystrophy Hypertensive disorder Expected: 01/05/2025, Expires: 02/05/2026 documented as of this encounter Visit Diagnoses Diagnosis Stage 3b chronic kidney disease (HCC)- Primary Renal osteodystrophy Hypertensive disorder documented in this encounter Care Teams Trouble Tracer Relationship Specialty Start Date End Date Name, MD Landry [address] [place] [address] PCP - General 09/13/20 documented as of this encounter
--- OUTSIDE RECORDS SUMMARY | 2025-01-09 08:53 | XMS_ITS | Clinical Summary ---
Author Organization [employer] Address [address] [place] [address] [address] [place] [address] Care Team Providers Care Aircraft Maintenance Engineer Name Role Phone Name, Landry BETANCUR Primary Care Provider [phone] Mabel Gambino PharmD Unavailable [phone] Allergies Active Allergy Reactions Criticality Noted Date Comments Aspirin Anaphylaxis High 02/12/2009 Rash and SOB Mirtazapine Rash Low 02/07/2019 Spironolactone Hives,Rash Low 02/07/2019 Trazodone High 10/07/2018 Facial swelling Medications diphenhydrAMINE (BENADryl) 25 MG tablet OTC PER PATIENT Active cyanocobalamin (Vitamin B-12) 50 MCG tablet OTC PER PATIENT Active Neomycin-Bacitr acin-Polymyxin (First Aid Antibiotic) [phone] ointment apply once a day to the affected skin 28 g 2 08/14/20 23 Active Ventolin HFA 108 (90 Base) MCG/ACT inhaler INHALE 2 PUFFS BY MOUTH EVERY 4 TO 6 HOURS NEEDED 18 g 1 10/23/19 24 Active sertraline (Zoloft) 100 MG tablet TAKE 1 TABLET BY MOUTH EVERY MORNING 30 tablet 11 03/07/20 24 Active amLODIPine (Norvasc) 5 MG tablet Take 5 mg by mouth at bedtime. 02/28/20 24 Active Calcium Carb-Cholecalci ferol 600-5 MG-MCG tablet Take 1 tablet by mouth 2 times daily. MARIANN 1 TABLET BY MOUTH TWICE DAILY AT NOON AND IN THE EVENING 180 tablet 3 06/13/20 24 025 Active Eliquis 2.5 MG tablet TAKE 1 TABLET BY MOUTH TWICE DAILY IN THE MORNING AND AT BEDTIME 180 tablet 2 06/25/20 24 Active pantoprazole (ProtoNix) 20 MG EC tabletIndicatio ns:Heartburn TAKE 1 TABLET BY MOUTH EVERY MORNING 90 tablet 1 08/13/20 24 Active carvedilol (Coreg) 6.25 MG tabletIndicatio ns:Hypertension , unspecified type TAKE 1 TABLET BY MOUTH TWICE DAILY IN THE MORNING AND IN THE EVENING WITH FOOD 180 tablet 1 10/01/19 25 Active allopurinol (Zyloprim) 100 MG tablet TAKE 1/2 TABLET BY MOUTH EVERY MORNING 15 tablet 3 10/02/19 25 Active atorvastatin (Lipitor) 40 MG tabletIndicatio ns:High cholesterol TAKE 1 TABLET BY MOUTH EVERY EVENING 30 tablet 3 10/02/19 25 Active colchicine 0.6 MG tabletIndicatio ns:Gout due to renal impairment, unspecified chronicity, unspecified site TAKE 1 TABLET BY MOUTH EVERY MORNING 30 tablet 3 10/02/19 25 Active lisinopril 40 MG tabletIndicatio ns:Hypertension , unspecified type TAKE 1 TABLET BY MOUTH EVERY MORNING 30 tablet 3 10/02/19 25 Active hydrALAZINE (Apresoline) 50 MG tabletIndicatio ns:Hypertension , unspecified type TAKE 1 TABLET BY MOUTH THREE TIMES DAILY IN THE MORNING, EVENING, AND BEDTIME 90 tablet 5 10/31/19 25 Active cholecalciferol (Vitamin D-3) 25 MCG tabletIndicatio ns:Vitamin D deficiency TAKE 1 TABLET BY MOUTH EVERY MORNING 90 tablet 3 11/05/19 25 Active fluticasone (Flonase) 50 MCG/ACT nasal spray INSTILL 2 SPRAYS IN EACH NOSTRIL ONCE DAILY IN THE MORNING 16 g 2 11/29/19 25 Active loratadine (Claritin) 10 MG tabletIndicatio ns:Vitamin D deficiency TAKE 1 TABLET BY MOUTH AT BEDTIME 90 tablet 1 12/02/19 25 Active primidone (Mysoline) 50 MG tabletIndicatio ns:Hypertension , unspecified type TAKE 1 TABLET BY MOUTH TWICE DAILY IN THE MORNING AND AT BEDTIME 180 tablet 1 12/02/19 25 Active suvorexant (Belsomra) 5 MG tabletIndicatio ns:Chronic insomnia TAKE 1 TABLET BY MOUTH EVERY DAY 30 MINUTES BEFORE BEDTIME 30 tablet 12/24/19 25 Active oxyCODONE-aceta minophen (Percocet) 5-325 MG tabletIndicatio ns:Chronic pain syndrome Take 1 tablet by mouth every 8 (eight) hours if needed for severe pain for up to 28 days. 84 tablet 12/24/19 25 025 Active Spacer/Aero-Hol ding Chambers (OptiChamber Rita) misc 1 each every 4 (four) hours if needed (asthma). 1 each 09/12/19 24 025 Discontinued(Me d list cleanup (will not trigger notification to Pharmacy)) oxyCODONE-aceta minophen (Percocet) 5-325 MG tabletIndicatio ns:Chronic pain syndrome Take 1 tablet by mouth every 8 (eight) hours if needed for severe pain for up to 28 days. Do not start before November 14, 2024. 84 tablet 11/15/19 25 025 Discontinued(Re order (will not trigger notification to Pharmacy)) suvorexant (Belsomra) 5 MG tabletIndicatio ns:Chronic insomnia TAKE 1 TABLET BY MOUTH EVERY DAY 30 MINUTES BEFORE BEDTIME 30 tablet 11/11/19 25 025 Discontinued(Re order (will not trigger notification to Pharmacy)) Active Problems Problem Noted Date Diagnosed Date Mild persistent allergic asthma 09/24/2024 Hypertension 03/24/2024 Hypercholesterolemia 03/24/2024 Atrial fibrillation 09/28/2022 Carpal tunnel syndrome 09/28/2022 Essential tremor 09/28/2022 Gout due to renal impairment 09/28/2022 Renal osteodystrophy 03/09/2022 Allergic rhinitis 12/29/2021 Anemia 12/29/2021 Anxiety disorder 12/29/2021 Class 1 obesity 12/29/2021 Constipation 12/29/2021 Reflux gastritis 12/29/2021 Osteopenia 02/07/2019 Depressive disorder 10/07/2018 Insomnia 10/07/2018 Heartburn 08/23/2018 History of total knee arthroplasty 05/21/2018 History of right mastectomy 11/22/2017 Hypertriglyceridemia 02/22/2016 Stage 3 chronic kidney disease 02/22/2016 Primary osteoarthritis of both knees 09/24/2015 Resolved Problems Problem Noted Date Diagnosed Date Resolved Date Acute gout due to renal impa irment involving right foot 04/22/2024 07/03/2024 Assessment & Plan (04/22/2024 3:41 PM EDT): I will prescribe prednisone taper today F/u with PCP COVID-19 09/28/2022 07/03/2024 Injury of kidney 09/28/2022 07/03/2024 Postoperative pain 09/28/2022 Hypertensive disorder 12/29/20212023 Assessment & Plan (04/22/2024 3:36 PM EDT): Uncontrolled patient initially today with BP very high but she is completley asymptomatic, likely high due to acute pain Clonidine 0.2mg given today BP improved to 160/72mmg I advise low Na diet and weight reduction I refer her again to [facility] so she can be seen earlier F/u with PCP and nephrology Generalized obesity 12/29/2021 07/03/20 Osteoarthritis of left knee 12/29/2021 07/03/2024 Knee pain 05/21/2018 07/03/2024 Pain in unspecified knee 05/21/2018 Cough 12/19/2017 07/03/2024 Encounters Date Type Department Care Team Description 01/05/2025 Travel 12/23/2024 Refill [facility] [address] [place] [address] Landry Barrett MD Chronic insomnia 12/23/2024 Refill [facility] [address] [place] [address] Landry Barrett MD Chronic pain syndrome 12/01/2024 Refill [facility] [address] [place], [place] [phone] Landry Barrett MD Vitamin D deficiency; Hypertension, unspecified type 11/28/2024 Telephone [facility] [address] [place] [address] Mabel Gambino, PharmD 11/28/2024 Travel 11/28/2024 Refill [facility] [address] [place] [address] Landry Barrett MD 11/27/2024 Telephone [facility] [address] [place] [address] Landry Barrett MD 11/25/2024 Telephone [facility] [address] [place], [place] [phone] Julian Real MA may recalls 11/21/2024 Telephone [facility] [address] [place] [address] Charli Encinas, DMD 11/19/2024 Telephone [facility] [address] [place] [address] Landry Barrett MD TRIAGE NURSE 11/18/2024 Telephone [facility] [address] [place], [place] [phone] Landry Barrett MD PA 11/14/2024 Population Health Risk Score [facility] () Department [address] [place] [phone] Provider, Population Health Generic 11/10/2024 Telephone [facility] [address] [place] [address] Michell Carr RN 11/10/2024 Refill [facility] [address] [place] [address] Landry Barrett MD Chronic insomnia 11/10/2024 Refill [facility] [address] [place] [address] Landry Barrett MD Chronic pain syndrome 11/03/2024 Refill [facility] [address] [place], [place] [phone] Landry Barrett MD Vitamin D deficiency 10/30/2024 2:30 PM EST Office Visit [facility] [address] [place] [address] Eric Vargas, DMD Dental caries 10/30/2024 Refill [facility] [address] [place], [place] [phone] Mabel Gambino, PharmD Hypertension, unspecified type 10/27/2024 Telephone [facility] [address] [place] [address] Landry Barrett MD Referral 10/14/2024 Refill [facility] [address] [place], [place] [phone] Gisele Allen NP Chronic pain syndrome 10/14/2024 Refill [facility] [address] [place] [address] Name, MD Landry Chronic insomnia from Last 3 Months Immunizations Name Administration Dates Next Due Influenza High-dose Quadriva lent Preservative Free 08/14/2023,05/30/2022,05/10/2021 Influenza injectable quadriv alent IIV4 with preservative 06/26/2016 Influenza injectable quadriv alent preservative free 06/25/2017 Influenza, High Dose Seasona l, Preservative Free 05/21/2024,05/21/2019,05/21/2018 Influenza, IIV3, injectable 06/04/2015,0 05/12/2014,05/15/2013,06/24,05/03/2011,05/24/2010,05/31/2009 Influenza, Unspecified 05/30/2022,2020,06/04/2015,05/12,05/15/2013,06/24/2012,05/03/2011 ,05/24/2010,05/31/2009 Influenza, seasonal, injecta ble, preservative free 05/20/2020,09/17/2012 Pfizer Covid-19 Vaccine 12+ 09/05/2024 Pneumococcal Conjugate PCV 13 07/09/2017 Pneumococcal Conjugate PCV 20 12/05/2023 Pneumococcal Polysaccharide PPSV23 07/09/2018 RSV Bivalent 12/20/2023 TD (adult), 2 Lf tetanus tox oid, preservative free, adsorbed 08/24/2021 Tdap 05/06/2010 Zoster, Recombinant 02/09/2022,11/15/2021 Zoster, live 02/09/2022,11/15/2021 Social History Tobacco Use Types Packs/Day Years Used Date Smoking Tobacco: Never Smokeless Tobacco: Never Tobacco Cessation:Counseling Given: Not Answered Alcohol Use Standard Drinks/Week Comments Never 0 (1 standard drink = 0.6 oz pur e alcohol) Depression Answer Date Recorded Patient Health Questionnaire-9 Score 0 12/24/2023 Patient Health Questionnaire-9 Score 0 12/24/2023 Last PHQ-9: Questionnaire Data Not on file 0 12/24/2023 Housing Stability Answer Date Recorded What is your housing situation today? I have alex reyes 12/24/[address] you li ve. Do you have problems with any of the following? None of the above 12/24/2023 Food Insecurity Answer Date Recorded Within the past 12 months, y ou worried that your food would run out before you got money to buy more: Sometimes True 2023 Within the past 12 months,th e food you bought just didn't last and you didn't have enough money to get more: Sometimes True 01/09/2024 Transportation Answer Date Recorded In the past 12 months, has l ack of transportation kept you from medical appts, meetings, work or from getting things needed for daily living? No 12/24/2023 Utilities Answer Date Recorded In the past 12 months, has t he electric, gas, oil or water company threatened to shut off services in your home? No 12/24/2023 Depression Answer Date Recorded Patient Health Questionnaire-2 Score 0 12/24/2023 Comments Unknown Sex and Gender Information Value Date Recorded Sex Assigned at Female 07/03/2022 10:14 AM EDT Legal Sex Female 10:14 AM EDT Gender Identity Female 07/03/2022 10:14 AM EDT Sexual Orientation Straight 07/03/2022 10 :14 AM EDT Last Filed Vital Signs Vital Sign Reading Time Taken Comments Blood Pressure 130/62 01/05/2025 9:12 AM EDT Pulse 64 01/05/2025 9:12 AM EDT Temperature 34.7 ??C (94.4 ??F) 09/24/2024 10:[address] Respiratory Rate 20 09/24/2024 10:42 AM EST Oxygen Saturation 97% 09/24/2024 10:42 AM EST Inhaled Oxygen Concentration - - Weight 75.5 kg (166 lb 6.4 oz) 09/24/2024 10:42 AM EST Height 157.5 cm (5' 2 ) 09/24/2024 10:42 AM EST Body Mass Index 30.43 09/24/2024 10:42 AM EST Plan of Treatment Upcoming Encounters Date Type Department Care Team (Late st Contact Info) Description 02/13/2025 10:00 AM EDT Telemedicine [facility] [address] [place] [phone] Afia Morrison RN 02/16/2025 9:00 AM EDT Medication Management [facility] [address] [place] [address] Mabel Gambino, PharmD [address] [place] [address] Health Maintenance Due Date Last Done Comments CT Colonography 1949 Colonoscopy 1950 Dental Prophylaxis 1949 FIT 1950 Sigmoidoscopy 1950 Hepatitis C Screening 1967 Depression Screening 12/23/2024 12/24/2023, 12/24/19 24 FOBT 01/08/2025 01/09/2024 SDOH Screening 01/08/2025 01/09/2024 Alcohol/Substance Use Screening 03/24/2025 03/24/2024 Dental Oral Exam 04/30/2025 10/30/2024 Tobacco Screening 10/30/2025 10/30/2024 Dental X-Ray: Bitewings 10/31/2025 10/30/2024 Colorectal Cancer Screening 01/08/2027 FIT DNA/Cologuard 01/08/2027 01/09/2024, 01/09/2024 Dental X-Ray: Full Mouth 10/31/2027 10/30/2024 Lipid Panel 12/26/2028 12/27/2023, 12/02, 02/21/2022, Additional history exists DTaP/Tdap/Td Vaccines (3 - Td or Tdap) 08/24/2031 08/24/2021, 05/06/2010 Zoster Vaccines Completed 02/09/2022, 0605/2022, 11/15/2021, Additional history exists Pneumococcal Vaccine: 50+ Years Completed 12/05/2023, 07/09/2018, 07/09/2017 RSV Patients and Patients Aged 60 years or older Completed 12/20/2023 Influenza Vaccine Completed 05/21/2024, , 05/30/2022, Additional history exists COVID-19 Vaccine Completed 09/05/2024, , 08/24/2021, Additional history exists HIB Vaccines Aged Out No longer eligi ble based on patient's age to complete this topic HPV Vaccines Aged Out No longer eligi ble based on patient's age to complete this topic Hepatitis A Vaccines Aged Out No long er eligible based on patient's age to complete this topic Hepatitis B Vaccines Aged Out No long er eligible based on patient's age to complete this topic IPV Vaccines Aged Out No longer eligi ble based on patient's age to complete this topic Meningococcal Vaccine Aged Out No mary angelique eligible based on patient's age to complete this topic RSV under 20 months Aged Out No longe r eligible based on patient's age to complete this topic Rotavirus Vaccines Aged Out No longer eligible based on patient's age to complete this topic Goals Goal Patient Goal Type Associated Problems Recent Progress Patient-Stated? Author Blood Pressure < 140/90 Blood Pressure 130/62( 025 9:12 AM EDT) No Mabel Gambino PharmD Record your blood pressure once a week Blood Pressure No Mabel Gambino PharmD Procedures Procedure Name Priority Date/Time Associated Diagnosis Comments CASE PRESENTATION, DETAILED AND EXTENSIVE TREATMENT PLANNING Routine 10/30/2024 2:30 PM EST INTRAORAL - COMPLETE SERIES OF RADIOGRAPHIC IMAGES Routine 10/30/2024 2:30 PM EST PERIODIC ORAL EVALUATION - ESTABLISHED PATIENT Routine 10/30/2024 2:30 PM EST 28 O AMALGAM FILLING Routine 10/30/2024 12:00 AM EST 29 O AMALGAM FILLING Routine 10/30/2024 12:00 AM EST 5 MO AMALGAM FILLING Routine 10/30/2024 12:00 AM EST 1 O AMALGAM FILLING Routine 10/30/2024 1 2:00 AM EST 11 D AMALGAM FILLING Routine 10/30/2024 12:00 AM EST 10 ML COMPOSITE FILLING Routine 10/30/2024 12:00 AM EST 18,19,20,22,23,24,25, 26,27,30,31 PARTIAL DENTURE - RESIN Routine 10/30/2024 12:00 AM EST 2,3,4,8,12,13,14,15 PARTIAL DENTURE - RESIN Routine 10/30/2024 12:00 AM EST 32 EXTRACTION Routine 10/30/2024 12:00 AM EST 31 EXTRACTION Routine 10/30/2024 12:00 AM EST 30 EXTRACTION Routine 10/30/2024 12:00 AM EST 27 EXTRACTION Routine 10/30/2024 12:00 AM EST 26 EXTRACTION Routine 10/30/2024 12:00 AM EST 25 EXTRACTION Routine 10/30/2024 12:00 AM EST 24 EXTRACTION Routine 10/30/2024 12:00 AM EST 23 EXTRACTION Routine 10/30/2024 12:00 AM EST 22 EXTRACTION Routine 10/30/2024 12:00 AM EST 20 EXTRACTION Routine 10/30/2024 12:00 AM EST 19 EXTRACTION Routine 10/30/2024 12:00 AM EST 18 EXTRACTION Routine 10/30/2024 12:00 AM EST 18 EXTRACTION Routine 10/30/2024 12:00 AM EST 17 EXTRACTION Routine 10/30/2024 12:00 AM EST 16 EXTRACTION Routine 10/30/2024 12:00 AM EST 15 EXTRACTION Routine 10/30/2024 12:00 AM EST 14 EXTRACTION Routine 10/30/2024 12:00 AM EST 13 EXTRACTION Routine 10/30/2024 12:00 AM EST 12 EXTRACTION Routine 10/30/2024 12:00 AM EST 8 EXTRACTION Routine 10/30/2024 12:00 AM EST 4 EXTRACTION Routine 10/30/2024 12:00 AM EST 3 EXTRACTION Routine 10/30/2024 12:00 AM EST 2 EXTRACTION Routine 10/30/2024 12:00 AM EST LAB COLOGUARD?? COLON CANCER SCREEN Routine 01/09/2024 5:00 AM EDT Encounter for screening for malignant neoplasm of colon HM FIT DNA/COLOGUARD CANCER SCREENING Routine 01/09/2024 LIPID PANEL, STANDARD Routine 12/27/2023 8:06 AM EDT Primary hypertension Stage 3 chronic kidney disease, unspecified whether stage 3a or 3b CKD (CMS/HCC) Paroxysmal atrial fibrillation (CMS/HCC) High cholesterol from Last 3 Months or Most Recently Relevant to Health Maintenance Results * Cologuard?? colon cancer screening (01/09/2024 5:00 AM EDT) Cologuard Result Negative Negative 01/16/20 10:51 AM EDT [facility] (CLIA #:[id number]) Comment: NEGATIVE TEST RESULT. A negative Cologuard result indicates a low likelihood that a colorectal cancer (CRC) or advanced adenoma (adenomatous polyps with more advanced pre-malignant features) ??is present. The chance that a person with a negative Cologuard test has a colorectal cancer is less than 1 in 1500 (negative predictive value >99.9%) or has an ??advanced adenoma is less than ??5.3% (negative predictive value 94.7%). These data are based on a prospective cross-sectional study of 10,000 individuals at average risk for colorectal cancer who were screened with both Cologuard and colonoscopy. (Zenia Kumar et al, N Engl J Med 2014;370(14):1286- 1297) The normal value (reference range) for this assay is negative. COLOGUARD RE-SCREENING RECOMMENDATION: Periodic colorectal cancer screening is an important part of preventive healthcare for asymptomatic individuals at average risk for colorectal cancer. ??Following a negative Cologuard result, the [place] [employer] and U.S. Multi-Society Task Force screening guidelines recommend a Cologuard re-screening interval of 3 years. References: [place] [employer] Guideline for Colorectal Cancer Screening: https://www.cancer.org/cancer/kvvqh-ryurps-muhoyh/gnkqgpsgg-yofirrrdp-qnyvuxh/ac s-rec ommendations.html.; Felix DK, Peterson CR, Mert DiamondK, Colorectal Cancer Screening: Recommendations for Physicians and Patients from the U.S. Multi-Society Task Force on Colorectal Cancer Screening , Am J Gastroenterology 2017; 112:9919-3487. TEST DESCRIPTION: Composite algorithmic analysis of stool DNA-biomarkers with hemoglobin immunoassay. ?? Quantitative values of individual biomarkers are not reportable and are not associated with individual biomarker result reference ranges. Cologuard is intended for colorectal cancer screening of adults of either sex, 45 years or older, who are at average-risk for colorectal cancer (CRC). Cologuard has been approved for use by the U.S. FDA. The performance of Cologuard was established in a cross sectional study of average-risk adults aged 50-84. Cologuard performance in patients ages 45 to 49 years was estimated by sub-group analysis of near-age groups. Colonoscopies performed for a positive result may find as the most clinically significant lesion: colorectal cancer [4.0%], advanced adenoma (including sessile serrated polyps greater than or equal to 1cm diameter) [20%] or non- advanced adenoma [31%]; or no colorectal neoplasia [45%]. These estimates are derived from a prospective cross-sectional screening study of 10,000 individuals at average risk for colorectal cancer who were screened with both Cologuard and colonoscopy. (Zenia Linton al, N Engl J Med 2014;370(14):3692-8414.) Cologuard may produce a false negative or false positive result (no colorectal cancer or precancerous polyp present at colonoscopy follow up). A negative Cologuard test result does not guarantee the absence of CRC or advanced adenoma (pre-cancer). The current Cologuard screening interval is every 3 years. ([place] [employer] and U.S. Multi-Society Task Force). Cologuard performance data in a 10,000 patient pivotal study using colonoscopy as the reference method can be accessed at the following location: www.[employer]/results. Additional description of the Cologuard test process, warnings and precautions can be found at www.[employer].Interface21. Stool specimen (specimen) 01/09/2024 5:00 AM EDT 01/10/2024 1:10 PM EDT us Landry Barrett MD LAB MOLECULAR DIAGNOSTICS ORDERA BLES Final Result [facility] (CLIA #:[id number]) [facility] [place] [address], * FIT DNA/Cologuard Cancer Screening (01/09/2024) Cologuard Cancer Screen Negative Stool us Landry Barrett MD HEALTH MAINTENANCE Final Result * (ABNORMAL) Lipid Panel, Standard (12/27/2023 8:06 AM EDT) Triglycerides 217(H) <150 mg/dL [facility] Comment:Desirable Triglyceri de: less than 150 mg/dLBorderline High Triglyceride 150-199 mg/dLHigh Triglyceride: 200-499 mg/dLVery High Triglyceride: greater than or equal to 5OO mg/dL Cholesterol 160 <200 mg/dL [facility] Comment:Desirable Cholestero l: less than 200 mg/dLBorderline High Cholesterol: 200-239 mg/dLHigh Cholesterol: greater than 239 mg/dL LDL Cholesterol Calculated 75 <100 mg/dL [facility] Comment:Desirable LDL: less than 100 mg/dLNear Optimal/Above Optimal LDL: 110- 129 mg/dLBorderline High LDL: 130-159 mg/dLHigh LDL: 160-189 mg/dLVery High LDL: greater than or equal to 190 mg/dL HDL Cholesterol 42 >40 mg/dL [facility] Comment:Desirable HDL: great er than 40 mg/dL Note: This HDL assay may give artificially low results in patients with liver disease. Blood Venous blood specimen / Unknown 12/27/2023 8:06 AM EDT 12/27/2023 11:28 AM EDT us Landry Name LAB BLOOD ORDERABLES Final Resul t [facility] [address] [place] [phone] from Last 3 Months or Most Recently Relevant to Health Maintenance Insurance [facility] STANDARD MEDICARE DENTAL-[facility] MEDICAID STAND ADULT Care Teams Aircraft Maintenance Engineer Relationship Specialty Start Date End Date Name, MD Landry [address] [place] [address] PCP - General Family Medicine 09/14/15 Mabel Gambino PharmD [address] [place], [place] Pharmacist Internal Medicine 09/06/21
--- OUTSIDE RECORDS SUMMARY | 2025-01-09 08:53 | XMS_ITS | Encounter Summary ---
Author Organization [employer] Address [address] [facility] [address] [place] [address] Care Team Providers Care Purchasing Expeditor Name Role Phone Name, Landry BETANCUR Primary Care Provider [phone] Mabel Gambino PharmD Unavailable [phone] Reason for Visit * Reason Comments Med Refill Encounter Details Date Type Department Care Team ([facility] st Contact Info) Description 10/07/2024 Refill [facility] [address] [place] [address] Name, MD Landry [address] [place] [address] Chronic insomnia Social History Tobacco Use Types [...] Info) Description 02/13/2025 10:00 AM EDT Telemedicine [facility] [address] [place] [phone] Afia Morrison RN 02/16/2025 9:00 AM EDT Medication Management [facility] [address] [place] [phone] Puia, Mabel, PharmD [address] [place] [phone] documented as of this encounter Goals Goal Patient Goal Type Associated Problems Recent Progress Patient-Stated? Author Blood Pressure < 140/90 Blood Pressure 130/62( 025 9:12 AM EDT) No Puia, Mabel, PharmD Record your blood pressure once a week Blood Pressure No Puia, Mabel, PharmD documented as of this encounter Visit Diagnoses Diagnosis Chronic insomnia Insomnia, unspecified documented in this encounter Additional Health Concerns Assessment Noted Time PHQ-9 Depression Total Score: 0 12/24/19 24 9:00 AM EDT documented as of this encounter Care Teams Purchasing Expeditor Relationship Specialty Start Date End Date Name, MD Landry [address] [place] [phone] PCP - General Family Medicine 09/14/15 Puia, Mabel, PharmD [address] [place] [phone] Pharmacist Internal Medicine 09/06/21 documented as of this encounter
--- OUTSIDE RECORDS SUMMARY | 2025-01-09 08:53 | XMS_ITS | Encounter Summary ---
Author Organization [employer] Address [address] [place] [address] 7t [place] [address] Care Team Providers Care Red Hat Open Stack Administrator Name Role Phone Name, Landry BETANCUR Primary Care Provider [phone] Mabel Gambino PharmD Unavailable Reason for Visit * Reason Comments Med Refill Encounter Details Date Type Department Care Team ([facility] st Contact Info) Description 12/01/[address] [facility] CHC MED & PEDS [address] [place] [address] Name, MD Landry [address] [place] [phone] Heartburn Social History Tobacco Use Types Packs/Day Years [...] suspected to have Coronavirus/COVID-19? No / Unsure 11/17/2022 9:07 AM EDT documented as of this encounter Plan of Treatment Upcoming Encounters Date Type Department Care Team ([facility] Contact Info) Description 02/13/2025 10:00 AM EDT Telemedicine [facility] MEDICINE [address] [place] [address] [phone] Afia Morrison RN 02/16/2025 9:00 AM EDT Medication Management [address] [address] Mabel Gambino PharmD [address] [place] [address] documented as of this encounter Goals Goal Patient Goal Type Associated Problems Recent Progress Patient-Stated? Author Blood Pressure < 140/90 Blood Pressure 130/62( 025 9:12 AM EDT) No Mabel Gambino PharmD Record your blood pressure once a week Blood Pressure No Mabel Gambino PharmD documented as of this encounter Visit Diagnoses Diagnosis Heartburn documented in this encounter Care Teams Red Hat Open Stack Administrator Relationship Specialty Start Date End Date Name, MD Landry [address] [place] [address] PCP - General Family Medicine 09/14/15 Mabel Gambino, PharmD [address] [place] [address] Pharmacist Internal Medicine 09/06/21 documented as of this encounter
--- OUTSIDE RECORDS SUMMARY | 2025-01-09 08:53 | XMS_ITS | Encounter Summary ---
Author Organization [employer] Address [address] [address] [facility] [facility] [address] 7t [place] [address] Care Team Providers Care Advance Agent Name Role Phone Name, Landry BETANCUR Primary Care Provider Mabel Gambino PharmD Unavailable [phone] Encounter Details Date Type Department Care Team (Late st Contact Info) Description 09/12/2023 Orders Only [facility] WALK-IN CENTER [address] [place], [place] [phone] Michael Mcclellan MD [address] [place] [address] Social History Tobacco Use Types Packs/Day Years Used Date Smoking Tobacco: Never Smokeless Tobacco: Never Alcohol Use Standard Drinks/Week Comments Never 0 (1 standard drink = 0.6 oz pur e alcohol) Depression Answer Date Recorded Patient Health Questionnaire-9 Score 0 12/13/2022 Housing Stability Answer Date Recorded What is your housing situation today? I have alex reyes 06/20/[address] you li ve. Do you have problems with any of the following? None of the above 06/20/2023 Food Insecurity Answer Date Recorded Within the past 12 months, y ou worried that your food would run out before you got money to buy more: Never True 06/20/2023 Within the past 12 months,th e food you bought just didn't last and you didn't have enough money to get more: Never True Transportation Answer Date Recorded In the past 12 months, has l ack of transportation kept you from medical appts, meetings, work or from getting things needed for daily living? No 06/20/2023 Utilities Answer Date Recorded In the past 12 months, has t he electric, gas, oil or water company threatened to shut off services in your home? No 06/20/2023 Depression Answer Date Recorded Patient Health Questionnaire-2 [...] Info) Description 02/13/2025 10:00 AM EDT Telemedicine [facility] MEDICINE [address] [place] [address] [phone] Afia Morrison RN 02/16/2025 9:00 AM EDT Medication Management [facility] MEDICINE [address] [place] [address] Mabel Gambino PharmD [address] [place] [address] documented as of this encounter Goals Goal Patient Goal Type Associated Problems Recent Progress Patient-Stated? Author Blood Pressure < 140/90 Blood Pressure 130/62( 025 9:12 AM EDT) No EliseiaMabel, PharmD Record your blood pressure once a week Blood Pressure No Mabel Gambino, PharmD documented as of this encounter Visit Diagnoses Not on filedocumented in this encounter Additional Health Concerns Assessment Noted Time PHQ-9 Depression Total Score: 0 12/14/19 23 3:13 PM EDT documented as of this encounter Care Teams Advance Agent Relationship Specialty Start Date End Date Name, MD Landry [address] [place] [address] PCP - General Family Medicine 09/14/15 Mabel Gmabino, PharmD [address] [place] [address] Pharmacist Internal Medicine 09/06/21 documented as of this encounter
--- OUTSIDE RECORDS SUMMARY | 2025-01-09 08:53 | XMS_ITS | Clinical Summary ---
Author Organization [facility] Address [address] [place] [address] Care Team Providers Care Biblical Languages Professor Name Role Phone Name, Landry BETANCUR Primary Care Provider [phone] Allergies Active Allergy Reactions Criticality Noted Date Comments Aspirin 05/03/2017 Medications Medication Sig Dispensed Refills Start Date End Date Status oxyCODONE-acetaminophe n (PERCOCET) 5-325 MG per tablet Take 1 tablet by mouth every 8 (eight) hours as needed for pain. 0 Active lisinopril (PRINIVIL,ZESTRIL) tablet 30 mg Take 1 tablet (30 mg total) by mouth daily. 0 Active amLODIPine (NORVASC) tablet 10 mg Take 1 tablet (10 mg total) by mouth daily. 0 Active fluticasone (FLONASE) 50 MCG/ACT nasal spray spray/apply 1 spray in each nostril daily. 0 Active hydrALAZINE (APRESOLINE) 25 MG tablet Take 2 tablets (50 mg total) by mouth 3 (three) times a day. 0 Active apixaban (ELIQUIS) 2.5 MG TABS tablet Take by mouth every 12 (twelve) hours. 0 Active vitamin D3 (CHOLECALCIFEROL) 1.25 MG (52269 UT) CAPS capsule Take 1 capsule (50,000 Units total) by mouth every 7 days. 0 Active Suvorexant (Belsomra) 5 MG TABS Take by mouth. 0 Active Calcium Carb-Cholecalciferol (Calcium + Vitamin D3) 500-5 MG-MCG TABS Take 1 tablet by mouth daily. 0 Active carvedilol (COREG) 6.25 MG tablet Take 1 tablet (6.25 mg total) by mouth 2 (two) times a day with meals. 0 Active pantoprazole (PROTONIX) 20 MG tablet Take 1 tablet (20 mg total) by mouth daily. 0 Active sertraline (ZOLOFT) 100 MG tablet Take 1 tablet (100 mg total) by mouth daily. 0 Active atorvastatin (LIPITOR) tablet 80 mg Take 1 tablet (80 mg total) by mouth daily. 0 Active Active Problems No known active problems Family History Medical History Relation Name Comments Hypertension Brother 1 Other Brother 2 tragedy Hypertension Father Hypertension Maternal Grandmother Stroke Maternal Grandmother Hypertension Mother Relation Name Status Comments Brother 1 Alive Brother 2 Father Maternal Grandmother Mother Sister Alive Social History Tobacco Use Types Packs/Day Years Used Date Smoking Tobacco: Never Smokeless Tobacco: Never Alcohol Use Standard Drinks/Week Comments No 0 (1 standard drink = 0.6 oz pur e alcohol) Sex and Gender Information Value Date Recorded Sex Assigned at Not on file Gender Identity Not on file Sexual Orientation Not on file Job Start Date Occupation Industry Not on file Not on file Not on file Last Filed Vital Signs Vital Sign Reading Time Taken Comments Blood Pressure 138/97 05/13/2024 8:40 AM EDT Pulse 95 05/13/2024 8:40 AM EDT Temperature 36.2 ??C (97.1 ??F) 05/13/2024 8:40 AM ED T Respiratory Rate - - Oxygen Saturation 100% 05/13/2024 8:40 AM EDT Inhaled Oxygen Concentration - - Weight 80.6 kg (177 lb 12.8 oz) 05/13/2024 8:40 AM EDT Height 157.5 cm (5' 2 ) 07/16/2023 10:0 1 AM EST Body Mass Index 32.52 07/16/2023 10:01 AM EST Plan of Treatment Health Maintenance Due Date Last Done Comments Hepatitis C Screening 1949 COVID-19 Vaccine (#1) 1954 Depression Screening 1961 Preventative Health Evaluation 1967 Colon Cancer Screening (Colonoscopy) 1994 Fall Risk Assessment 2014 Osteoporosis Screening (DEXA Scan) 2014 DTap / Tdap / Td (2 - Td or Tdap) 05/06/2020 05/06/2010 Influenza Vaccine (#1) 2024 3, 05/30/2022, 05/10/2021, Additional history exists Shingrix-Zoster Vaccine Completed 02/09/2022, 11/15 Pneumococcal Vaccine Completed 12/05/2023, 07/09/2018, 07/09/2017 RSV Adult > 60+ Yrs or Completed 12/20/2023 Hepatitis B Vaccines Aged Out No long er eligible based on patient's age to complete this topic RSV Ped < 20 months Aged Out No longe r eligible based on patient's age to complete this topic Care Teams Biblical Languages Professor Relationship Specialty Start Date End Date Name, MD Landry PCP - General Internal Medicine 04/30/17
--- OUTSIDE RECORDS SUMMARY | 2025-01-09 08:53 | XMS_ITS | Encounter Summary ---
Author Organization [employer] Address [address] [place] [address] 7t [place] [address] Care Team Providers Care Calculus Tutor Name Role Phone Name, Landry BETANCUR Primary Care Provider [phone] Mabel Gambino PharmD Unavailable Reason for Visit * Reason Comments Med Refill Encounter Details Date Type Department Care Team (Late st Contact Info) Description 02/26/2023 Refill [facility] CHC MED & PEDS [address] [place] [address] Name, MD Landry [address] [place] [phone] Vitamin D deficiency Social History Tobacco Use Types Packs/Day Years Used Date Smoking Tobacco: Never Smokeless Tobacco: Never Depression Answer Date Recorded Patient Health Questionnaire-9 [...] Department Care Team (Late Contact Info) Description 02/13/2025 10:00 AM EDT Telemedicine [facility] MEDICINE [address] [place] [address] [phone] Afia Morrison RN 02/16/2025 9:00 AM EDT Medication Management [address] [phone] Mabel Gambino PharmD [address] [place] [address] documented as of this encounter Goals Goal Patient Goal Type Associated Problems Recent Progress Patient-Stated? Author Blood Pressure < 140/90 Blood Pressure 130/62( 025 9:12 AM EDT) No Mabel Gambino, PharmD Record your blood pressure once a week Blood Pressure No Mabel Gambino PharmD documented as of this encounter Visit Diagnoses Diagnosis Vitamin D deficiency documented in this encounter Additional Health Concerns Assessment Noted Time PHQ-9 Depression Total Score: 0 12/14/19 23 3:13 PM EDT documented as of this encounter Care Teams Calculus Tutor Relationship Specialty Start Date End Date Name, MD Landry [address] [place] [phone] PCP - General Family Medicine 09/14/15 Mabel Gambino PharmD [address] [place] [phone] Pharmacist Internal Medicine 09/06/21 documented as of this encounter
--- OUTSIDE RECORDS SUMMARY | 2025-01-09 08:53 | XMS_ITS | Clinical Summary ---
Author Organization [facility] Address [address] [address] Phone Care Team Providers Care Fluid Dynamicist Name Role Phone Name, Landry BETANCUR Primary Care Provider [phone] Allergies Active Allergy Reactions Criticality Noted Date Comments Aspirin Rash Low 02/12/2009 Rash and SOB Mirtazapine Rash Low 02/07/2019 Spironolactone Hives,Rash Low 02/07/2019 Trazodone 10/07/2018 Medications sertraline (ZOLOFT) 50 MG tablet Take 1 tablet by mouth 1 (one) time each day Active pantoprazole (PROTONIX) 20 MG EC tablet Take 1 tablet by mouth 1 (one) time each day Active primidone (MYSOLINE) 50 MG tablet Take 50 mg by mouth 2 (two) times a day 10/13/2020 Active chlorthalidone 25 MG tablet Take 25 mg by mouth 1 (one) time each day 12.5 mg Active Eliquis 2.5 MG tablet Take 2.5 mg by mouth 2 (two) times a day 10/22/2020 Active anastrozole (ARIMIDEX) 1 MG chemo tablet Take 1 tablet by mouth 1 (one) time each day Active atorvastatin (LIPITOR) 40 MG tablet Take 40 mg by mouth 1 (one) time each day 12/27/2020 Active lisinopril 40 MG tablet 11/15/2021 Active carvedilol (COREG) 6.25 MG tablet Take 6.25 mg by mouth in the morning and 6.25 mg in the evening. Take with meals. Active calcium carbonate-vitam in D 600-200 MG-UNIT per tablet Take 1 tablet by mouth 09/28/2021 Active loratadine (CLARITIN) 10 MG tablet Take 10 mg by mouth 1 (one) time each day Active cholecalciferol (VITAMIN D-3) 1.25 MG (22704 UT) capsule Take 50,000 Units by mouth 1 (one) time per week Active Belsomra 5 MG tablet TAKE 1 TABLET BY MOUTH AT BEDTIME WITHIN 30 MINUTES OF BEDTIME. LAURO RICHMOND SI SE AKIKO A LEVANTAR EN 7 HORAS O MAS 02/16/2022 Active hydrALAZINE 100 MG tablet TAKE 1 TABLET BY MOUTH TWICE DAILY IN THE MORNING AND IN THE EVENING 180 tablet 05/21/2024 Active hydrALAZINE 50 MG tablet Take 50 mg by mouth in the morning and 50 mg in the evening and 50 mg before bedtime. Active amLODIPine (NORVASC) 5 MG tablet TAKE 1 TABLET BY MOUTH AT BEDTIME 90 tablet 12/08/2024 Active allopurinol (ZYLOPRIM) 100 MG tablet Take 50 mg by mouth every morning Active colchicine 0.6 MG tablet Take 0.6 mg by mouth Active diphenhydrAMINE (BENADRYL) 25 MG capsule Take 25 mg by mouth every 6 (six) hours if needed for itching Active fluticasone (FLONASE) 50 MCG/ACT nasal spray INSTILL 2 SPRAYS IN EACH NOSTRIL ONCE DAILY IN THE MORNING Active Active Problems Problem Noted Date Diagnosed Date Injury of kidney 09/28/2022 Gout due to renal impairment 09/28/2022 Essential tremor 09/28/2022 COVID-19 09/28/2022 Carpal tunnel syndrome 09/28/2022 Atrial fibrillation 09/28/2022 Postoperative pain 09/28/2022 Stage 3b chronic kidney disease 03/09/2022 Renal osteodystrophy 03/09/2022 Allergic rhinitis 12/29/2021 Anemia 12/29/2021 Anxiety disorder 12/29/2021 Constipation 12/29/2021 Generalized obesity 12/29/2021 Hypercholesterolemia 12/29/2021 Hypertriglyceridemia 12/29/2021 Insomnia 12/29/2021 Obese class I 12/29/2021 Osteoarthritis of left knee joint 12/29/2021 Reflux gastritis 12/29/2021 Hypertensive disorder 12/29/2021 Chronic kidney disease stage 3 01/13/2021 Essential hypertension 01/13/2021 Osteopenia 02/07/2019 Depressive disorder 10/07/2018 Heartburn 08/23/2018 Pain of knee region 05/21/2018 History of total knee arthroplasty 05/21/2018 Cough 12/19/2017 History of right mastectomy 11/22/2017 Primary gonarthrosis, bilateral 09/24/2015 Encounters Date Type Department Care Team Description 01/05/2025 2:45 PM EDT Office Visit [facility] [address] [place] [phone] Charli Clark MD Stage 3b chronic kidney disease (HCC) (Primary Dx); Renal osteodystrophy; Hypertensive disorder 12/07/2024 Refill [facility] [address] [place] [address] Charli Clark MD from Last 3 Months Immunizations Immunization Administration Dates Next Due Influenza (IM) Preservative Free 05/20/2020,09/03 Influenza Split High Dose Pr eservative Free IM 05/21/2019,05/21/2018 Influenza, Quadrivalent, Pre servative Free 06/25/2017 Influenza, Quadrivalent, Wit h Preservative 06/26/2016 Influenza, Unspecified 05/30/2022,2020,06/04/2015,05/12,05/15/2013,06/24/2012,05/03/2011 ,05/24/2010,05/31/2009 Pneumococcal Conjugate 13-Valent 07/09/2017 Pneumococcal Polysaccharide 07/09/2018 Shingrix 02/09/2022,11/15/2021 Td 08/24/2021 Tdap 05/06/2010 Social History Tobacco Use Types Packs/Day Years Used Date Smoking Tobacco: Never Alcohol Use Standard Drinks/Week Comments No 0 (1 standard drink = 0.6 oz pur e alcohol) Comments Unknown Sex and Gender Information Value Date Recorded Sex Assigned at Not on file Legal Sex Female 4:45 PM EST Gender Identity Not on file Sexual Orientation Not on file Last Filed Vital Signs Vital Sign Reading Time Taken Comments Blood Pressure 134/90 01/05/2025 2:25 PM EDT Pulse 95 01/05/2025 2:25 PM EDT Temperature - - Respiratory Rate - - Oxygen Saturation 97% 01/05/2025 2:25 PM EDT Inhaled Oxygen Concentration - - Weight 77.5 kg (170 lb 12.8 oz) 01/05/2025 2:25 PM EDT Height 157.5 cm (5' 2 ) 11/17/2019 12:0 0 PM EDT Body Mass Index 31.24 11/17/2019 12:00 PM EDT Plan of Treatment Upcoming Encounters Date Type Department Care Team (Late st Contact Info) Description 07/13/2025 3:30 PM EST Office Visit [facility] [address] [facility] [place] [address] Charli Clark MD [address] [facility] [address] [place] [address] Health Maintenance Due Date Last Done Comments Breast Cancer Screening 1949 Colorectal Cancer Screening: Annual FOBT 1998 Colorectal Cancer Screening: Colonoscopy 1998 Colorectal Cancer Screening: Sigmoidoscopy 1998 Pneumococcal Vaccine: 50+ Years Completed 07/09/2018, 07/09/2017 Pneumococcal Vaccine: Peds (0 to 5 Years) and At-Risk Patients (6 to 49 Years) Discontinued 07/09/2018, 07/09/2017 Influenza Vaccine Completed 05/21/2024, , 05/10/2021, Additional history exists Hepatitis B Vaccine Aged Out No longe r eligible based on patient's age to complete this topic [place] [address] Medicare Medicaid [place] Medicaid [place] Care Teams Fluid Dynamicist Relationship Specialty Start Date End Date Name, MD Landry [address] [place] [phone] PCP - General 09/13/20
--- OUTSIDE RECORDS SUMMARY | 2025-01-09 08:54 | XMS_ITS | Encounter Summary ---
Author Organization [employer] Address [address] [facility] 7t [place] [address] Care Team Providers Care Yarn Texturing Machine Operator Name Role Phone Name, Landry BETANCUR Primary Care Provider [phone] Mabel Gambino PharmD Unavailable [phone] Encounter Details Date Type Department Care Team (Latest Contact Info) Description 01/05/2025 Travel Social History Tobacco Use Types Packs/Day Years [...] Info) Description 02/13/2025 10:00 AM EDT Telemedicine [facility] MEDICINE [address] [place] [phone] Afia Morrison RN 02/16/2025 9:00 AM EDT Medication Management [facility] [address] [place] [address] Mabel Gambino, PharmD [address] [place] [address] documented as of this encounter Goals Goal [...] documented as of this encounter Care Teams Yarn Texturing Machine Operator Relationship Specialty Start Date End Date Name, MD Landry [address] [place] [address] PCP - General Family Medicine 09/14/15 PuiaChristinasa, PharmD [address] [place] [phone] Pharmacist Internal Medicine 09/06/21 documented as of this encounter
--- OUTSIDE RECORDS SUMMARY | 2025-01-09 08:54 | XMS_ITS | Encounter Summary ---
Author Organization [employer] Address [address] [facility] 7t [place] [address] Care Team Providers Care Rouge Mixer Name Role Phone Name, Landry BETANCUR Primary Care Provider [phone] Mabel Gambino PharmD Unavailable [phone] Reason for Visit * Reason Onset Date Comments TRIAGE NURSE 11/19/2024 Encounter Details Date Type Department Care Team ([facility] st Contact Info) Description 11/19/2024 Telephone [facility] MEDICINE [address] [place], [place] [phone] Name, MD Landry [address] [place] [address] TRIAGE NURSE Social History Tobacco Use Types Packs/Day Years [...] AM EDT documented as of this encounter Miscellaneous Notes * Telephone Encounter - Yuly Wray RN - 11/19/2024 9:45 AM EDT Per chart review pt on lisinopril 40 mg daily, carvedilol (Coreg) 6.25 MG tablet Sig: TAKE 1 TABLET BY MOUTH TWICE DAILY IN THE MORNING AND IN THE EVENING WITH FOOD amLODIPine (Norvasc) 5 MG tablet Sig: Take 5 mg by mouth at bedtime. No denture packer needed as this ticket writer speaks Faroese. Call returned to Debora Caicedo to triage below. Reports having elevated BP reading of 190/100 was 20 mins ago. Pt rechecked BP now 152/84 on left arm. Pt took BP meds at 8:30 am. Pt denies any GARCIA , CP , SOB Or dizziness. Per pt has had high BP readings in the morning x 3 days. Per pt this is related to not having medication to help with sleep (Belsomra) 5 MG tablet. . Per pt had same issue last month. Pt was given short course of Ambien to take until PA was resolved. Patient is requesting that PCP sent Ambien again until PA for Belsomrais approved. Pt advised will send to PCP to review and further advise Blue Team primary care team nurses of plan of care for med for insomnia and if RN visit for BP check appropriate since no appts with PCP this week and pt is Asymptomatic. Protocol Used: Blood Pressure - High (Adult) Protocol-Based Disposition: See in Office or Video Visit within 2 Weeks Override (Final) Disposition: Discuss with PCP and Callback by Nurse Today Override Reason: Prescription issue Video visit offer not recorded Positive Triage Question: * Systolic BP >= 130 OR Diastolic >= 80, and is taking BP medications * All higher-acuity triage questions were negative Care Advice Discussed: * High Blood Pressure * Reasons To Call Back - Headache, blurred vision, difficulty talking, or difficulty walking occurs - Chest pain or difficulty breathing occurs - You become worse * Telephone Encounter - Kelley Jose - 11/19/2024 9:44 AM EDT Symptom: High Blood Pressure - Caller Reports Outcome: Schedule an urgent appointment (within 1 hour) or talk to a nurse or provider soon Reason: Getting worse Pt has high blood pressure 190/100 The caller accepted this outcome. ITALIAN SPEAKER documented in this encounter Plan of Treatment Upcoming Encounters Date Type Department Care Team (Late st Contact Info) Description 02/13/2025 10:00 AM EDT Telemedicine [facility] MED[facility]INE [address] [place] [address] Afia Morrison RN 02/16/2025 9:00 AM EDT Medication Management [facility] [address] [place] [address] Puia, Mabel, PharmD [address] [place] [address] documented as of this encounter Goals Goal [...] documented as of this encounter Care Teams Rouge Mixer Relationship Specialty Start Date End Date Name, MD Landry [address] [place] [address] PCP - General Family Medicine 09/14/15 Mabel Gambino PharmD [address] [place] [address] Pharmacist Internal Medicine 09/06/21 documented as of this encounter
--- OUTSIDE RECORDS SUMMARY | 2025-01-09 08:54 | XMS_ITS | Encounter Summary ---
Author Organization [employer] Address [address] [facility] 7t [place] [address] Care Team Providers Care Medical Oncology Physician Name Role Phone Name, Landry BETANCUR Primary Care Provider [phone] Mabel Gambino PharmD Unavailable [phone] Reason for Visit * Reason Comments Med Refill Encounter Details Date Type Department Care Team ([facility] Contact Info) Description 07/22/2024 Refill [facility] MEDICINE [address] [place] [address] Name, MD Landry [address] [place] [address] Gout due to renal impairment, unspecified chronicity, unspecified site Social History Tobacco Use Types Packs/Day Years [...] Info) Description 02/13/2025 10:00 AM EDT Telemedicine [address] [address] Afia Morrison RN 02/16/2025 9:00 AM EDT Medication Management [address] [address] Puia, Mabel, PharmD [address] [place] [address] documented as of this encounter Goals Goal Patient Goal Type Associated Problems Recent Progress Patient-Stated? Author Blood Pressure < 140/90 Blood Pressure 130/62( 025 9:12 AM EDT) No Puia, Mable, PharmD Record your blood pressure once a week Blood Pressure No Puia, Mabel, PharmD documented as of this encounter Visit Diagnoses Diagnosis Gout due to renal impairment, unspecified chronicity, unspecified site documented in this encounter Additional Health Concerns Assessment Noted Time PHQ-9 Depression Total Score: 0 12/24/19 24 9:00 AM EDT documented as of this encounter Care Teams Medical Oncology Physician Relationship Specialty Start Date End Date Name, MD Landry [address] [place] [address] PCP - General Family Medicine 09/14/15 Puia, Mabel, PharmD [address] [place] [address] Pharmacist Internal Medicine 09/06/21 documented as of this encounter
[2025-01-09 11:07] LABS: MANUAL DIFF FLAG NO
[2025-01-09 11:10] LABS: Appearance Urine Cloudy; Color Urine Yellow; Glucose Urine UA Negative (Negative); Leukocyte Esterase Urine Moderate (2+) (Negative); Nitrite Urine Negative (Negative); PH 5.5 (5.0-9.0); UMIC TRIGGER UA YES; Urine Blood Negative (Negative); Urine Ketones Negative (Negative); Urine Protein 30 (1+) mg/dL (Neg-Trace)
[2025-01-09 11:18] LABS: Basophils Absolute Auto 0.1 X10*3/uL (0.0-0.2); Basophils Percent Auto 0.8 % (0-2); Eosinophils Absolute Auto 0.3 X10*3/uL (0.0-0.4); Eosinophils Percent Auto 4.1 % (0-4); Hematocrit 38.5 % (37.0-47.0); Hemoglobin 12.8 g/dl (12.0-16.0); Imm Gran Abs Auto 0.02 X10*3/uL (0.00-0.03); Imm Gran Pct Auto 0.3 % (0.0-0.4); Lymphocytes Absolute Auto 2.9 X10*3/uL (1.2-4.9); Lymphocytes Percent Auto 44.8 % (20-40); Mean Corpuscular HGB Conc 33.2 g/dl (31.0-35.0); Mean Corpuscular Hemoglobin 31.4 pg (27.0-33.0); Mean Corpuscular Volume 94.4 fL (80.0-98.0); Mean Platelet Volume 10.6 fL (9.4-12.3); Monocytes Absolute Auto 0.5 X10*3/uL (0.1-1.2); Monocytes Percent Auto 7.6 % (2-11); Neutrophils Absolute Auto 2.8 x10*3/uL (2.0-8.3); Neutrophils Percent Auto 42.4 % (45-73); Platelet Count 283 X10*3/uL (160-400); Red Blood Count 4.08 X10*6/uL (4.20-5.50); Red Cell Distribution Width 12.7 % (11.0-16.0); White Blood Count 6.5 X10*3/uL (4.8-10.8)
[2025-01-09 11:35] LABS: Albumin Level 4.6 g/dL (3.5-5.0); Anion Gap 11 (12-20); Blood Urea Nitrogen 19 mg/dL (9-16); Calcium 9.7 mg/dL (8.4-10.2); Carbon Dioxide 29 mmol/L (22-29); Chloride 106 mmol/L (96-108); Estimated Glomerular Filt Rate 39; Magnesium 1.9 mg/dL (1.6-2.6); Phosphorus 3.7 mg/dL (2.7-4.5); Potassium 4.3 mmol/L (3.3-5.1); Sodium 142 mmol/L (135-145)
[2025-01-09 11:36] LABS: Alanine Aminotransferase 25 U/L (0-31); Albumin Level 4.6 g/dL (3.5-5.0); Alkaline Phosphatase 88 U/L (39-117); Anion Gap 10 (12-20); Aspartate Amino Transferase 28 U/L (5-31); Bilirubin Direct 0.1 mg/dL (0.0-0.5); Bilirubin Total 0.4 mg/dL (0.0-1.0); Blood Urea Nitrogen 18 mg/dL (9-16); Calcium 9.7 mg/dL (8.4-10.2); Carbon Dioxide 29 mmol/L (22-29); Chloride 104 mmol/L (96-108); Cholesterol 149 mg/dL (<200); Creatinine Urine 175.64 mg/dL; Estimated Glomerular Filt Rate 37; Glucose Random 106 mg/dL (60-115); HDL Cholesterol 42 mg/dL (>40); LDL Cholesterol Calculated 63 mg/dL (<100); Microalbum/Creatinine Ratio Ur 87.6 ug/mg cr (<30); Potassium 3.9 mmol/L (3.3-5.1); Sodium 139 mmol/L (135-145); Total Protein 7.6 g/dL (6.5-8.0); Total Protein Urine Random 31 mg/dL (<12); Triglycerides 223 mg/dL (<150)
[2025-01-09 11:47] LABS: Parathyroid Hormone Intact 192.6 pg/mL (8.7-77.1)
[2025-01-09 11:53] LABS: Vitamin D 25-OH Total 52.6 ng/mL (>30)
[2025-01-09 12:01] LABS: Bacteria Urine Trace (None Seen); RBC Urine 0-2 /HPF (0-2); Squamous Epithelial Cell Urine 0-2 /HPF (0-2); WBC Urine 0-5 /HPF (0-5)
[2025-01-09 12:02] LABS: Hyaline Casts Urine 0-2 /LPF (0-2)
== END 2025-01-09 08:43 | disposition home or self-care (01) ==
LOC: HO.HHCL 08:42
PROVIDERS: Internal Medicine Nephrology; Visit Provider Internal Medicine Geriatric Medicine
DX: N18.30 Chronic kidney disease, stage 3 unspecified (principal); I12.9 Hypertensive chronic kidney disease with stage 1 through stage 4 chronic kidney disease, or unspecified chronic kidney disease; E78.00 Pure hypercholesterolemia, unspecified; E78.1 Pure hyperglyceridemia; N25.0 Renal osteodystrophy
CPT/HCPCS: 36415; 80048; 80051; 80061; 80076; 81001; 82040; 82043; 82306; 82310; 82565; 82570; 83735; 83970; 84100; 84156; 84443; 84520; 85025

== ENCOUNTER 2025-03-21 19:04 | Emergency (ER) | payer MEDICARE, MEDICAID, SELFPAY ==
--- NOTE | 2025-03-21 19:26 | ED.GENADULT ---
HPI - General Adult General Chief complaint: Animal Bite Stated complaint: cat bite right hand, needs rabies shot Time Seen by Provider: 03/21/25 19:33 Source: patient, RN notes reviewed and old records reviewed Mode of arrival: ambulatory Limitations: no limitations History of Present Illness ED Provider: Tess HPI narrative: 74-year-old female presents for evaluation of ?rabies shots. Patient reports that 2 days ago she was bit by her own kitchen. She states that she was playing with a cat when it bit her on the back of the right hand. She went to urgent care today and was given a prescription for antibiotics but was sent to the ER for ?rabies shots. ? The cat belongs to the patient. The cat is [id number] and the patient has had the cat for the last 9 months. The cat is an indoor cat and has never been outside. The cat has not been vaccinated The cat has been acting appropriately Related Data Home Medications ?Medication ?Instructions ?Recorded ?Confirmed amlodipine 10 mg tablet 10 mg PO BEDTIME 06/15/20 08/19/20 anastrozole 1 mg tablet 1 mg PO DAILY 06/15/20 08/19/20 atorvastatin 80 mg tablet 80 mg PO BEDTIME 06/15/20 08/19/20 chlorthalidone 50 mg tablet 50 mg PO DAILY 06/15/20 08/19/20 Held on 08/23/20. Instructions: Resume on 08/30/20. for at least 1 week or until told to do so by your doctors clonazepam 1 mg tablet 1 mg PO DAILY 06/15/20 08/19/20 clopidogrel 75 mg tablet 75 mg PO DAILY 06/15/20 08/19/20 hydralazine 50 mg tablet 50 mg PO BID 06/15/20 08/19/20 Held on 08/23/20. Instructions: Resume on 08/30/20. hold for 1 week or longer, do not start until told by your primary doctor lisinopril 40 mg tablet 40 mg PO DAILY 06/15/20 08/19/20 Held on 08/23/20. Instructions: Resume on 08/30/20. hold until told to do so by your primary doctor loratadine 10 mg tablet 10 mg PO DAILY 06/15/20 08/19/20 metoprolol succinate 100 mg 100 mg PO DAILY 06/15/20 08/19/20 tablet,extended release 24 hr oxycodone-acetaminophen 5 mg-325 1 tab PO Q8H PRN Pain 06/15/20 08/19/20 mg tablet pantoprazole 20 mg tablet,delayed 20 mg PO DAILY 06/15/20 08/19/20 release sertraline 50 mg tablet 50 mg PO DAILY 06/15/20 08/19/20 primidone 50 mg tablet 50 mg PO BID 08/19/20 08/19/20 Previous Rx's ?Medication ?Instructions ?Recorded apixaban 2.5 mg tablet (Eliquis) 2.5 mg PO BID #60 tabs 08/23/20 Allergies Allergy/AdvReac Type Severity Reaction Status Date / Time aspirin (ASA) Allergy Severe DIFFICULTY Verified 03/21/25 19:32 BREATHING Review of Systems Constitutional: Constitutional: Denies body ache(s), Denies chills and Denies fever(s) Eyes: Eyes: Denies blurry vision ENT: Denies dizziness and Denies dry mouth Cardiovascular: Cardiovascular: Denies chest pain and Denies dyspnea on exertion Respiratory: Respiratory: Denies cough and Denies dyspnea on exertion Gastrointestinal: Gastrointestinal: Denies abdominal pain Musculoskeletal: Musculoskeletal: Denies back pain Integumentary/Breasts: Skin/Breast: Reports erythema, Denies rash and Reports wounds Neurologic: Denies dizziness Psychiatric: Psychiatric: Denies anxiety ON LICENSE OF [facility] Past Medical History Medical History (Updated 03/21/25 @ 19:33 by Jose Pulido) Atrial fibrillation with RVR Anemia Breast cancer Stroke Tremor Hyperlipidemia Hypertension CKD (chronic kidney disease) Surgical History History of appendectomy History of right mastectomy (~2016) History of spinal fusion Family History Family History Mother History of pancreatic cancer Brother History of pancreatic cancer Social History Social History Housing: Apartment Do you presently have visiting nurse or other home services: Yes ([employer] with [employer]) Alcohol intake: never Comment: given as bolus per protocol Advance Directives: No Advance Directives Information Provided: No Do you have a plan to hurt others: No Plan service: No Current occupational status: disabled Physical Exam ED Vital Signs: Vital Signs - 24 hr 03/21/25 19:27 Temperature 100.0 F Pulse Rate 102 H Respiratory Rate 19 Blood Pressure 189/93 H Pulse Oximetry 97 Oxygen Delivery Method Room Air BMI result Body Mass Index 31.5 Const General: healthy appearing, comfortable, no acute distress, alert and awake Nutritional Appearance: well nourished Orientation/consciousness: patient oriented x3 HENMT Head: Yes normocephalic and Yes atraumatic Eyes Eyelids: Yes eyelids normal Conjunctivae: conjunctivae normal Sclerae: sclerae normal Corneas: corneas normal Pupils: Equal, round and reactive pupils present EOM: EOMs intact bilaterally Neck Neck: Yes full ROM Resp Effort & Inspection: normal respiratory effort, able to speak in complete sentences and not labored Skin General skin exam: elasticity normal Neuro General: patient oriented x3 Cranial nerves: Yes Equal, round and reactive pupils present and Yes Bilaterally intact EOM present Cognition (Neuro): normal cognition Extrem Other: Healing puncture wounds to the dorsal surface of the right hand. There is some surrounding erythema with ecchymosis. The patient is able to flex and extend all fingers of the right hand with full range of motion. Patient also was full range of motion with flexion-extension of the right wrist. No streaking lymphangitis noted. Medical Decision Making Medical Decision Making MDM Narrative: The patient was sent to the ED from [facility] for rabies shots. However, the cat belongs to the patient where it can be observed. The cat is acting appropriately, this is an indoor cat there has not been outside. I discussed possible rabies vaccination versus observation with the cat and I do not feel the patient requires rabies vaccinations. The patient understands signs of abnormal behavior to look for in her cat and will return for rabies vaccination. The patient appears to have a cellulitis to the back of the right hand from the cat bite. She is currently on antibiotics after being evaluated for this. She does have a temperature of 100.0?. No evidence of tenosynovitis as she has full range of motion. I offered labs and an x-ray and the patient declines. Return precautions for the cellulitis were also given Differential Diagnosis Differential Diagnoses: The differential diagnosis associated with the presentation includes Cellulitis Abscess Tenosynovitis Cat bite Rabies exposure Discharge Plan Discharge Clinical Impression: Cat bite of hand Patient Disposition: Home, Self-Care Instructions: Animal Bite (ED), Rabies (ED) Additional Instructions: Take your antibiotics as prescribed. Return to the ER if you notice any increasing pain, swelling or if you are unable to move your fingers. Observe the cat for any abnormal behaviors. If you are cat is acting erratically then you may want to consider getting a rabies vaccination, however if it is your cat, has not been outside in his acting appropriately, rabies is highly unlikely Prescriptions: No Action primidone 50 mg tablet 50 mg PO BID Eliquis 2.5 mg Tablet 2.5 mg PO BID Qty: 60 0RF hydralazine 50 mg tablet 50 mg PO BID oxycodone-acetaminophen 5-325 mg tablet 1 tab PO Q8H PRN (Reason: Pain) Rx Instructions: KNEE PAIN sertraline 50 mg tablet 50 mg PO DAILY clonazepam 1 mg tablet 1 mg PO DAILY chlorthalidone 50 mg tablet 50 mg PO DAILY loratadine 10 mg tablet 10 mg PO DAILY pantoprazole 20 mg tablet,delayed release (DR/EC) 20 mg PO DAILY amlodipine 10 mg tablet 10 mg PO BEDTIME lisinopril 40 mg tablet 40 mg PO DAILY metoprolol succinate 100 mg tablet extended release 24 hr 100 mg PO DAILY atorvastatin 80 mg tablet 80 mg PO BEDTIME clopidogrel 75 mg tablet 75 mg PO DAILY anastrozole 1 mg tablet 1 mg PO DAILY Print Language: Tajik
[2025-03-21 19:27] VITALS: BP 189/93; PULSE 102; RESP 19; TEMP 37.8; O2SAT 97; BMI 31.5
--- OUTSIDE RECORDS SUMMARY | 2025-03-21 19:38 | XMS_ITS | Clinical Summary ---
Author Organization [facility] Address [address] [place] [address] Care Team Providers Care Route Sales Associate Name Role Phone Name, Landry BETANCUR Primary Care Provider [phone] Allergies Active Allergy Reactions Criticality Noted Date [...] 0 Active vitamin D3 (CHOLECALCIFEROL) 1.25 MG (63155 UT) CAPS capsule Take 1 capsule (50,000 [...] 95 05/13/2024 8:40 AM EDT Temperature 36.2 C (97.1 F) 05/13/2024 8:40 AM EDT Respiratory Rate - - Oxygen Saturation 100% [...] or Tdap) 05/06/2020 05/06/2010 Influenza Vaccine (#1) 2025 3, 05/30/2022, 05/10/2021, Additional history exists Shingrix-Zoster Vaccine Completed 02/09/2022, 11/15 Pneumococcal Vaccine Completed 12/05/2023, 07/09/2018, 07/09/2017 RSV Adult > 60+ Yrs or Completed 12/20/2023 Hepatitis B Vaccines Aged Out No long er eligible based on patient's age to complete this topic RSV Ped < 20 months Aged Out No longe r eligible based on patient's age to complete this topic Care Teams Route Sales Associate Relationship Specialty Start Date End Date Name, MD Landry PCP - General Internal Medicine 04/30/17
--- OUTSIDE RECORDS SUMMARY | 2025-03-21 19:38 | XMS_ITS | Encounter Summary ---
Author Organization [facility] Address [address] [place] [phone] Phone Care Team Providers Care Manager Rental Name Role Phone Name, Landry BETANCUR Primary Care Provider [phone] Encounter Details Date Type Department Care Team (Late st Contact Info) Description 01/10/2025 Office Communication [facility] [address] [place] [phone] Charli Clark MD [id number] [phone] Social History Tobacco Use Types [...] on file documented as of this encounter Miscellaneous Notes * Telephone Encounter - Charli Clark MD - 01/10/2025 7:58 AM EDT Please jason pateint and tell her to go on this new medication--1 tab 3x/wk documented in this encounter Plan of Treatment Upcoming Encounters Date Type Department Care Team (Late st Contact Info) Description 07/13/2025 3:30 PM EST Office Visit [facility] [address] [place] [phone] Charli Clark MD [phone] [phone] documented as of this encounter Visit Diagnoses Not on filedocumented in this encounter Care Teams Manager Rental Relationship Specialty Start Date End Date Name, MD Landry [address] [place] [id number] PCP - General 09/13/20 documented as of this encounter
[2025-03-21 20:08] VITALS: BP 189/93; PULSE 102; RESP 19; TEMP 37.8; O2SAT 97
== END 2025-03-21 20:08 | disposition home or self-care (01) ==
PROVIDERS: Emergency Provider Emergency Medicine; PCP Internal Medicine Geriatric Medicine
DX: S61.451A Open bite of right hand, initial encounter (principal); W55.01XA Bitten by cat, initial encounter; Y93.9 Activity, unspecified; Y92.019 Unspecified place in single-family (private) house as the place of occurrence of the external cause; Y99.9 Unspecified external cause status
CPT/HCPCS: 99282